=== PATIENT | female | born 1985 | race Caucasian/White ===

== ENCOUNTER → 2016-06-15 | Outpatient (CLI) | payer BC ==
[~2016-06-15] MED LIST: BIOT1CAP3 PO; BIOT1TAB5 PO; BSP5 PO; BUSP15TA70 PO; CHN/1 PO; CHOL20007 PO; CYAN100020 PO; DOCU1TAB6 PO; FLV1 PO; GABA-113 PO; HYDR50CA2 PO; IMT100 PO; IUD'IUD PV; LBR25 PO; LEVOIUD PO; LSX20 PO; LXP10 PO; MRLP527 PO; MULT-875 PO; NALT380I INH; NRN100 PO; ONDA4TAB46 PO; OPTIRAY 320 IV PRN; PANT40TA PO; PHEN-876 PO; POTA10TA32 PO; PXL/10 PO; SENN8.6T13 PO; SULF800T23 PO; SUMA6KIT3 SQ; THM100 PO; XNX25 PO
--- NOTE | 2016-06-15 08:52 | DIAGNOSTIC IMAGING REPORT ---
CT SCAN OF THE ABDOMEN AND PELVIS WITH IV CONTRAST CLINICAL HISTORY: Left lower quadrant abdominal pain. Nausea and weight loss. COMPARISON STUDY: Abdominal CT dated 03/16/2015. TECHNIQUE: Following the IV administration of 92 cc of Optiray 320, CT scan of the abdomen and pelvis is performed from the lung bases to the proximal femora. Images are reviewed in the axial, sagittal, and coronal planes. IV contrast was administered without complication. Automated dose control exposure was utilized. CT DOSE: 367.30 mGycm FINDINGS: Lung bases: The heart is normal in size and without pericardial effusion. A 4 mm right lower lobe nodule seen on image #2 is unchanged from 03/16/2015 and of doubtful significance. The lung bases are otherwise clear. Liver: The contrast-enhanced liver is normal in size, contour, and attenuation. Geographic fat is again seen adjacent to the falciform ligament. There is no intrahepatic biliary ductal dilatation. The hepatic veins and portal veins are patent. Gallbladder: Unremarkable. Spleen: Normal in size and attenuation. Pancreas: Unremarkable. Adrenal glands: Unremarkable. Kidneys: The contrast enhanced kidneys are normal in size and without hydronephrosis. The kidneys enhance symmetrically. 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 2 small nonobstructing renal calculi are identified in the left kidney. Abdominal vasculature: The abdominal aorta is normal in course and caliber. Stomach and bowel: Postoperative change is identified in the stomach. The duodenum is normal in configuration. There is no bowel obstruction. The appendix is well-visualized and normal. Peritoneum: There is no intraperitoneal free air or abdominal ascites. Lymphadenopathy: None. Pelvic viscera: The bladder is decompressed and grossly unremarkable. An intrauterine device is noted. There are bilateral ovarian cysts. Skeletal structures: No lytic or blastic lesions are seen. IMPRESSION: 1. There are no acute infectious or inflammatory findings identified in the abdomen or pelvis. 2. Postoperative change is noted in the stomach. No bowel obstruction is seen. 3. There are tiny nonobstructing left calculi. 4. Additional changes as above. Electronically signed by: Bud Fernandez M.D. 06/15/2016 8:51 AM Dictated Date/Time: 06/15/2016 8:44 AM
== END | disposition home or self-care (01) ==
LOC: C.CTS 08:21
PROVIDERS: ATTEND Internal Medicine Gastroenterology
DX: R10.32 Left lower quadrant pain (principal); R63.4 Abnormal weight loss; R11.10 Vomiting, unspecified

== ENCOUNTER 2016-06-23 14:57 | Inpatient (IN) | payer BC, OTHER ==
[~2016-06-23] VITALS: Ht 172.7 cm; Wt 59.3 kg
[~2016-06-23 14:57] MED LIST changes: -BIOT1TAB5 PO; -BSP5 PO; -BUSP15TA70 PO; -CHN/1 PO; -CHOL20007 PO; -GABA-113 PO; -HYDR50CA2 PO; -IMT100 PO; -IUD'IUD PV; -LEVOIUD PO; -LSX20 PO; -LXP10 PO; -MRLP527 PO; -NALT380I INH; -OPTIRAY 320 IV PRN; -PHEN-876 PO; -POTA10TA32 PO; -PXL/10 PO; -SENN8.6T13 PO; -SULF800T23 PO; -SUMA6KIT3 SQ; -XNX25 PO
[2016-06-23] MEDS ORDERED: LXP10 PO (15:20)
[2016-06-23] MEDS ORDERED: MoRPHine SULFATE 4 MG/ML 1 ML CARP\\VIAL IV STA ×2 (15:31→20:09)
[2016-06-23] MEDS ORDERED: SODIUM CHLORIDE 0.9% 1000ML 1,000 ML IV STA (15:31)
[2016-06-23] MEDS ORDERED: ONDANSETRON INJ 2 MG/ML 2 ML VIAL IV STA (15:31)
[2016-06-23] MEDS ORDERED: SODIUM CHLORIDE 0.9% 500ML 500 ML IV STA (15:31)
[2016-06-23] MEDS ORDERED: LORAZEPAM 2 MG/ML 1 ML VIAL IV STA ×2 (15:31→16:49)
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
[2016-06-23] MEDS ORDERED: MULTI-VITAMIN INFUSION INJ 10 ML, THIAMINE HCL INJ 100 MG, FoLIC ACID INJ 1 MG in SODIU... IV ONE (15:45)
[2016-06-23 16:49] LABS: HEMATOCRIT 42.3 % (37-47); MEAN CORPUSCULAR HEMOGLOBIN 34.1 pg (25-34); MEAN CORPUSCULAR HGB CONC 36.6 g/dl (32-36); MEAN PLATELET VOLUME 10.7 fL (7.4-10.4); PLATELET COUNT 241 K/uL (130-400); RED BLOOD COUNT 4.55 M/uL (4.2-5.4); WHITE BLOOD COUNT 7.08 K/uL (4.8-10.8)
[2016-06-23 16:50] LABS: PREG INTERNAL NEGATIVE QC NEG CLEAR BACKGROUND; PREG INTERNAL POSITIVE QC POS CONTROL LINE
--- NOTE | 2016-06-23 16:54 | DIAGNOSTIC IMAGING REPORT ---
ABDOMEN 2VIEW W/PA CHEST RTN CLINICAL HISTORY: vomiting, pain pain. Nausea. COMPARISON STUDY: No previous studies for comparison. FINDINGS: Lungs are clear. Diaphragms smooth. Bowel pattern is nonobstructive. Several surgical anastomotic lines are present. Intrauterine device is present within the central soft tissue pelvis. IMPRESSION: No acute process of the chest or abdomen Electronically signed by: oClin Holm M.D. 06/23/2016 4:53 PM Dictated Date/Time: 06/23/2016 4:52 PM
[2016-06-23 16:57] LABS: BUN/CREATININE RATIO 13.5 (10-20); CALCIUM 8.9 mg/dl (8.5-10.1); CREATININE 0.66 mg/dl (0.60-1.20); POTASSIUM 3.9 mmol/L (3.5-5.1)
[2016-06-23 17:02] LABS: ACETAMINOPHEN < 2 ug/ml (10-30)
[2016-06-23 17:08] LABS: ALB/GLOB RATIO 1.3 (0.9-2); THYROID STIMULATING HORMONE 1.25 uIu/ml (0.300-4.500)
[2016-06-23 17:24] LABS: URINE APPEARANCE CLEAR (CLEAR); URINE BILIRUBIN NEG (NEG); URINE COLOR YELLOW; URINE NITRITE NEG (NEG); URINE PH 7.5 (4.5-7.5); UROBILINOGEN NEG (NEG); ZZUR CULT IF INDIC CLEAN CATCH NO
[2016-06-23 17:26] LABS: MANUAL MICROSCOPIC REQUIRED? NO; REVIEW REQ? NO
[2016-06-23 17:27] LABS: SULFASALICYLIC ACID NEG (NEG)
[2016-06-23 17:51] LABS: BENZODIAZEPINE, URINE NEG (NEG); COCAINE,URINE NEG (NEG); PHENCYCLIDINE, URINE NEG (NEG)
--- NOTE | 2016-06-23 18:56 | EMERGENCY ROOM VISIT NOTE ---
ED Visit Note First contact with patient: 18:03 The patient was taken in signout from Dr. Greer. I did evaluate the patient and review the diagnostic testing. I did visit with her fiancee and the ED psych caser shoe parts. The patient was reassessed multiple times. She was complaining of a recurrent headache in her chronic abdominal discomfort. She was given 2 mg of IV morphine. On further discussion she thinks that she might have fallen while intoxicated. Because of this head CT was performed and was negative. The patient requested nicotine gum and this was given. The patient also felt like her headache was more related to her migraines which she uses Imitrex 4. She requested Imitrex on several occasions. The patient was reassessed and then was ordered her Imitrex as her mental status was clear. Repeat alcohol was performed and was still mildly elevated. This will delay her mental health evaluation. Because of this her case was signed out to Dr. Morgan at the change of shift.
[2016-06-23] MEDS ORDERED: MoRPHine SULFATE 2 MG/ML CARP ONE (20:26)
[2016-06-23] MEDS ORDERED: NICOTINE 14 MG/24 HR TDSY TD STA (21:01)
--- NOTE | 2016-06-23 21:15 | DIAGNOSTIC IMAGING REPORT ---
HEAD CT NONCONTRAST CT DOSE: 537.48 mGy.cm HISTORY: Mental status change headache, posse fall TECHNIQUE: Multiaxial CT images of the head were performed without the use of intravenous contrast. Comparison: 12/15/2015 Findings: The paranasal sinuses and mastoid air cells are clear. The calvarium and skull base are intact. The ventricles and sulci are within normal limits. There is no mass, hematoma, midline shift, or acute infarct. Impression: No acute intracranial abnormality. Electronically signed by: Colin Holm M.D. 06/23/2016 9:13 PM Dictated Date/Time: 06/23/2016 9:12 PM
[2016-06-24] MEDS ORDERED: SUMATRIPTAN SUCCINATE 50 MG TAB PO STA (03:22)
--- NOTE | 2016-06-24 06:15 | EMERGENCY ROOM VISIT NOTE ---
ED Visit Note First contact with patient: 03:44 This case was signed out to me at change of shift awaiting evaluation by mobile crisis. The patient is sleeping at this time. The patient was felt to be sober around 5 AM. 5:50am: Mobile crisis arrived in the emergency department to evaluate the patient. They did not feel that the patient met criteria for inpatient psychiatric care. When the patient was signed out to me at change of shift, there was some concern voiced by the ED doctor, the manager epic, and the ED psych casework manager from last evening that the patient should be considered for dual diagnosis placement to maintain her safety. I went back and evaluated the patient. I was able to wake her up fairly easily. The patient denied feeling actively suicidal at this time but after a lengthy discussion and voicing my concerns and the concerns of others, she was willing to admit herself voluntarily for inpatient psychiatric care and possible dual diagnosis placement. The patient explained to me that she had 1 previous rehabilitation stay for alcohol that lasted approximately 16 days at [facility]. She does not wish to go back to rehabilitation. Again, I discussed the case with the current manager epic and they will pursue inpatient bed placement. The case was signed out to Dr. Herman at change of shift.
[2016-06-24] MEDS ORDERED: LORAZEPAM 1 MG TAB SL STA (08:26)
[2016-06-24] MEDS ORDERED: NICOTINE 21 MG/24 HR TDSY TD SCH (09:00)
[2016-06-24] MEDS ORDERED: CHLORDIAZEPOXIDE 25 MG CAP PO PRN (10:30)
[2016-06-24] MEDS ORDERED: LORAZEPAM 2 MG/ML 1 ML VIAL IV STA (11:29)
[2016-06-24 11:55] VITALS: O2SAT 97
[2016-06-24] MEDS ORDERED: SODIUM CHLORIDE 0.65% NA SOLN 45 ML (OCEAN) PRN (12:30)
[2016-06-24] MEDS ORDERED: BISMUTH SUBSALICYLATE PER ML OMNICELL CHARGE PO PRN (12:30)
[2016-06-24] MEDS ORDERED: ALUMINUM/MAGNESIUM SUSP 30 ML UDC PO PRN (12:30)
[2016-06-24] MEDS ORDERED: hydrOXYzine HCL 25 MG TAB PO PRN (12:30)
[2016-06-24] MEDS ORDERED: MAGNESIUM HYDROXIDE SUSP 30 ML UDC PO PRN (12:30)
[2016-06-24] MEDS ORDERED: ACETAMINOPHEN 325 MG TAB PO PRN (12:30)
[2016-06-24] MEDS ORDERED: CHLORDIAZEPOXIDE 25 MG CAP PO SCH (12:45)
[2016-06-24] MEDS ORDERED: DOCUSATE SODIUM 100 MG CAP PO PRN (12:45)
[2016-06-24] MEDS ORDERED: GABAPENTIN 600 MG TAB PO SCH (12:45)
[2016-06-24] MEDS ORDERED: LORAZEPAM 2 MG/ML 1 ML VIAL IM PRN (12:45)
[2016-06-24 12:55] VITALS: BP 133/82; PULSE 114; TEMP 37.7; Ht 172.7 cm; Wt 59.3 kg
[2016-06-24] MEDS ORDERED: CHLORDIAZEPOXIDE 50MG Q8H DOSE PO SCH (14:00)
[2016-06-24] MEDS ORDERED: CHLORDIAZEPOXIDE 25MG Q8H DOSE PO SCH (14:00)
[2016-06-24] MEDS: CHLORDIAZEPOXIDE 50MG 1ST DOSE PO SCH ×2 (14:07→17:02)
--- NOTE | 2016-06-24 14:59 | EMERGENCY ROOM VISIT NOTE ---
ED Visit Note Patient signed out to me awaiting bed placement. Treated with Ativen IM and PO Librium. Accepted to [address] [place] [id number] as a 201.
[2016-06-24] MEDS ORDERED: CHLORDIAZEPOXIDE 10MG Q12H DOSE PO SCH (18:00)
[2016-06-24 23:57] VITALS: BP 116/73; PULSE 72; TEMP 36.8
[2016-06-25] MEDS: CHLORDIAZEPOXIDE 50MG 1ST DOSE PO SCH ×2 (00:02→05:52)
[2016-06-25 04:09] VITALS: BP_SYST 109; BP_SYST 111; BP_DIAS 67; BP_DIAS 80; PULSE 71; PULSE 76; TEMP 36.9
[2016-06-25] MEDS: NICOTINE 21 MG/24 HR TDSY TD SCH (05:53)
[2016-06-25 05:58] VITALS: BP 111/75; PULSE 85; TEMP 36.7
[2016-06-25 06:16] VITALS: BP 111/75; PULSE 76; PULSE 85; TEMP 36.7
[2016-06-25 08:51] VITALS: BP 130/90; PULSE 85; TEMP 36.8
[2016-06-25] MEDS ORDERED: NICOTINE 7 MG/24 HR TDSY TD SCH (09:00)
[2016-06-25] MEDS ORDERED: NICOTINE 14 MG/24 HR TDSY TD SCH (09:00)
[2016-06-25] MEDS ORDERED: LORAZEPAM 1 MG TAB PO PRN (11:00)
[2016-06-25] MEDS: NICOTINE POLACRILEX 2 MG GUM MT PRN ×3 (12:22→20:36)
[2016-06-25 12:34] VITALS: BP 123/83; PULSE 85
[2016-06-25] MEDS: hydrOXYzine HCL 25 MG TAB PO PRN (12:34)
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
[2016-06-25] MEDS: CHLORDIAZEPOXIDE 50MG Q8H DOSE PO SCH ×2 (13:42→21:03)
[2016-06-26 04:36] VITALS: BP 103/72; PULSE 78; TEMP 36.3
[2016-06-26] MEDS: CHLORDIAZEPOXIDE 50MG Q8H DOSE PO SCH (05:51)
[2016-06-26 06:45] VITALS: BP_SYST 91; BP_SYST 93; BP_DIAS 61; BP_DIAS 64; PULSE 63; PULSE 65; TEMP 36.8
[2016-06-26] MEDS: NICOTINE 21 MG/24 HR TDSY TD SCH (09:08)
[2016-06-26 09:26] VITALS: BP 100/69; PULSE 79; TEMP 36.4
[2016-06-26] MEDS: hydrOXYzine HCL 25 MG TAB PO PRN (10:12)
[2016-06-26] MEDS: NICOTINE POLACRILEX 2 MG GUM MT PRN ×3 (11:30→21:32)
[2016-06-26] MEDS: CHLORDIAZEPOXIDE 25MG Q8H DOSE PO SCH ×2 (14:02→21:31)
[2016-06-26 16:01] VITALS: BP 109/77; PULSE 89; TEMP 36.5
--- NOTE | 2016-06-26 16:37 | Psychiatric Progress Notes ---
Progress Note Date of Service Jun 26, 2016. Interval History Marina Ny is a 31-year-old female who resides in [place], [place] with her fiance. She was admitted voluntarily with suicidal ideation. Her boyfriend wrote a 302 petition with concerns that she was drinking daily to the point of intoxication and was at risk to harm for herself and making suicidal statements. Chief Complaint "I am fine". Subjective Patient was seen & assessed interval progress reviewed with nursing. Patient is very anxious and upset. she continues to retreat to the bathroom after eating a bites. Denies nausea but say it "just comes up." She had a meeting with her boyfriend today and patient became agitated about her constant vomiting. She plans to follow up with PCP and get referral back to GI. Neither patient or boyfriend view vomiting related to anxiety or mood. She is very anxious today and says the vistaril is not helpful. She does continue to minimize her drinking. In the family meeting her boyfriend expressed significant worry about her safety related to drinking. He became very angry and cursed about rehab places. During my interview with her today she burst in tears after asking when she could be discharge and said that her mother will "make life a living hell" when she goes home. She refuses to have a meeting with her mother while she is here in the hospital because she insists that it will only make matters worse. She agreed to do combined substance abuse counseling and psychotherapy but adamantly refuses inpatient rehab or outpatient substance abuse programs. Patient denies suicidal ideation or thoughts or harming others and becomes exasperated and angry that I would ask these questions. Patient was seen on consult by Dr. Laureen Wayne and it was documented that she agreed to substance abuse treatment on an outpatient basis at that time. Patient denies that she agreed to this. Review of Systems Abdomen: + vomiting Sleep Information Total Hours of Sleep: 5.50 Meal Information Percent of Breakfast Consumed: 0 Percent of Lunch Consumed: 100 Percent of Dinner Consumed: 50 Mental Status Exam During interview pt is: alert and oriented, guarded Appearance: appropriately dressed, appropriately groomed Eye contact is: good Motor behavior is: steady gait & station Speech: normal in rate, rhythm & volume Affect: mood congruent Mood is: angry, anxious Thought process: goal directed Thought content: reality based without delusions Suicidal thought are: denied Homicidal thoughts are: denied Hallucinations: denies auditory, denies visual Cognition: memory grossly intact Intelligence estimated to be: average Insight: impaired Judgement: impaired Impression This is a 31-year-old woman who was admitted after she was found to be intoxicated, lying on the sidewalk in front of her home, her boyfriend and wrote a 302 petitioning statement with his concerns about her inability to care for herself, ongoing suicidality in the context of her alcohol abuse. She tends to minimize her alcohol use and impact on mood although on some level recognizes that it is harmful. She does have medical problems following gastric sleeve surgery. Her primary issue is her alcohol abuse and dependence. She has not had a period when she did not have alcohol use overlying her mood and it is unclear whether or not treating her mood with medication would be helpful at this time. Our primary recommendation would be inpatient rehabilitation; however, the patient is unwilling to consider this option. At this time, the patient is in alcohol withdrawal phase and needs to be monitored in that regard. She is in need of inpatient treatment due to the severity of her condition and her inability to care for herself and risk for self-harm if discharged. Continued Inpatient Care Patient requires inpatient care due to risk of harm to self. Plan (1) Alcohol abuse 2/6 Alcohol use disorder, severe -We will need to educate this patient about the ongoing effects of alcohol abuse and dependence. -She will need a family meeting with her boyfriend. At this point, she is unwilling to include her mother in her care and does not necessarily want her to be here. She did sign a release for her boyfriend and is reportedly allowing him to tell her parents or her mother and stepfather. -Our primary recommendation is inpatient rehabilitation, she is not willing. At this point, we should continue to encourage the patient to consider that. The only thing said she is willing to do at this point is 1:1 counseling, although she did say that she would do that when she was seen on consult in February and did not follow through. - She is on the alcohol withdrawal protocol -q. 15minute safety checks. -Encourage the patient to participate in individual and group counseling. - We will continue the patient's at home supplements if her boyfriend brings them in. - We briefly discussed retrialing an SSRI for her anxiety and mood, which we will continue to consider if she is willing, although it is unclear how much this would be useful as her primary issue is her ongoing alcohol dependence. 06/26 discussed medication for depression and anxiety. patient's anxiety is increased and ongoing. Reviewed the limited benefit of medications if continues to use alcohol. Patient agrees to trial of Buspar 5 mg bid. Review potential side effects. May use Vistaril prn (2) Depression 06/25 We briefly discussed retrialing an SSRI for her anxiety and mood, which we will continue to consider if she is willing, although it is unclear how much this would be useful as her primary issue is her ongoing alcohol dependence. Patient wants something for anxiety. 06/26 continues to be ambivalent about medication for depression as didn't feel Lexapro helpful. Again reviewed limits of medication in primary substance abuse situation. Agrees to trial of buspar as above Discharge / Aftercare Planning Primary Care Physician: Name: Dr Burgess Appointment Notes: as needed Psychiatrist: Name: Paolo Toth Date of Appointment: Jul 04, 2016 Time of Appointment: 1245 Appointment Notes: take insurance card - [address] [place] [address], [place] [id number] Therapist: Name: Har[facility] Phone Number: [phone] Date of Appointment: Jul 03, 2016 Time of Appointment: 3:00 Appointment Notes: [address] [facility] Senior Project Coordinator: Name: cleve Visit Code E&M Code: 60975 Inventory Assets Strengths: Intelligence, employed Needs: To be forthcoming, regarding her the extent of her alcohol use and to be engaged in active treatment. Risk Factors Assessment : Yes Higher / Fall in social status: No Access to guns: No Health problems: Yes Mental Health Diagnoses: Yes Substance use disorders: Yes Previous psychiatric stay: No Smoker: Yes Protective Factors Assessment Lutheran beliefs: No : No Responsible for young children: No Employed: Yes Stable relationships: Yes Data Vital Signs Last 24 Hrs: Date Time Temp Pulse Resp B/P Pulse Ox O2 Delivery O2 Flow Rate FiO2 06/26/16 16:01 36.5 89 16 109/77 06/26/16 09:26 36.4 79 16 100/69 06/26/16 06:45 36.8 63 15 91/61 65 93/64 06/26/16 04:36 36.3 78 16 103/72 Meds Administered Last 24 Hrs: Current Inpatient Medications Medications (Trade) Dose Ordered Sig/Paulette Route Start Time Stop Time Status Last Admin Dose Admin Acetaminophen (Tylenol Tab) 650 mg Q4H PRN PO 06/24/16 12:30 07/24/16 12:29 Bismuth Subsalicylate (Kaopectate Liqd) 15 ml PRN PRN PO 06/24/16 12:30 07/24/16 12:29 Al Hydroxide/Mg Hydroxide (Maalox Susp) 30 ml Q4H PRN PO 06/24/16 12:30 07/24/16 12:29 Magnesium Hydroxide (Milk Of Magnesia Susp) 30 ml DAILY PRN PO 06/24/16 12:30 07/24/16 12:29 Sodium Chloride ([place] Nasal [place]) PRN PRN NA 06/24/16 12:30 07/24/16 12:29 Hydroxyzine HCl (Vistaril Tab) 50 mg HSZ PRN PO 06/24/16 12:30 07/24/16 12:29 06/26/16 00:06 50 MG Hydroxyzine HCl (Vistaril Tab) 25 mg Q4H PRN PO 06/24/16 12:30 07/24/16 12:29 06/26/16 10:12 25 MG Nicotine (Nicoderm Cq 21MG Patch) 1 patch QAM TD 06/25/16 09:00 07/25/16 08:59 06/26/16 09:08 1 PATCH Nicotine Polacrilex (Nicorette 2MG Gum) 1 piece Q2H PRN MT 06/24/16 12:30 07/24/16 12:29 06/26/16 15:51 1 PIECE Miscellaneous (Remove Nicoderm Patch) 1 ea HS N/A 06/24/16 22:00 07/24/16 21:59 06/25/16 22:23 1 EA Docusate Sodium (coLACE CAP) 100 mg BID PRN PO 06/24/16 12:45 07/24/16 12:44 Lorazepam (Ativan Inj) 2 mg TID PRN IM 06/24/16 12:45 07/24/16 12:44 06/24/16 21:00 2 MG Chlordiazepoxide (Librium Cap) 25 mg Q8H PO 06/26/16 14:00 06/27/16 06:01 06/26/16 14:02 25 MG Chlordiazepoxide (Librium Cap) 10 mg Q12H PO 06/27/16 18:00 06/28/16 06:01 Lorazepam (Ativan Tab) 1 mg UD PRN PO 06/25/16 11:00 07/25/16 10:59 06/25/16 20:36 1 MG Buspirone HCl (Buspar Tab) 5 mg BID PO 06/26/16 22:00 07/26/16 21:59
[2016-06-26 20:11] VITALS: BP 116/79; PULSE 84; TEMP 36.5
[2016-06-27] MEDS: CHLORDIAZEPOXIDE 25MG Q8H DOSE PO SCH (06:24)
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
[2016-06-27 08:35] VITALS: BP 120/79; PULSE 74; TEMP 36.4
[2016-06-27] MEDS: NICOTINE 21 MG/24 HR TDSY TD SCH (09:01)
[2016-06-27] MEDS: NICOTINE POLACRILEX 2 MG GUM MT PRN ×2 (10:08→14:19)
[2016-06-27] MEDS ORDERED: BSP5 PO (12:08)
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
[2016-06-27 13:02] VITALS: BP 120/78; PULSE 65; PULSE 74; TEMP 36.4
[2016-06-27 14:41] LABS: COD UR NEGATIVE NG/ML (CUTOFF=50); HYDROCOD UR NEGATIVE NG/ML (CUTOFF=50); HYDROMOR UR NEGATIVE NG/ML (CUTOFF=50); MORPHINE UR 761 NG/ML (CUTOFF=50); NORHYDROCODONE CONF UR NEGATIVE NG/ML (CUTOFF=50); OXYMORPH UR NEGATIVE NG/ML (CUTOFF=50)
[2016-06-27 16:08] VITALS: BP 121/84; PULSE 78; TEMP 36.7
[2016-06-27] MEDS ORDERED: CHLORDIAZEPOXIDE 10MG Q12H DOSE PO SCH (18:00)
[2016-12-05] MEDS ORDERED: CHN/1 PO (19:31)
== END 2016-06-27 18:55 | disposition home or self-care (01) | DRG 897 ==
LOC: C.EDB 14:59 → C.MHU 06-24 11:58
PROVIDERS: ADMIT Psychiatry & Neurology Psychiatry; ATTEND Psychiatry & Neurology Psychiatry
DX: F10.239 Alcohol dependence with withdrawal, unspecified (principal); F32.89 Other specified depressive episodes; F41.9 Anxiety disorder, unspecified; R10.9 Unspecified abdominal pain; R51 Headache; F17.210 Nicotine dependence, cigarettes, uncomplicated; Z62.810 Personal history of physical and sexual abuse in childhood; Z91.419 Personal history of unspecified adult abuse; Z86.59 Personal history of other mental and behavioral disorders; Z98.84 Bariatric surgery status; Z97.5 Presence of (intrauterine) contraceptive device; Z81.1 Family history of alcohol abuse and dependence; Z82.49 Family history of ischemic heart disease and other diseases of the circulatory system; Z83.49 Family history of other endocrine, nutritional and metabolic diseases

== ENCOUNTER → 2016-11-03 | Outpatient (CLI) | payer BC ==
[~2016-11-03] MED LIST changes: +BIOT1TAB5 PO; +BSP5 PO; +BUSP15TA70 PO; +BUSP30TA2 PO; +CHN/1 PO; +CHOL20007 PO; -CYAN100020 PO; +DSY100 PO; -FLV1 PO; +GABA-113 PO; +HYDR50CA PO; +HYDR50CA2 PO; +IMT100 PO; +IUD'IUD PV; -LBR25 PO; +LEVOIUD PO; +LSX20 PO; +MIDO5TAB PO; +MRLP527 PO; +NALT380I INH; -NRN100 PO; -ONDA4TAB46 PO; -PANT40TA PO; +PHEN-876 PO; +POTA10TA32 PO; +PXL/10 PO; +SENN1TAB80 PO; +SULF800T23 PO; +SUMA1INJ5 SQ; +SUMA6KIT3 SQ; -THM100 PO; +XNX25 PO; +ZLF/50 PO
--- NOTE | 2016-11-03 19:22 | DIAGNOSTIC IMAGING REPORT ---
SACRUM COCCYX MIN 2 VIEWS CLINICAL HISTORY: M53.3 pain. Trauma. COMPARISON STUDY: None FINDINGS: No acute process. Margins are intact. IMPRESSION: Negative study Electronically signed by: Colin Holm M.D. 11/03/2016 7:20 PM Dictated Date/Time: 11/03/2016 7:20 PM
== END | disposition home or self-care (01) ==
LOC: C.RAD 18:40
PROVIDERS: ATTEND Family Medicine
DX: M53.3 Sacrococcygeal disorders, not elsewhere classified (principal)

== ENCOUNTER 2016-11-24 18:17 | Emergency (ER) | payer BC ==
[~2016-11-24] VITALS: Ht 172.7 cm; Wt 51.6 kg
[~2016-11-24 18:17] MED LIST changes: -BIOT1TAB5 PO; -BUSP15TA70 PO; -BUSP30TA2 PO; -CHN/1 PO; -CHOL20007 PO; -DSY100 PO; -GABA-113 PO; -HYDR50CA PO; -HYDR50CA2 PO; -IMT100 PO; -IUD'IUD PV; -LEVOIUD PO; -LSX20 PO; -MIDO5TAB PO; -MRLP527 PO; -NALT380I INH; -PHEN-876 PO; -POTA10TA32 PO; -PXL/10 PO; -SENN1TAB80 PO; -SULF800T23 PO; -SUMA1INJ5 SQ; -SUMA6KIT3 SQ; -XNX25 PO; -ZLF/50 PO
[2016-11-24 18:26] VITALS: TEMP 37; Ht 172.7 cm; Wt 51.6 kg
[2016-11-24 18:40] VITALS: O2SAT 100
--- NOTE | 2016-11-24 18:43 | EMERGENCY ROOM VISIT NOTE ---
History Report prepared by Piotr: Ruthy Hernandez Under the Supervision of: Dr. Man Almaraz M.D. First contact with patient: 18:28 Chief Complaint: ALCOHOL OVERDOSE Stated Complaint: ALCOHOL OVERDOSE/ COMBATIVE History of Present Illness The patient is a 31 year old female who presents to the Emergency Room for an alcohol overdose. Per the police who obtained the information on the scene from the patient's fiance. The patient is currently taking Chantix to help her quite smoking. Her fiance has been trying to bring her into the ED for the past 3 days due to the patient having yelling outburst and hallucinations. She has been experiencing trouble sleeping and has not slept much over the past 3 days. She thinks "someone is going to kill her is she sleeps". The patient has been saying that she does not drink however police report her smelling of alcohol. She was combative getting into the ambulance. The patient on September 14 had a gastric sleeve operation completed. Since then she has been experiencing complications, she is unable to stop loosing weight. The patient has been inpatient at [facility]. Per the patient, she states that she was not drinking today. She states that she does drink on occasion and when she does she drinks vodka. The patient notes abdominal pain. She notes her gastric sleeve surgery. The patient has been calling out "they are going to kill me". This HPI is limited due to the patient's intoxicated state. Source of History: patient, police, spouse/significant other History Limited By: intoxication Position: other (global) Quality: other (alcohol intoxication) Associated Symptoms: + abdominal pain Review of Systems All systems have been listed, reviewed, and are negative other than those previously mentioned. Please see Additional Medical History Sheet. Past Medical & Surgical Medical Problems: (1) Alcohol abuse (2) Asthma, mild persistent (3) Depression (4) Dyslipidemia (5) Nausea and vomiting (6) Urethra, diverticulum (7) Vomiting Surgical Problems: (1) H/O arthroscopy of left knee (2) H/O wisdom tooth extraction (3) History of orthopedic surgery (4) History of sleeve gastrectomy (5) History of tonsillectomy and adenoidectomy (6) S/P foot surgery, left (7) S/P tonsillectomy and adenoidectomy (8) [place] teeth extracted Family History Heart disease Hypertension Social History Smoking Status: Current Every Day Smoker Alcohol Use: occasionally Drug Use: none Marital Status: single Housing Status: lives with family Occupation Status: employed Current/Historical Medications Scheduled Biotin (Biotin), 1,000 MCG PO TID Cholecalciferol (Vitamin D3), 1 TAB PO DAILY Levonorgestrel (Iud) (Mirena), 20 MCG PO DAILY Paroxetine (Paroxetine HCl), 10 MG PO DAILY Potassium Chloride Microencaps (Potassium Chloride Er), 10 MEQ PO UD Varenicline (Chantix), 1 MG PO BID UD Scheduled PRN Alprazolam (Alprazolam), 0.25 MG PO TID PRN for Anxiety Furosemide (Furosemide), 20 MG PO DAILY PRN for FLUID Allergies Coded Allergies: No Known Allergies (Verified , `, 06/23/16) Physical Exam Vital Signs Date Time Temp Pulse Resp B/P (MAP) Pulse Ox O2 Delivery O2 Flow Rate FiO2 11/24/16 19:47 95 17 93 11/24/16 19:17 89 20 100 11/24/16 19:02 90 17 121/84 100 Room Air 11/24/16 19:00 121/84 11/24/16 18:47 89 13 99 11/24/16 18:40 100 Room Air 11/24/16 18:28 106 11/24/16 18:26 37.0 105 16 122/87 100 Room Air 11/24/16 18:20 122/87 Physical Exam GENERAL: Patient appears intoxicated. Patient is somewhat cooperative, hysterical at times. Patient awake, alert, oriented x 3. SKIN: No erythema, pallor, cyanosis or rash HEENT: Normal head, pupils equal, reactive to light and accommodation. Oral cavity and posterior pharynx appear normal. Neck: Without adenopathy, no neck vein distention. LUNGS: Clear to auscultation. No wheezes, no rales, no rhonchi. HEART: No murmurs. No gallops. No rubs ABDOMEN: Appears emaciated. No masses, no rebound, no hepatomegaly or splenomegaly. EXTREMITIES: No signs of trauma. No pedal or pretibial edema. No calf or thigh tenderness. NEUROLOGIC: Cranial nerves II-XII within normal limits. No gross motor sensory function deficits. Medical Decision & Procedures Laboratory Results 11/24/16 18:48 7/8/17 18:48 Test 11/24/16 18:48 11/24/16 19:40 Red Blood Count 4.10 M/uL (4.2-5.4) Mean Corpuscular Volume 95.6 fL (80-100) Mean Corpuscular Hemoglobin 33.7 pg (25-34) Mean Corpuscular Hemoglobin Concent 35.2 g/dl (32-36) RDW Standard Deviation 42.9 fL (36.4-46.3) RDW Coefficient of Variation 12.4 % (11.5-14.5) Mean Platelet Volume 9.4 fL (7.4-10.4) Anion Gap 10.0 mmol/L (3-11) Est Creatinine Clear Calc Drug Dose 91.8 ml/min Estimated GFR () 128.1 Estimated GFR (Non- 110.5 BUN/Creatinine Ratio 10.1 (10-20) Calcium Level 8.5 mg/dl (8.5-10.1) Total Bilirubin 0.1 mg/dl (0.2-1) Aspartate Amino Transf (AST/SGOT) 498 U/L (15-37) Alanine Aminotransferase (ALT/SGPT) 440 U/L (12-78) Alkaline Phosphatase 100 U/L (45-117) Total Protein 7.0 gm/dl (6.4-8.2) Albumin 3.7 gm/dl (3.4-5.0) Globulin 3.3 gm/dl (2.5-4.0) Albumin/Globulin Ratio 1.1 (0.9-2) Ethyl Alcohol mg/dL 430.0 mg/dl (0-3) Urine Color YELLOW Urine Appearance CLEAR (CLEAR) Urine pH 7.0 (4.5-7.5) Urine Specific [place] 1.010 (1.000-1.030) Urine Protein TRACE (NEG) Urine Glucose (UA) NEG (NEG) Urine Ketones NEG (NEG) Urine Occult Blood TRACE (NEG) Urine Nitrite NEG (NEG) Urine Bilirubin NEG (NEG) Urine Urobilinogen NEG (NEG) Urine Leukocyte Esterase NEG (NEG) Urine WBC (Auto) /hpf (0-5) Urine RBC (Auto) /hpf (0-4) Urine Hyaline Casts (Auto) /lpf (0-5) Urine Epithelial Cells (Auto) /lpf (0-5) Urine Bacteria (Auto) (NEG) Urine RBC 0-4 /hpf (0-4) Urine WBC 1-5 /hpf (0-5) Urine Epithelial Cells 20-30 /lpf (0-5) Urine Calcium Oxalate Crystals PRESENT (NONE PRSENT) Urine Bacteria NEG (NEG) Urine Test NEG (NEG) Laboratory results as stated above per my review. Medications Administered Medications (Trade) Dose Ordered Sig/Paulette Route Start Time Stop Time Status Last Admin Dose Admin Ondansetron HCl (Zofran Inj) 4 mg PRN PRN IV 11/24/16 18:45 12/24/16 18:44 11/24/16 18:58 4 MG ED Course 1825: Past medical records reviewed. The patient was evaluated in room C6. A complete history and physical examination was performed. 1844: Zofran Inj 4 mg IV. 2030: The patient was signed out to Dr. Son at change of shift. Medical Decision Nurses notes reviewed. Medical history sheet reviewed. Differential diagnosis includes but is not limited to: drug or alcohol intoxication, depression, suicidal ideation. The patient has been apparently depressed for at least a few weeks. She also had some suicidal type statements prior to arrival. The patient is intoxicated and is unable to provide adequate history and evaluation of her mental status at this time. The patient will require observation until she is able to be thoroughly evaluated by mental health. The patient was signed off to Dr. Son at change of shift. Medication Reconciliation: I attest that I have personally reviewed the patient' s current medication list. Blood pressure Screening: Patient was found to have normal blood pressure on screening and does not require follow up. Impression Primary Impression: Alcohol overdose Additional Impressions: Depression Suicidal ideation Hypokalemia Scribe Attestation The scribe's documentation has been prepared under my direction and personally reviewed by me in its entirety. I confirm that the note above accurately reflects all work, treatment, procedures, and medical decision making performed by me. Departure Information Dispostion Still a Patient Referrals Isaiah Jones M.D. (PCP) Patient Instructions My [facility] Problem Qualifiers
[2016-11-24] MEDS ORDERED: ONDANSETRON INJ 2 MG/ML 2 ML VIAL IV PRN (18:45)
[2016-11-24 19:14] LABS: HEMATOCRIT 39.2 % (37-47); MEAN CELL VOLUME 95.6 fL (80-100); MEAN CORPUSCULAR HEMOGLOBIN 33.7 pg (25-34); MEAN CORPUSCULAR HGB CONC 35.2 g/dl (32-36); MEAN PLATELET VOLUME 9.4 fL (7.4-10.4); PLATELET COUNT 268 K/uL (130-400); WHITE BLOOD COUNT 5.47 K/uL (4.8-10.8)
[2016-11-24] MEDS ORDERED: POTA10TA32 PO (19:31)
[2016-11-24] MEDS ORDERED: LSX20 PO (19:31)
[2016-11-24] MEDS ORDERED: PXL/10 PO (19:31)
[2016-11-24] MEDS ORDERED: BIOT1TAB5 PO (19:31)
[2016-11-24] MEDS ORDERED: XNX25 PO (19:31)
[2016-11-24] MEDS ORDERED: CHOL20007 PO (19:31)
[2016-11-24 19:42] LABS: BUN/CREATININE RATIO 10.1 (10-20); CALCIUM 8.5 mg/dl (8.5-10.1); CREATININE 0.73 mg/dl (0.60-1.20); POTASSIUM 3.1 mmol/L (3.5-5.1)
[2016-11-24 19:45] LABS: ALB/GLOB RATIO 1.1 (0.9-2)
[2016-11-24 19:58] LABS: MANUAL MICROSCOPIC REQUIRED? YES; REVIEW REQ? NO; URINE APPEARANCE CLEAR (CLEAR); URINE BILIRUBIN NEG (NEG); URINE COLOR YELLOW; URINE NITRITE NEG (NEG); UROBILINOGEN NEG (NEG); ZZUR CULT IF INDIC CLEAN CATCH NO
[2016-11-24 20:09] LABS: URINE BACTERIA NEG (NEG); URINE RBC 0-4 /hpf (0-4)
[2016-11-24 21:12] LABS: ACETAMINOPHEN < 2 ug/ml (10-30)
--- NOTE | 2016-11-25 02:14 | EMERGENCY ROOM VISIT NOTE ---
ED Visit Note This patient was signed out to me by Dr. Almaraz. Please see his dictation for further details. The patient made some suicidal statements and is highly intoxicated. She will need reassessment and possible mental health evaluation. The patient was sleeping the entire time. I did not interact with her. I did sign the patient out at 2:[address] Anaya.
--- NOTE | 2016-11-25 07:37 | EMERGENCY ROOM VISIT NOTE ---
ED Visit Note First contact with patient: 02:30 31 yr old heavily intoxicated female arrived to ED earlier in evening making suicidal threats. Sleeping now and still severely intoxicated. Signed out to me by Dr Son awaiting sobering up and mental health evaluation. Monitored throughout evening without issue and signed out to Dr Herman in the morning awaiting sobering up.
[2016-11-25 12:32] VITALS: BP 116/74
--- NOTE | 2016-11-25 13:02 | EMERGENCY ROOM VISIT NOTE ---
ED Visit Note First contact with patient: 18:28 I saw this young woman almost 24 hours ago for severe alcohol intoxication. The patient also had made some suicidal type statements. There's been a history of depression. 302 was completed by police. The patient denies any current suicidal ideation. She also believes that she can stop drinking alcohol on her own. The patient has a counselor but is reluctant to see the counselor due to the high co-pays. I also discussed care with the patient's fianc. I spent time speaking with mental health from [facility] [address]. The patient does not meet criteria for a completion of the 302. The patient will therefore be allowed to leave but she was strongly encouraged to follow-up with an alcohol rehabilitation program. She was also told that she cannot have any alcohol. The patient has assured me that she will be safe at home. She denies any suicidal intent and promises that she will not hurt herself.
[2016-11-25 13:20] VITALS: PULSE 88; O2SAT 98
--- NOTE | 2016-11-25 14:49 | EMERGENCY ROOM VISIT NOTE ---
ED Visit Note Patient was signed out to me, however I did not see the patient. Since Dr. Almaraz saw the patient yesterday, he assumed care of the patient. See his note for disposition.
[2016-12-05] MEDS ORDERED: CHN/1 PO (19:31)
== END 2016-11-25 13:20 | disposition home or self-care (01) ==
LOC: EDBD 18:17 → C.EDC 18:21 → C.EDA 11-25 13:20
DX: T51.91XA Toxic effect of unspecified alcohol, accidental (unintentional), initial encounter (principal); R45.6 Violent behavior; F32.9 Major depressive disorder, single episode, unspecified; R45.851 Suicidal ideations; E87.6 Hypokalemia

== ENCOUNTER 2016-12-05 21:54 | Emergency (ER) | payer BC ==
[~2016-12-05] VITALS: Ht 172.7 cm; Wt 50.0 kg
[~2016-12-05 21:54] MED LIST changes: -BIOT1CAP3 PO; +BIOT1TAB5 PO; -BSP5 PO; +CHN/1 PO; +CHOL20007 PO; -DOCU1TAB6 PO; -MULT-875 PO
[2016-12-05 22:01] VITALS: TEMP 37.3; Ht 172.7 cm; Wt 50.0 kg
[2016-12-05] MEDS ORDERED: NICOTINE 21 MG/24 HR TDSY EXT STA (22:16)
[2016-12-05] MEDS ORDERED: PROMETHAZINE HCL INJ 12.5 MG in SODIUM CHLORIDE 0.9% 50ML 50 ML IV STA (22:16)
[2016-12-05] MEDS ORDERED: SODIUM CHLORIDE 0.9% 1000ML 500 ML IV STA (22:16)
[2016-12-05] MEDS ORDERED: MULTI-VITAMIN INFUSION INJ 10 ML, THIAMINE HCL INJ 100 MG, FoLIC ACID INJ 1 MG in SODIU... IV ONE (22:30)
[2016-12-05 22:41] LABS: HEMATOCRIT 45.3 % (37-47); MEAN CELL VOLUME 94.4 fL (80-100); MEAN CORPUSCULAR HEMOGLOBIN 33.3 pg (25-34); MEAN CORPUSCULAR HGB CONC 35.3 g/dl (32-36); MEAN PLATELET VOLUME 9.7 fL (7.4-10.4); PLATELET COUNT 289 K/uL (130-400); WHITE BLOOD COUNT 7.96 K/uL (4.8-10.8)
[2016-12-05] MEDS ORDERED: LEVOIUD PO (22:47)
--- NOTE | 2016-12-05 22:49 | EMERGENCY ROOM VISIT NOTE ---
History Report prepared by Piotr: Nadege Olivas Under the Supervision of: Dr. Bud Greer M.D. 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 The patient's family friend is at bedside and she states that it was hard to keep the patient awake so they brought her into the ED for further evaluation. The patient's family friend was concerned that the patient drank too much alcohol and that she might . The patient admits to being an alcoholic. The patient's last drink of alcohol was just prior to coming into the ED. She states that she wants more. The patient is also experiencing diffuse abdominal pain. She states that she does not eat much secondary to previous abdominal surgeries. The patient states that she vomits constantly. The patient was evaluated in the ED on November 24 for an alcohol overdose. She states that she was going to quit on her own after being in the hospital but that did not work because she quit her job. The patient states that she would like to go to rehab. She has been to [facility] but does not want to go back there. The patient called [facility] [employer] [facility] today but they told her that they will check with her insurance and then get back to her tomorrow. The patient states that she drinks 1 liter of vodka a day. Source of History: patient, spouse/significant other, friend Onset: HOOK TENDER Position: other (global) Quality: other (alcohol overdose) Timing: constant Associated Symptoms: + vomiting, + abdominal pain Review of Systems See HPI for pertinent positives & negatives. A total of 10 systems reviewed and were otherwise negative. Past Medical & Surgical Medical Problems: (1) Alcohol abuse (2) Asthma, mild persistent (3) Depression (4) Dyslipidemia (5) Nausea and vomiting (6) Urethra, diverticulum (7) Vomiting Surgical Problems: (1) H/O arthroscopy of left knee (2) H/O wisdom tooth extraction (3) History of orthopedic surgery (4) History of sleeve gastrectomy (5) History of tonsillectomy and adenoidectomy (6) S/P foot surgery, left (7) S/P tonsillectomy and adenoidectomy (8) [place] teeth extracted Family History Heart disease Hypertension Social History Smoking Status: Current Every Day Smoker Alcohol Use: occasionally Drug Use: none Marital Status: single Housing Status: lives with family Occupation Status: employed Current/Historical Medications Scheduled Levonorgestrel (Iud) (Mirena), 20 MCG PO DAILY Varenicline (Chantix), 1 MG PO BID UD Allergies Coded Allergies: No Known Allergies (Verified , `, 06/23/16) Physical Exam Vital Signs Date Time Temp Pulse Resp B/P (MAP) Pulse Ox O2 Delivery O2 Flow Rate FiO2 12/05/16 23:41 84 16 116/86 98 Room Air 12/05/16 23:15 81 12/05/16 23:11 96 Room Air 12/05/16 22:01 37.3 96 20 138/97 95 Room Air Physical Exam GENERAL: Patient is in no acute distress. Patient has the smell of alcohol on her breath. HEENT: No acute trauma, normocephalic atraumatic, mucous membranes moist, no nasal congestion, no scleral icterus. NECK: No stridor, no adenopathy, no meningismus, trachea is midline. LUNGS: Clear to auscultation bilaterally, no wheeze, no rhonchi, breath sounds equal. HEART: Without murmurs gallops or rubs, regular rate and rhythm. ABDOMEN: Soft, diffusely mildly tender, bowel sounds positive, no hernias, no peritonitis. EXTREMITIES: No cyanosis or edema, full range of motion of all the joints without pain or difficulty, no signs for acute trauma. NEUROLOGIC: Significant intoxication with alcohol, oriented x 3, no acute motor or sensory deficits, no focal weakness. SKIN: No rash, no jaundice, no diaphoresis. Medical Decision & Procedures Laboratory Results 12/05/16 22:25 12/05/16 22:25 Test 12/05/16 22:25 12/05/16 22:53 12/05/16 23:03 Red Blood Count 4.80 M/uL (4.2-5.4) Mean Corpuscular Volume 94.4 fL (80-100) Mean Corpuscular Hemoglobin 33.3 pg (25-34) Mean Corpuscular Hemoglobin Concent 35.3 g/dl (32-36) RDW Standard Deviation 43.0 fL (36.4-46.3) RDW Coefficient of Variation 12.5 % (11.5-14.5) Mean Platelet Volume 9.7 fL (7.4-10.4) Anion Gap 10.0 mmol/L (3-11) Est Creatinine Clear Calc Drug Dose 106.4 ml/min Estimated GFR () 141.0 Estimated GFR (Non- 121.7 BUN/Creatinine Ratio 21.3 (10-20) Calcium Level 8.2 mg/dl (8.5-10.1) Magnesium Level 2.0 mg/dl (1.8-2.4) Total Bilirubin 0.3 mg/dl (0.2-1) Aspartate Amino Transf (AST/SGOT) 144 U/L (15-37) Alanine Aminotransferase (ALT/SGPT) 110 U/L (12-78) Alkaline Phosphatase 126 U/L (45-117) Total Protein 7.1 gm/dl (6.4-8.2) Albumin 3.9 gm/dl (3.4-5.0) Globulin 3.2 gm/dl (2.5-4.0) Albumin/Globulin Ratio 1.2 (0.9-2) Lipase 500 U/L (73-393) Ethyl Alcohol mg/dL 437.0 mg/dl (0-3) Salicylates Level < 1.7 mg/dl (2.8-20) Acetaminophen Level < 2 ug/ml (10-30) Prothrombin Time 10.9 SECONDS (9.0-12.0) Prothromb Time International Ratio 1.0 (0.9-1.1) Activated Partial Thromboplast Time 27.0 SECONDS (21.0-31.0) Partial Thromboplastin Ratio 1.0 Human Chorionic Gonadotropin, Qual NEG (NEG) Laboratory results reviewed by me. Medications Administered Medications (Trade) Dose Ordered Sig/Paulette Route Start Time Stop Time Status Last Admin Dose Admin Sodium Chloride 500 ml @ 999 mls/hr Q31M STAT IV 12/05/16 22:16 12/05/16 22:46 DC 12/05/16 22:16 999 MLS/HR Promethazine HCl 12.5 mg/Sodium Chloride 50.5 ml @ 204 mls/hr NOW STAT IV 12/05/16 22:16 12/05/16 22:30 DC 12/05/16 23:08 204 MLS/HR Nicotine (Nicoderm Cq 21MG Patch) 1 patch NOW STAT EXT 12/05/16 22:16 12/05/16 22:20 DC 12/05/16 22:16 1 PATCH Multivitamins 10 ml/Thiamine HCl 100 mg/Folic Acid 1 mg/Sodium Chloride 1,011.2 ml @ 500 mls/ hr Q2H2M ONCE IV 12/05/16 22:30 12/06/16 00:31 12/05/16 23:08 500 MLS/HR ECG Indication: toxicologic Rate (beats per minute): 96 Rhythm: normal sinus Findings: no acute ischemic change, prolonged QT, no ectopy ED Course 2210: The patient was evaluated in room B7. A complete history and physical exam was performed. 6: Ordered Nicotine 1 patch EXT, Promethazine HCl 12.5 mg/Sodium Chloride 50.5 ml @ 204 mls/hr IV, Sodium Chloride 500 ml @ 999 mls/hr IV 2230: Ordered Multivitamins 10 ml/Thiamine HCl 100 mg/Folic Acid 1 mg/Sodium Chloride 1011.2 ml @ 500 mls/hr IV 2345: The patient was signed out to Dr. Morgan at change of shift while she is awaiting a more sober state. Medical Decision Differential diagnoses considered include alcohol overdose, dehydration, suicidal ideation, anemia, infection, alcoholism. There is no leukocytosis or concerning anemia. No significant electrolyte abnormality or kidney failure. LFTs were elevated consistent with her alcohol abuse. Lipase mildly elevated also consistent with her alcohol abuse. There was no coagulopathy. Alcohol level was around 430, significantly elevated and consistent with her history. Aspirin and Tylenol levels were undetectable. testing was negative. The patient received IV Phenergan. She was given a Nicotine patch. She received IV saline. She received IV saline with thiamine, multivitamins and folate. The patient is an alcoholic and has had too much to drink this evening. She is willing to go to rehabilitation. She will be watched here overnight as her alcohol clears. She can be reassessed in the morning and we can work on potential inpatient rehabilitation/transfer. Her care is being assumed by Dr. Morgan, please see her notes for the final disposition and plan. Medication Reconcilliation Current Medication List: was personally reviewed by me Blood Pressure Screening Patient's blood pressure: Elevated blood pressure Blood pressure disposition: Elevated BP felt to be situational Impression Primary Impression: Alcohol overdose Scribe Attestation The scribe's documentation has been prepared under my direction and personally reviewed by me in its entirety. I confirm that the note above accurately reflects all work, treatment, procedures, and medical decision making performed by me. Departure Information Dispostion Still a Patient Referrals No Doctor, Assigned (PCP) Patient Instructions My [facility] Problem Qualifiers Primary Impression: Alcohol overdose Encounter type: initial encounter Injury intent: undetermined intent Qualified Codes: T51.94XA - Toxic effect of unspecified alcohol, undetermined, initial encounter
[2016-12-05 23:00] LABS: BUN/CREATININE RATIO 21.3 (10-20); CALCIUM 8.2 mg/dl (8.5-10.1); CREATININE 0.61 mg/dl (0.60-1.20); POTASSIUM 4.1 mmol/L (3.5-5.1)
[2016-12-05 23:03] LABS: ALB/GLOB RATIO 1.2 (0.9-2)
[2016-12-05 23:11] VITALS: O2SAT 96
[2016-12-05 23:36] LABS: PROTHROMBIN TIME (PATIENT) 10.9 SECONDS (9.0-12.0)
[2016-12-05 23:45] LABS: PREG INTERNAL NEGATIVE QC NEG CLEAR BACKGROUND; PREG INTERNAL POSITIVE QC POS CONTROL LINE
[2016-12-05 23:59] LABS: ACETAMINOPHEN < 2 ug/ml (10-30)
[2016-12-06] MEDS ORDERED: ACETAMINOPHEN 500 MG TAB PO STA (03:18)
[2016-12-06 03:58] LABS: URINE APPEARANCE CLEAR (CLEAR); URINE BILIRUBIN NEG (NEG); URINE COLOR YELLOW; URINE NITRITE NEG (NEG); UROBILINOGEN NEG (NEG); ZZUR CULT IF INDIC CLEAN CATCH NO
[2016-12-06 04:01] LABS: MANUAL MICROSCOPIC REQUIRED? NO; REVIEW REQ? NO
[2016-12-06 04:18] LABS: BENZODIAZEPINE, URINE NEG (NEG); COCAINE,URINE NEG (NEG); PHENCYCLIDINE, URINE NEG (NEG)
--- NOTE | 2016-12-06 06:22 | EMERGENCY ROOM VISIT NOTE ---
ED Visit Note First contact with patient: 01:07 This case was signed out to me at change of shift awaiting sobriety. The patient is sleeping at this time. Apparently, she contacted [facility] services for rehabilitation earlier yesterday. 2:25: The patient is sound asleep. She is still receiving her banana bag. I spoke with the patient's fianc at the bedside. His understanding is that the patient is willing to go to rehabilitation at [facility] in [place]. Once the patient is more sober, we will confirm this with her and contact [facility]. 0400: The patient complained of a headache. She was given tylenol. She described it as a migraine and requested immitrex. I did not feel comfortable giving her this med because of her significantly elevated alcohol level. 0445: The patient was finally able to give a urine specimen. Urine tox screen was positive for marijuana. I did recheck the patient this time and her headache has improved somewhat. 0630: The patient will be signed out to Dr. Herman at change of shift. The spring encaser spoke with staff from [facility]. They will verify bed availability at 7 AM and call back
[2016-12-06] MEDS ORDERED: CHLORDIAZEPOXIDE 25 MG CAP PO ONE (10:45)
[2016-12-06] MEDS ORDERED: CHLORDIAZEPOXIDE 25 MG CAP PO PRN (13:45)
--- NOTE | 2016-12-06 15:01 | EMERGENCY ROOM VISIT NOTE ---
ED Visit Note The patient was signed out to me awaiting bed placement for a rehabilitation facility. The patient received 2 doses of 50 mg of Librium while she was here. She has been accepted at [facility]. She'll be sent there once the bed is available. The boyfriend is going to take her there. She is not suicidal or homicidal.
[2016-12-06 15:50] VITALS: BP 128/98; PULSE 99; O2SAT 96
== END 2016-12-06 16:00 | disposition home or self-care (01) ==
LOC: C.EDB 21:55 → C.EDA 12-06 16:00
DX: T51.0X1A Toxic effect of ethanol, accidental (unintentional), initial encounter (principal); F10.220 Alcohol dependence with intoxication, uncomplicated; F12.90 Cannabis use, unspecified, uncomplicated; R10.9 Unspecified abdominal pain; R51 Headache; F17.210 Nicotine dependence, cigarettes, uncomplicated; Z82.49 Family history of ischemic heart disease and other diseases of the circulatory system; Y90.8 Blood alcohol level of 240 mg/100 ml or more; J45.30 Mild persistent asthma, uncomplicated; F32.9 Major depressive disorder, single episode, unspecified; E78.5 Hyperlipidemia, unspecified; Z90.3 Acquired absence of stomach [part of]

== ENCOUNTER 2017-02-01 14:41 | Emergency (ER) | payer BC, OTHER ==
[~2017-02-01] VITALS: Ht 172.7 cm; Wt 54.8 kg
[~2017-02-01 14:41] MED LIST changes: -BIOT1TAB5 PO; -CHOL20007 PO; +LEVOIUD PO
[2017-02-01 14:46] VITALS: TEMP 36.9; Ht 172.7 cm; Wt 54.8 kg
[2017-02-01] MEDS ORDERED: SODIUM CHLORIDE 0.9% 1000ML 1,000 ML IV STA (15:27)
[2017-02-01] MEDS ORDERED: KETOROLAC TROMETHAMINE 15 MG/ML VIAL IV STA (15:27)
[2017-02-01] MEDS ORDERED: KETOROLAC TROMETHAMINE 30 MG/ML VIAL ONE (15:48)
[2017-02-01 15:52] LABS: MANUAL MICROSCOPIC REQUIRED? YES; URINE APPEARANCE CLOUDY (CLEAR); URINE COLOR YELLOW; URINE NITRITE NEG (NEG); URINE SPECIFIC GRAVITY >= 1.030 (1.000-1.030); UROBILINOGEN NEG (NEG)
[2017-02-01 15:53] LABS: REVIEW REQ? NO
[2017-02-01 15:58] LABS: URINE BILIRUBIN NEG (NEG)
[2017-02-01 15:59] LABS: BASO % 0.6 %; BASO ABS # 0.03 K/uL (0-0.2); COMPLETE YES; EOS % 2.1 %; HEMATOCRIT 32.5 % (37-47); IG% 0.2 %; LYMPH % 44.7 %; LYMPH ABS # 2.13 K/uL (1.2-3.4); MEAN CELL VOLUME 92.6 fL (80-100); MEAN CORPUSCULAR HEMOGLOBIN 32.5 pg (25-34); MEAN CORPUSCULAR HGB CONC 35.1 g/dl (32-36); MEAN PLATELET VOLUME 9.6 fL (7.4-10.4); MONO % 3.6 %; NEUT % 48.8 %; PLATELET COUNT 256 K/uL (130-400); RED BLOOD COUNT 3.51 M/uL (4.2-5.4); WHITE BLOOD COUNT 4.77 K/uL (4.8-10.8)
[2017-02-01 16:01] LABS: URINE BACTERIA NEG (NEG); URINE RBC >30 /hpf (0-4)
[2017-02-01 16:04] LABS: ZZUR CULT IF INDIC CLEAN CATCH NO
--- NOTE | 2017-02-01 16:17 | EMERGENCY ROOM VISIT NOTE ---
History First contact with patient: 14:48 Chief Complaint: URINARY SYMPTOMS Stated Complaint: HORRIBLE URETHRA PAIN/DISCHARGE Nursing Triage Summary: pt reports urinary sx X 3 days pt reports I am on Vivtrol History of Present Illness The patient is a 32 year old female who presents to the Emergency Room with complaints of "urethral pain." The patient states that for the past 3-4 days, she has had urinary burning, urethral pain and incomplete emptying. She states that she has had white urethral discharge. She denies any vaginal discharge. She has a history of UTIs but states she has never had symptoms like this before. She does report some dull pain in the abdomen, but states that her pain is primarily in her urethra. She denies any fevers/chills. She denies any back pain. Review of Systems A complete 10 point review of systems was reviewed with the patient with pertinent positives and negatives as per history of present illness. All else were negative. Past Medical/Surgical History Medical Problems: (1) Alcohol abuse (2) Asthma, mild persistent (3) Depression (4) Dyslipidemia (5) Nausea and vomiting (6) Urethra, diverticulum (7) Vomiting Surgical Problems: (1) H/O arthroscopy of left knee (2) H/O wisdom tooth extraction (3) History of orthopedic surgery (4) History of sleeve gastrectomy (5) History of tonsillectomy and adenoidectomy (6) S/P foot surgery, left (7) S/P tonsillectomy and adenoidectomy (8) [place] teeth extracted Family History Heart disease Hypertension Social History Smoking Status: Current Every Day Smoker Alcohol Use: occasionally Drug Use: none Marital Status: single Housing Status: lives with family Occupation Status: employed Current/Historical Medications Scheduled Buspirone Hcl (Buspar), 15 MG PO BID Gabapentin (Neurontin), 300 MG PO TID Iud's (Paragard Intrauterine Environmental Engineer), PV UD Naltrexone (Vivitrol), 1 DOSE INH [id number] Phenazopyridine HCl (Pyridium), 200 MG PO TID Sennosides (Senna Lax), 1 TAB PO BID Sulfa/Trimethoprim (Bactrim Ds 800MG/160MG), 1 TAB PO BID Sumatriptan Succinate (Sumatriptan Succinate Ref), 6 MG SQ UD Sumatriptan Succinate (Imitrex), 100 MG PO PRN UD Scheduled PRN Hydroxyzine Pamoate (Vistaril), 50 MG PO QID PRN for SEVERE ANXIETY Polyethylene (Polyethylene Glycol 3350), 1 DOSE PO DAILY PRN for Constipation Physical Exam Vital Signs Date Time Temp Pulse Resp B/P (MAP) Pulse Ox O2 Delivery O2 Flow Rate FiO2 02/01/17 18:46 72 18 102/76 99 02/01/17 15:53 65 20 91/54 99 02/01/17 14:46 36.9 99 18 109/71 99 Room Air Physical Exam VITALS: Vitals are noted on the nurse's note and reviewed by myself. Vital signs stable. GENERAL: This is a 32-year-old female, in no acute distress, nondiaphoretic, well-developed well-nourished. MOUTH: Mucous membranes moist. HEART: Regular rate and rhythm without murmurs gallops or rubs. LUNGS: Clear to auscultation bilaterally without wheezes, rales or rhonchi. ABDOMEN: Positive bowel sounds x 4. Soft, nontender to palpation. PELVIC: External genitalia unremarkable. Small amount of white discharge in the vaginal vault. No cervical motion tenderness. NEURO: Patient was alert and oriented to person place and time. Medical Decision & Procedures ER Provider Diagnostic Interpretation: ABD/PELVIS WITHOUT FOR STONE CLINICAL HISTORY: 32 years-old Female presenting with flank pain, urinary sxs. TECHNIQUE: Multidetector CT of the abdomen and pelvis was performed without the use of intravenous contrast. IV contrast: None. A dose lowering technique was used consistent with the principles of ALARA (as low as reasonably achievable). COMPARISON: 06/15/2016. CT DOSE (mGy.cm): The estimated cumulative dose is 451.28 mGy.cm. 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 Multiple surgical clips project over the left abdomen. Suture material noted in the epigastrium. An intrauterine device is present. Lung bases: The intraventricular blood pool is less dense than the adjacent myocardium suggesting anemia. Normal heart size. No pericardial or pleural effusion. Lung bases clear. Liver: Normal morphology. Focal hypoattenuation along the fissure for the ligamentum teres suggests focal fat, more definitively characterized on prior contrast enhanced CT. Biliary: No gross biliary ductal dilatation allowing for noncontrast technique. Gallbladder surgically absent. Pancreas: Apparent ovoid hypodensity in the region of the uncinate may represent fluid within the transiting horizontal portion of the duodenum as no cystic lesion was noted on prior contrast enhanced CT. No gross pancreatic ductal dilatation. Spleen: Normal noncontrast appearance. Adrenal glands: Normal noncontrast appearance. Kidneys and ureters: Nonobstructing 3 mm calculus in the interpolar region of the left kidney. No right renal calculus. 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 Ureters poorly visualized. Bladder: Incompletely evaluated secondary to underdistention. Pelvic organs: Intrauterine device in place. Normal noncontrast appearance of the ovaries. Bowel: Normal appendix. No bowel obstruction. Postsurgical changes of antecolic Michelle-en-Y gastric bypass. Grossly normal appearance of the gastrojejunostomy and distal small bowel anastomosis. Peritoneal cavity: No free fluid or intraperitoneal gas. Vasculature: Atherosclerosis of the normal caliber abdominal aorta. Lymph nodes: No gross lymphadenopathy allowing for noncontrast technique and possibly of intra-abdominal fat. Abdominal wall: Mild edema may be present. Musculoskeletal: Normal. IMPRESSION: 1. Postsurgical changes of Michelle-en-Y gastric bypass without evidence of complication. 2. Nonobstructing left renal calculus. No hydronephrosis. 3. Evaluation of the urinary bladder is limited due to underdistention. 4. Suggestion of anemia. Laboratory Results 02/01/17 15:40 Red Blood Count 3.51, Mean Corpuscular Volume 92.6, Mean Corpuscular Hemoglobin 32.5, Mean Corpuscular Hemoglobin Concent 35.1, Mean Platelet Volume 9.6, Neutrophils (%) (Auto) 48.8, Lymphocytes (%) (Auto) 44.7, Monocytes (%) (Auto) 3.6, Eosinophils (%) (Auto) 2.1, Basophils (%) (Auto) 0.6, Neutrophils # (Auto) 2.33, Lymphocytes # (Auto) 2.13, Monocytes # (Auto) 0.17, Eosinophils # (Auto) 0.10, Basophils # (Auto) 0.03 02/01/17 15:40 Test 02/01/17 15:15 02/01/17 15:40 02/01/17 18:10 Urine Color YELLOW Urine Appearance CLOUDY (CLEAR) Urine pH 6.0 (4.5-7.5) Urine Specific Reeder >= 1.030 (1.000-1.030) Urine Protein 2+ (NEG) Urine Glucose (UA) NEG (NEG) Urine Ketones TRACE (NEG) Urine Occult Blood 3+ (NEG) Urine Nitrite NEG (NEG) Urine Bilirubin NEG (NEG) Urine Urobilinogen NEG (NEG) Urine Leukocyte Esterase NEG (NEG) Urine RBC >30 /hpf (0-4) Urine WBC 1-5 /hpf (0-5) Urine Epithelial Cells 10-20 /lpf (0-5) Urine Calcium Oxalate Crystals PRESENT (NONE PRSENT) Urine Bacteria NEG (NEG) Urine Hyaline Casts 5-10 /lpf (0-5) White Blood Count 4.77 K/uL (4.8-10.8) Red Blood Count 3.51 M/uL (4.2-5.4) Hemoglobin 11.4 g/dL (12.0-16.0) Hematocrit 32.5 % (37-47) Mean Corpuscular Volume 92.6 fL (80-100) Mean Corpuscular Hemoglobin 32.5 pg (25-34) Mean Corpuscular Hemoglobin Concent 35.1 g/dl (32-36) Platelet Count 256 K/uL (130-400) Mean Platelet Volume 9.6 fL (7.4-10.4) Neutrophils (%) (Auto) 48.8 % Lymphocytes (%) (Auto) 44.7 % Monocytes (%) (Auto) 3.6 % Eosinophils (%) (Auto) 2.1 % Basophils (%) (Auto) 0.6 % Neutrophils # (Auto) 2.33 K/uL (1.4-6.5) Lymphocytes # (Auto) 2.13 K/uL (1.2-3.4) Monocytes # (Auto) 0.17 K/uL (0.11-0.59) Eosinophils # (Auto) 0.10 K/uL (0-0.5) Basophils # (Auto) 0.03 K/uL (0-0.2) RDW Standard Deviation 42.8 fL (36.4-46.3) RDW Coefficient of Variation 12.6 % (11.5-14.5) Immature Granulocyte % (Auto) 0.2 % Immature Granulocyte # (Auto) 0.01 K/uL (0.00-0.02) Anion Gap 7.0 mmol/L (3-11) Est Creatinine Clear Calc Drug Dose 75.8 ml/min Estimated GFR () 94.9 Estimated GFR (Non- 81.9 BUN/Creatinine Ratio 13.7 (10-20) Calcium Level 9.0 mg/dl (8.5-10.1) Total Bilirubin 0.4 mg/dl (0.2-1) Aspartate Amino Transf (AST/SGOT) 22 U/L (15-37) Alanine Aminotransferase (ALT/SGPT) 42 U/L (12-78) Alkaline Phosphatase 76 U/L (45-117) Total Protein 7.4 gm/dl (6.4-8.2) Albumin 4.1 gm/dl (3.4-5.0) Globulin 3.3 gm/dl (2.5-4.0) Albumin/Globulin Ratio 1.2 (0.9-2) Date/Time Source Procedure Growth Status 02/01/17 18:10 Vaginal Swab Trichomonas Preparation - Final Complete Medications Administered Medications (Trade) Dose Ordered Sig/Paulette Route Start Time Stop Time Status Last Admin Dose Admin Sodium Chloride 1,000 ml @ 999 mls/hr Q1H1M STAT IV 02/01/17 15:27 02/01/17 16:27 DC 02/01/17 15:47 999 MLS/HR Ketorolac Tromethamine (Toradol Inj) 15 mg NOW STAT IV 02/01/17 15:27 02/01/17 15:29 DC 02/01/17 15:51 15 MG Medical Decision Differential diagnosis includes UTI, pyelonephritis, kidney stone, pelvic infection, among others. The patient is a 32-year-old female who presents today complaining of pain in the area of the urethra. Labs revealed no leukocytosis, anemia or concerning electrolyte abnormalities. CT showed no obstructing urinary calculi. Urinalysis was suggestive of infection and did have the presence of a large amount of blood. Urine was negative. Pelvic exam was performed and cultures were obtained. There is no clear evidence of pelvic infection on exam. Urine culture is pending. The patient will be placed on Bactrim and Pyridium for suspected urinary tract infection. She was encouraged to return for any worsening or new/concerning symptoms. Based on the patient's presentation and work up, I feel the patient is stable for outpatient treatment. The patient was educated to return to the emergency department for any worsening of their current condition or new/concerning symptoms. She will follow up with her PCP. The patient's case was reviewed with Dr. Greer, ED attending physician, who agreed with my assessment and treatment plan. Medication Reconcilliation Current Medication List: was personally reviewed by me Blood Pressure Screening Patient's blood pressure: Normal blood pressure Impression Primary Impression: Symptoms of urinary tract infection Departure Information Dispostion Home / Self-Care Condition GOOD Prescriptions Phenazopyridine HCl (Pyridium) 200 Mg Tab 200 MG PO TID for 3 Days, #9 TAB Prov: Betsy Blanchard PA-C 02/01/17 Sulfa/Trimethoprim (Bactrim Ds 800MG/160MG) Tab 1 TAB PO BID for 7 Days, #14 TAB Prov: Betsy Blanchard .STIVEN 02/01/17 Referrals Isaiah Jones M.D. (PCP) Patient Instructions My [facility] Additional Instructions You were prescribed Bactrim to be taken twice daily as prescribed. This is an antibiotic. All antibiotics have the potential to cause diarrhea. Stop this medication and contact a medical provider if you were to develop any significant adverse side effects including: wheezing, shortness of breath, passing out, vomiting, or a diffuse rash. Always take antibiotics as directed and COMPLETE the ENTIRE course regardless of the improvement of your symptoms. For pain control, you can use the following [id number] medicines (if >12 yo): - Regular strength (325mg/tab) Tylenol (acetaminophen) 2 tabs every 4-6 hours as needed. Do not exceed 12 tablets in a 24 hour period. Avoid taking more than 4 grams (4000 mg) of Tylenol per day. This includes any other sources of acetaminophen you may take on a regular basis. - Regular strength (200 mg/tab) Advil (ibuprofen) 1-2 tabs every 4-6 hours as needed. Do not exceed a dose of 3200 mg per day. You have been prescribed Pyridium to be taken as prescribed. This medicine will help with the urinary symptoms that you have been experiencing. Be aware that Pyridium may turn your urine a red-orange or brown color. This effect is harmless. Drink plenty of fluids. Follow-up with your primary care provider next week for a recheck. Return to the emergency department with fevers, worsening pain, or any other new /concerning symptoms.
[2017-02-01 16:18] LABS: BUN/CREATININE RATIO 13.7 (10-20); CREATININE 0.93 mg/dl (0.60-1.20); POTASSIUM 3.9 mmol/L (3.5-5.1)
[2017-02-01 16:21] LABS: ALB/GLOB RATIO 1.2 (0.9-2)
--- NOTE | 2017-02-01 16:34 | DIAGNOSTIC IMAGING REPORT ---
ABD/PELVIS WITHOUT FOR STONE CLINICAL HISTORY: 32 years-old Female presenting with flank pain, urinary sxs. TECHNIQUE: Multidetector CT of the abdomen and pelvis was performed without the use of intravenous contrast. IV contrast: None. A dose lowering technique was used consistent with the principles of ALARA (as low as reasonably achievable). COMPARISON: 06/15/2016. CT DOSE (mGy.cm): The estimated cumulative dose is 451.28 mGy.cm. 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 Multiple surgical clips project over the left abdomen. Suture material noted in the epigastrium. An intrauterine device is present. Lung bases: The intraventricular blood pool is less dense than the adjacent myocardium suggesting anemia. Normal heart size. No pericardial or pleural effusion. Lung bases clear. Liver: Normal morphology. Focal hypoattenuation along the fissure for the ligamentum teres suggests focal fat, more definitively characterized on prior contrast enhanced CT. Biliary: No gross biliary ductal dilatation allowing for noncontrast technique. Gallbladder surgically absent. Pancreas: Apparent ovoid hypodensity in the region of the uncinate may represent fluid within the transiting horizontal portion of the duodenum as no cystic lesion was noted on prior contrast enhanced CT. No gross pancreatic ductal dilatation. Spleen: Normal noncontrast appearance. Adrenal glands: Normal noncontrast appearance. Kidneys and ureters: Nonobstructing 3 mm calculus in the interpolar region of the left kidney. No right renal calculus. 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 Ureters poorly visualized. Bladder: Incompletely evaluated secondary to underdistention. Pelvic organs: Intrauterine device in place. Normal noncontrast appearance of the ovaries. Bowel: Normal appendix. No bowel obstruction. Postsurgical changes of antecolic Michelle-en-Y gastric bypass. Grossly normal appearance of the gastrojejunostomy and distal small bowel anastomosis. Peritoneal cavity: No free fluid or intraperitoneal gas. Vasculature: Atherosclerosis of the normal caliber abdominal aorta. Lymph nodes: No gross lymphadenopathy allowing for noncontrast technique and possibly of intra-abdominal fat. Abdominal wall: Mild edema may be present. Musculoskeletal: Normal. IMPRESSION: 1. Postsurgical changes of Michelle-en-Y gastric bypass without evidence of complication. 2. Nonobstructing left renal calculus. No hydronephrosis. 3. Evaluation of the urinary bladder is limited due to underdistention. 4. Suggestion of anemia. Electronically signed by: Twan Morgan M.D. 02/01/2017 4:33 PM Dictated Date/Time: 02/01/2017 4:25 PM
[2017-02-01] MEDS ORDERED: HYDR50CA2 PO (16:37)
[2017-02-01] MEDS ORDERED: MRLP527 PO (16:37)
[2017-02-01] MEDS ORDERED: NALT380I INH (16:37)
[2017-02-01] MEDS ORDERED: IMT100 PO (16:37)
[2017-02-01] MEDS ORDERED: BUSP15TA70 PO (16:37)
[2017-02-01] MEDS ORDERED: IUD'IUD PV (16:37)
[2017-02-01] MEDS ORDERED: SUMA6KIT3 SQ (16:37)
[2017-02-01] MEDS ORDERED: SENN8.6T13 PO (16:37)
[2017-02-01] MEDS ORDERED: GABA-113 PO (16:37)
[2017-02-01] MEDS ORDERED: SULF800T23 PO (18:22)
[2017-02-01] MEDS ORDERED: PHEN-876 PO (18:23)
[2017-02-01 18:46] VITALS: BP 102/76; PULSE 72; O2SAT 99
--- NOTE | 2017-02-04 13:28 | Pharmacy Progress Note ---
ED Pharmacist Culture FollowUp Date of Service: Feb 04, 2017. Patient was sent home with a prescription for Bactrim 1 tab BID X 7 days, which should cover the coag neg staph growing from the patient's urine culture.
[2017-02-04 14:03] LABS: CHLAMYDIA TRACH RNA*** NOT DETECTED (NOT DETECTED); GC (NEIS GONORRHOEAE)RNA** NOT DETECTED (NOT DETECTED)
== END 2017-02-01 18:50 | disposition home or self-care (01) ==
LOC: C.EDB 14:42
DX: N39.0 Urinary tract infection, site not specified (principal); E78.5 Hyperlipidemia, unspecified; F32.9 Major depressive disorder, single episode, unspecified; J45.30 Mild persistent asthma, uncomplicated; F17.200 Nicotine dependence, unspecified, uncomplicated; Z79.899 Other long term (current) drug therapy; Z97.5 Presence of (intrauterine) contraceptive device; Z82.49 Family history of ischemic heart disease and other diseases of the circulatory system

== ENCOUNTER → 2017-04-16 | Outpatient (CLI) | payer OTHER ==
[~2017-04-16] MED LIST changes: +BUSP15TA70 PO; +BUSP30TA2 PO; -CHN/1 PO; +DSY100 PO; +GABA-113 PO; +GADAVIST IV PRN; +HYDR50CA PO; +HYDR50CA2 PO; +IMT100 PO; +IUD'IUD PV; -LEVOIUD PO; +MIDO5TAB PO; +MRLP527 PO; +NALT380I INH; +SENN1TAB80 PO; +SUMA1INJ5 SQ; +SUMA6KIT3 SQ; +ZLF/50 PO
--- NOTE | 2017-04-16 21:34 | DIAGNOSTIC IMAGING REPORT ---
R UPPER EXT NONJOINT COMBO CLINICAL HISTORY: R THUMB INJURY trauma. Pain. TECHNIQUE: Multi axial MRI acquisition COMPARISON STUDY: None FINDINGS: Findings of mild degenerative cystic change and dorsal aspect distal aspect first metacarpal. Minimal associated soft tissue edema. Minimal cystic change distal aspect second metacarpal. Her graft all ligaments and tendinous structures are intact. No evidence for abnormal mass or collection. Signal characteristics of the soft tissue structures are considered unremarkable. Postcontrast images show minimal postcontrast enhancement at the site of degenerative cystic change dorsal aspect first metacarpal. No additional foci of enhancement are appreciated. IMPRESSION: 1. Minimal degenerative cystic change dorsal aspect distal first metacarpal. 2. This shows mild postcontrast enhancement, suggesting either of active degenerative change or perhaps an atypical arthritic process, such as gouty/psoriatic arthritic change.. 3. No evidence for abnormal mass or collection. 4. All major ligamentous and tendinous structures are intact. The above report was generated using voice recognition software. It may contain grammatical, syntax or spelling errors. Electronically signed by: Colin Holm M.D. 04/16/2017 9:33 PM Dictated Date/Time: 04/16/2017 9:29 PM
== END | disposition home or self-care (01) ==
LOC: C.MRI 19:21
PROVIDERS: ATTEND Family Medicine
DX: S69.90XA Unspecified injury of unspecified wrist, hand and finger(s), initial encounter (principal); X58.XXXA Exposure to other specified factors, initial encounter; M67.432 Ganglion, left wrist

== ENCOUNTER 2017-04-22 16:20 | Inpatient (IN) | payer OTHER ==
[~2017-04-22] VITALS: Ht 172.7 cm; Wt 52.6 kg
[~2017-04-22 16:20] MED LIST changes: -BUSP30TA2 PO; -DSY100 PO; -GABA-113 PO; -GADAVIST IV PRN; -HYDR50CA PO; -IMT100 PO; -MIDO5TAB PO; -MRLP527 PO; -NALT380I INH; -SUMA1INJ5 SQ; -ZLF/50 PO
[2017-04-22] MEDS ORDERED: GABA-113 PO (16:37)
[2017-04-22] MEDS ORDERED: IMT100 PO (16:37)
[2017-04-22] MEDS ORDERED: NALT380I INH (16:37)
[2017-04-22] MEDS ORDERED: MRLP527 PO (16:37)
[2017-04-22] MEDS ORDERED: KETOROLAC TROMETHAMINE 30 MG/ML VIAL IV STA (18:08)
[2017-04-22] MEDS ORDERED: ONDANSETRON INJ 2 MG/ML 2 ML VIAL IV STA (18:08)
[2017-04-22] MEDS ORDERED: SODIUM CHLORIDE 0.9% 1000ML 1,000 ML IV STA (18:08)
[2017-04-22] MEDS ORDERED: HYDROmorphone INJ 2 MG/ML SYR/VIAL IV PRN (18:15)
--- NOTE | 2017-04-22 18:25 | EMERGENCY ROOM VISIT NOTE ---
History Report prepared by Piotr: Lea Rodríguez Under the Supervision of: Dr. Bud Greer M.D. First contact with patient: 18:03 Chief Complaint: ABDOMINAL PAIN Stated Complaint: SEVERE STOMACH PAIN, 2 PREVIOUS SURGERIES Nursing Triage Summary: pt reports severe abdominal pain located on LUQ + NV this started this AM pt reports I have not been able to keep food down for 2.5 years I use protien shakes for nutrient unable to keep that down today History of Present Illness The patient is a 32 year old female who presents to the Emergency Room with complaints of constant abdominal pain beginning this morning. The patient states that she has been having severe left sided abdominal pain that she rates as an 8/10 in severity. She reports that she has a history of abdominal surgery- -she had a gastric sleeve in 2015 and surgery in August 2016 as well. She notes that she is not able to keep food down and in August they did surgery to attempt to fix it. The patient states that sitting up straight and standing worsen her symptoms. She notes that she had a light bowel movement recently. She complains of nausea and vomiting. She denies any urinary symptoms, diarrhea, fever, and sick contacts. She notes that she is a recovering alcoholic. Source of History: patient Onset: this morning Position: abdomen Quality: sharp Timing: constant Modifying Factors (Worsening): other (sitting up and standing) Associated Symptoms: + nausea, + vomiting, No fevers, No diarrhea, No urinary symptoms Review of Systems See HPI for pertinent positives & negatives. A total of 10 systems reviewed and were otherwise negative. Past Medical & Surgical Medical Problems: (1) Alcohol abuse (2) Asthma, mild persistent (3) Depression (4) Dyslipidemia (5) Nausea and vomiting (6) SBO (small bowel obstruction) (7) Urethra, diverticulum (8) Vomiting Surgical Problems: (1) H/O arthroscopy of left knee (2) H/O wisdom tooth extraction (3) History of orthopedic surgery (4) History of sleeve gastrectomy (5) History of tonsillectomy and adenoidectomy (6) S/P foot surgery, left (7) S/P tonsillectomy and adenoidectomy (8) [place] teeth extracted Family History Heart disease Hypertension Social History Smoking Status: Current Some Day Smoker Alcohol Use: none Drug Use: none Marital Status: single Housing Status: lives with family Occupation Status: employed Current/Historical Medications Scheduled Buspirone Hcl (Buspirone Hcl), 30 MG PO BID Gabapentin (Neurontin), 300 MG PO TID Midodrine Hcl (Midodrine Hcl), 5 MG PO TID Naltrexone (Vivitrol), 1 DOSE INH [id number] Sertraline HCl (Sertraline HCl), 75 MG PO DAILY Sumatriptan Succinate (Imitrex), 100 MG PO PRN UD Scheduled PRN Hydroxyzine Pamoate (Vistaril), 50 MG PO QID PRN for Anxiety Polyethylene (Polyethylene Glycol 3350), 1 DOSE PO DAILY PRN for Constipation Sennosides (Senna Lax), 1 TAB PO BID PRN for Constipation Trazodone HCl (Trazodone HCl), 200 MG PO HS PRN for Sleep Allergies Coded Allergies: No Known Allergies (Verified , `, 06/23/16) Physical Exam Vital Signs Date Time Temp Pulse Resp B/P (MAP) Pulse Ox O2 Delivery O2 Flow Rate FiO2 04/22/17 18:30 54 18 108/66 98 Room Air 04/22/17 16:29 36.7 96 20 104/73 96 Room Air Physical Exam GENERAL: Patient is in no acute distress. HEENT: No acute trauma, normocephalic atraumatic, mucous membranes moist, no nasal congestion, no scleral icterus. NECK: No stridor, no adenopathy, no meningismus, trachea is midline. LUNGS: Clear to auscultation bilaterally, no wheeze, no rhonchi, breath sounds equal. HEART: Without murmurs gallops or rubs, regular rate and rhythm. ABDOMEN: Soft, significantly tender along the entire left side, bowel sounds positive, no hernias, no peritonitis. EXTREMITIES: No cyanosis or edema, full range of motion of all the joints without pain or difficulty, no signs for acute trauma. NEUROLOGIC: Oriented x 3, no acute motor or sensory deficits, no focal weakness. SKIN: No rash, no jaundice, no diaphoresis. Medical Decision & Procedures ER Provider Diagnostic Interpretation: Radiology results as stated below per my review and radiologist interpretation: SINGLE VIEW CHEST FINDINGS: An AP, portable, upright chest radiograph is compared to study dated 06/23/16 and correlated with chest CT dated 03/11/2016. The cardiomediastinal silhouette is unremarkable. The lungs and pleural spaces are clear. Nipple shadows project over both lung bases. No pneumothorax is seen. The bony thorax is grossly intact. Cholecystectomy clips are seen in the right upper quadrant. IMPRESSION: No active disease in the chest. Electronically signed by: Bud Fernandez M.D. 04/22/2017 6:25 PM Dictated Date/Time: 04/22/2017 6:[address] ABD/PELVIS IV CONTRAST ONLY FINDINGS: Lower chest: The heart is normal in size and configuration, without pericardial effusion. The lung bases and pleural spaces are clear. Liver: There are no suspicious hepatic masses. There is focal fat in the region of the falciform ligament. Gallbladder: Surgically absent Spleen: Normal in size and attenuation. Pancreas: Unremarkable. Adrenal glands: Unremarkable. Kidneys: There is symmetric renal cortical enhancement. The kidneys are normal in size without hydronephrosis. Bowel: Difficult to evaluate given the lack of orally administered contrast, and the paucity of intra-abdominal fat. There are no findings to indicate acute diverticulitis. There are postsurgical changes of a presumed gastric bypass and Michelle-en-Y anastomosis. There are dilated left upper quadrant small bowel loops measuring up to 3.5 cm in diameter. The distal small bowel is of normal caliber. Peritoneum: There is no intraperitoneal free air or abdominal ascites. Vasculature: The abdominal aorta is normal in course and caliber. Adenopathy: None. Pelvic viscera: There is an indwelling IUD. Skeletal structures: No destructive osseous lesions are seen. IMPRESSION: 1. Difficult study to interpret secondary to the paucity of intra-abdominal fat and the lack of orally administered contrast 2. Postsurgical changes of a gastric bypass 3. Interval development of dilated fluid-filled left upper quadrant small bowel loops, with normal caliber distal small bowel. The findings are indicative of a small bowel obstruction. It is difficult with certainty to determine whether these efferent or afferent loops. Electronically signed by: Amador Tavera M.D. 04/22/2017 7:45 PM Dictated Date/Time: 04/22/2017 7:36 PM Laboratory Results 04/22/17 18:30 Red Blood Count 4.85, Mean Corpuscular Volume 88.0, Mean Corpuscular Hemoglobin 30.7, Mean Corpuscular Hemoglobin Concent 34.9, Mean Platelet Volume 10.2, Neutrophils (%) (Auto) 52.4, Lymphocytes (%) (Auto) 42.7, Monocytes (%) (Auto) 3.6, Eosinophils (%) (Auto) 0.8, Basophils (%) (Auto) 0.4, Neutrophils # (Auto) 3.74, Lymphocytes # (Auto) 3.05, Monocytes # (Auto) 0.26, Eosinophils # (Auto) 0.06, Basophils # (Auto) 0.03 04/22/17 18:30 Test 04/22/17 18:30 04/22/17 18:55 White Blood Count 7.15 K/uL (4.8-10.8) Red Blood Count 4.85 M/uL (4.2-5.4) Hemoglobin 14.9 g/dL (12.0-16.0) Hematocrit 42.7 % (37-47) Mean Corpuscular Volume 88.0 fL (80-100) Mean Corpuscular Hemoglobin 30.7 pg (25-34) Mean Corpuscular Hemoglobin Concent 34.9 g/dl (32-36) Platelet Count 247 K/uL (130-400) Mean Platelet Volume 10.2 fL (7.4-10.4) Neutrophils (%) (Auto) 52.4 % Lymphocytes (%) (Auto) 42.7 % Monocytes (%) (Auto) 3.6 % Eosinophils (%) (Auto) 0.8 % Basophils (%) (Auto) 0.4 % Neutrophils # (Auto) 3.74 K/uL (1.4-6.5) Lymphocytes # (Auto) 3.05 K/uL (1.2-3.4) Monocytes # (Auto) 0.26 K/uL (0.11-0.59) Eosinophils # (Auto) 0.06 K/uL (0-0.5) Basophils # (Auto) 0.03 K/uL (0-0.2) RDW Standard Deviation 39.5 fL (36.4-46.3) RDW Coefficient of Variation 12.2 % (11.5-14.5) Immature Granulocyte % (Auto) 0.1 % Immature Granulocyte # (Auto) 0.01 K/uL (0.00-0.02) Anion Gap 3.0 mmol/L (3-11) Est Creatinine Clear Calc Drug Dose 74.4 ml/min Estimated GFR () 97.4 Estimated GFR (Non- 84.1 BUN/Creatinine Ratio 18.7 (10-20) Calcium Level 9.4 mg/dl (8.5-10.1) Total Bilirubin 0.2 mg/dl (0.2-1) Aspartate Amino Transf (AST/SGOT) 42 U/L (15-37) Alanine Aminotransferase (ALT/SGPT) 83 U/L (12-78) Alkaline Phosphatase 102 U/L (45-117) Total Protein 8.1 gm/dl (6.4-8.2) Albumin 4.4 gm/dl (3.4-5.0) Globulin 3.7 gm/dl (2.5-4.0) Albumin/Globulin Ratio 1.2 (0.9-2) Lipase 207 U/L (73-393) Lactic Acid Level 1.2 mmol/L (0.4-2.0) Laboratory results reviewed by me. Medications Administered Medications (Trade) Dose Ordered Sig/Paulette Route Start Time Stop Time Status Last Admin Dose Admin Ondansetron HCl (Zofran Inj) 4 mg NOW STAT IV 04/22/17 18:08 04/22/17 18:11 DC 04/22/17 18:31 4 MG Sodium Chloride 1,000 ml @ 999 mls/hr Q1H1M STAT IV 04/22/17 18:08 04/22/17 19:22 DC 04/22/17 18:31 999 MLS/HR Hydromorphone HCl (Dilaudid Inj) 1 mg Q30M PRN IV 04/22/17 18:15 05/06/17 18:14 04/22/17 18:31 1 MG Ketorolac Tromethamine (Toradol Inj) 30 mg NOW STAT IV 04/22/17 18:08 04/22/17 18:11 DC 04/22/17 18:30 30 MG Morphine Sulfate (MoRPHine SULFATE INJ) 6 mg NOW STAT IV 04/22/17 19:55 04/22/17 19:56 DC 04/22/17 20:03 6 MG ED Course 1803: The patient was evaluated in room A3. A complete history and physical exam was performed. 1807: Toradol Inj 30mg IV, Sodium Chloride 1000 ml @ 999 mls/hr IV, Zofran Inj IV. 1814: Dilaudid Inj 1mg PRN IV Pain. 1952: I spoke to Dr. Larry. He would like the patient admitted to medicine. 1954: Morphine Sulfate 6mg IV. 2011: I spoke to Dr. Lopez [facility]. He will evaluate the patient for further management. She is willing to try an NG tube. 2037: Upon reexamination the patient is doing well. I discussed results and treatment plan with the patient. She verbalizes agreement and understanding. I spoke with Dr. Lopez [facility]. We discussed the patient's results and findings. The patient will be evaluated for further management. Medical Decision The patient is a 32 year old female who presents to the ED with complaints of abdominal pain. Differential diagnoses considered include bowel obstruction, renal colic, UTI, bowel perforation, mesenteric ischemia, pancreatitis, diverticulitis, hernia. There is no leukocytosis or concerning anemia. No significant electrolyte abnormality or kidney failure. There is no pancreatitis. There were a few subtle liver enzyme elevations. Chest film does not show pneumonia or free air. Abdominal and pelvis CT shows evidence for a small bowel obstruction, no bowel perforation. Lactic acid level is not elevated making bowel ischemia less likely. The patient received IV saline, IV Zofran. She was given IV Toradol. She received IV Dilaudid and IV morphine. I did speak to the on-call surgeon, he recommended an NG tube and a medical hospital stay.. I spoke to case management, the on-call hospitalist was consulted. I talked to the patient at length. She is willing to undergo an NG tube to try to decompress the stomach. This was ordered. Medication Reconcilliation Current Medication List: was personally reviewed by me Blood Pressure Screening Patient's blood pressure: Normal blood pressure Blood pressure disposition: Did not require urgent referral Consults Time Called: 1949 Consulting Physician: Dr. Larry - surgery Returned Call: [address] Larry. He would like the patient admitted to medicine. Additional Consults: Time Called: 2008 Consulted Physician: Dr. Juan Christian [facility] Returned Call: 2011 Additional Comments: I spoke to Dr. Lopez [facility]. He will evaluate the patient for further management. She is willing to try an NG tube. Impression Primary Impression: SBO (small bowel obstruction) Additional Impression: Vomiting Scribe Attestation The scribe's documentation has been prepared under my direction and personally reviewed by me in its entirety. I confirm that the note above accurately reflects all work, treatment, procedures, and medical decision making performed by me. Departure Information Dispostion Being Evaluated By Hospitalist Isaiah Kaplan M.D. (PCP) Patient Instructions My [facility] Problem Qualifiers
[2017-04-22] MEDS ORDERED: OPTIRAY 320 IV PRN (18:30)
[2017-04-22 19:12] LABS: BASO % 0.4 %; BASO ABS # 0.03 K/uL (0-0.2); COMPLETE YES; EOS % 0.8 %; HEMATOCRIT 42.7 % (37-47); IG% 0.1 %; LYMPH % 42.7 %; LYMPH ABS # 3.05 K/uL (1.2-3.4); MEAN CORPUSCULAR HEMOGLOBIN 30.7 pg (25-34); MEAN CORPUSCULAR HGB CONC 34.9 g/dl (32-36); MEAN PLATELET VOLUME 10.2 fL (7.4-10.4); MONO % 3.6 %; NEUT % 52.4 %; PLATELET COUNT 247 K/uL (130-400); RED BLOOD COUNT 4.85 M/uL (4.2-5.4); WHITE BLOOD COUNT 7.15 K/uL (4.8-10.8)
[2017-04-22 19:15] LABS: BUN/CREATININE RATIO 18.7 (10-20); CALCIUM 9.4 mg/dl (8.5-10.1); CREATININE 0.91 mg/dl (0.60-1.20); POTASSIUM 3.7 mmol/L (3.5-5.1)
[2017-04-22 19:17] LABS: ALB/GLOB RATIO 1.2 (0.9-2)
--- NOTE | 2017-04-22 19:46 | DIAGNOSTIC IMAGING REPORT ---
CT ABD/PELVIS IV CONTRAST ONLY CLINICAL HISTORY: Generalized abdominal pain. Suspected bowel obstruction. COMPARISON STUDY: 02/01/2017 TECHNIQUE: Following the IV administration of 90 mL of Optiray-320, CT scan of the abdomen and pelvis was performed from the lung bases to the proximal femurs. Images are reviewed in the axial, sagittal, and coronal planes. IV contrast was administered without complication. A dose lowering technique was utilized adhering to the principles of ALARA. CT DOSE: 272.20 mGy.cm FINDINGS: Lower chest: The heart is normal in size and configuration, without pericardial effusion. The lung bases and pleural spaces are clear. Liver: There are no suspicious hepatic masses. There is focal fat in the region of the falciform ligament. Gallbladder: Surgically absent Spleen: Normal in size and attenuation. Pancreas: Unremarkable. Adrenal glands: Unremarkable. Kidneys: There is symmetric renal cortical enhancement. The kidneys are normal in size without hydronephrosis. Bowel: Difficult to evaluate given the lack of orally administered contrast, and the paucity of intra-abdominal fat. There are no findings to indicate acute diverticulitis. There are postsurgical changes of a presumed gastric bypass and Michelle-en-Y anastomosis. There are dilated left upper quadrant small bowel loops measuring up to 3.5 cm in diameter. The distal small bowel is of normal caliber. Peritoneum: There is no intraperitoneal free air or abdominal ascites. Vasculature: The abdominal aorta is normal in course and caliber. Adenopathy: None. Pelvic viscera: There is an indwelling IUD. Skeletal structures: No destructive osseous lesions are seen. IMPRESSION: 1. Difficult study to interpret secondary to the paucity of intra-abdominal fat and the lack of orally administered contrast 2. Postsurgical changes of a gastric bypass 3. Interval development of dilated fluid-filled left upper quadrant small bowel loops, with normal caliber distal small bowel. The findings are indicative of a small bowel obstruction. It is difficult with certainty to determine whether these efferent or afferent loops. Electronically signed by: Amador Tavera M.D. 04/22/2017 7:45 PM Dictated Date/Time: 04/22/2017 7:36 PM
[2017-04-22] MEDS ORDERED: ZLF/50 PO (19:55)
[2017-04-22] MEDS ORDERED: MoRPHine SULFATE 10 MG/ML CARP/VIAL IV STA (19:55)
[2017-04-22] MEDS ORDERED: DSY100 PO (19:55)
[2017-04-22] MEDS ORDERED: HYDR50CA PO (19:55)
[2017-04-22] MEDS ORDERED: BUSP30TA2 PO (19:55)
[2017-04-22] MEDS ORDERED: MIDO5TAB PO (19:55)
[2017-04-22] MEDS ORDERED: SUMA1INJ5 SQ (21:13)
[2017-04-22] MEDS ORDERED: LORAZEPAM 2 MG/ML 1 ML VIAL IV PRN (21:15)
[2017-04-22] MEDS ORDERED: ONDANSETRON INJ 2 MG/ML 2 ML VIAL IV PRN (21:15)
[2017-04-22] MEDS ORDERED: BISACODYL 10 MG SUPP PR PRN (21:15)
[2017-04-22] MEDS ORDERED: LORAZEPAM INJ 0.5 MG in SYRINGE 0.75 ML IV PRN (21:30)
--- NOTE | 2017-04-22 21:55 | Surgery Consultation ---
Consultation Date of Consultation: Apr 22, 2017. Attending Physician: Shahid Wong M.D. History of Present Illness The patient is a 32 year old female who presents to the Emergency Room with complaints of constant abdominal pain beginning this morning. The patient states that she has been having severe left sided abdominal pain that she rates as an 8/10 in severity. She reports that she has a history of abdominal surgery- -she had a gastric sleeve in 2015 and surgery in August 2016 as well. She notes that she is not able to keep food down and in August they did surgery to attempt to fix it. The patient states that sitting up straight and standing worsen her symptoms. She notes that she had a light bowel movement recently. She complains of nausea and vomiting. She denies any urinary symptoms, diarrhea, fever, and sick contacts. She notes that she is a recovering alcoholic. I saw pt, and I reviewed pt's H/P with pt, pt is still have Left abdominal pain , pt did not know when she had last BM, pt denies fever, pt denies fever, Past Medical/Surgical History Medical Problems: (1) Alcohol intoxication Status: Acute (2) Alcohol overdose Status: Acute (3) Alcohol overdose Status: Acute (4) Dehydration Status: Acute (5) Diffuse abdominal pain Status: Acute (6) Hypokalemia Status: Acute (7) Right-sided chest pain Status: Acute (8) Suicidal ideation Status: Acute (9) Suicidal ideations Status: Acute (10) Vomiting Status: Chronic Family History Heart disease Hypertension Social History Smoking Status: Current Some Day Smoker Alcohol Use: occasionally Drug Use: none Marital Status: single Housing Status: lives with family Occupation Status: employed Allergies Coded Allergies: No Known Allergies (Verified , `, 06/23/16) Home Medications Scheduled Buspirone Hcl (Buspirone Hcl), 30 MG PO BID Gabapentin (Neurontin), 300 MG PO TID Naltrexone (Vivitrol), 1 DOSE INH [id number] Sertraline HCl (Sertraline HCl), 75 MG PO DAILY Sumatriptan Succinate (Imitrex), 100 MG PO PRN UD Scheduled PRN Hydroxyzine Pamoate (Vistaril), 50 MG PO QID PRN for Anxiety Polyethylene (Polyethylene Glycol 3350), 1 DOSE PO DAILY PRN for Constipation Sennosides (Senna Lax), 1 TAB PO BID PRN for Constipation Sumatriptan Succinate (Sumatriptan Succinate), 6 MG SQ UD PRN for Migraine Trazodone HCl (Trazodone HCl), 200 MG PO HS PRN for Sleep Current Inpatient Medications Current Inpatient Medications Medications (Trade) Dose Ordered Sig/Paulette Route Start Time Stop Time Status Last Admin Dose Admin Ioversol (Optiray 320) 125 ml UD PRN IV 04/22/17 18:30 04/26/17 18:29 Acetaminophen 650 mg/Empty Bag 65 ml @ 260 mls/hr Q6H IV 04/22/17 21:15 04/24/17 21:14 UNV Ondansetron HCl (Zofran Inj) 4 mg Q6H PRN IV 04/22/17 21:15 05/22/17 21:14 Bisacodyl (Dulcolax Supp) 10 mg DAILY PRN CA 04/22/17 21:15 05/22/17 21:14 Potassium Chloride/Dextrose/ Sod Cl 1,000 ml @ 100 mls/hr Q10H IV 04/22/17 22:00 05/22/17 21:59 Lorazepam 0.5 mg/ Syringe 1 ml @ 1 mls/min Q4H PRN IV 04/22/17 21:30 05/22/17 21:29 Ketorolac Tromethamine (Toradol Inj) 30 mg Q6H PRN IV 04/22/17 21:45 04/27/17 21:44 UNV Review of Systems Constitutional: No fever, No chills, No sweats, No weight loss, No weakness, No fatigue, No problem reported Eyes: No worsening of vision, No eye pain, No redness, No discharge, No diplopia, No problem reported ENT: No hearing loss, No unusual epistaxis, No nasal symptoms, No sore throat, No tinnitus, No dental problems, No trouble swallowing, No problem reported Respiratory: No cough, No sputum, No wheezing, No shortness of breath, No dyspnea on exertion, No dyspnea at rest, No hemoptysis, No problem reported Abdomen: + pain, + nausea, + vomiting Musculoskeletal: No joint pain, No muscle pain, No swelling, No calf pain, No problem reported Genitourinary - Female: No dysuria, No urinary frequency, No urinary urgency, No urinary incontinence, No urinary retention, No hematuria, No dysmenorrhea, No menorrhagia, No metrorrhagia, No rash, No vaginal bleeding, No vaginal discharge, No vaginal itching, No vulvodynia, No , No problem reported Neurologic: No memory loss, No paralysis, No weakness, No numbness/tingling, No vertigo, No balance problems, No problem reported Psychiatric: No depression symptoms, No anhedonism, No anxiety, No insomnia, No substance abuse, No problem reported Endocrine: No fatigue, No excessive thirst, No excessive urination, No problem reported Hematologic / Lymphatic: No abnormal bleeding/bruising, No clotting problems, No swollen lymph nodes, No night sweats, No problem reported Physical Exam Date Time Temp Pulse Resp B/P (MAP) Pulse Ox O2 Delivery O2 Flow Rate FiO2 04/22/17 20:30 55 18 103/65 98 Room Air 04/22/17 18:30 54 18 108/66 98 Room Air 04/22/17 16:29 36.7 96 20 104/73 96 Room Air General Appearance: WD/WN, no apparent distress Head: normocephalic Eyes: normal inspection ENT: normal ENT inspection Neck: supple, no JVD Respiratory/Chest: chest non-tender, lungs clear, normal breath sounds Cardiovascular: regular rate, rhythm, no edema, no gallop, no JVD, no murmur Abdomen/GI: normal bowel sounds, + tenderness (at left abdomen, no rebound pain ) Extremities/Musculoskelatal: normal inspection, no calf tenderness, normal capillary refill Neurologic/Psych: no motor/sensory deficits, alert, normal mood/affect Skin: normal color, warm/dry, no rash Laboratory Results Last 24 Hours Test 04/22/17 18:30 04/22/17 18:55 White Blood Count 7.15 K/uL Red Blood Count 4.85 M/uL Hemoglobin 14.9 g/dL Hematocrit 42.7 % Mean Corpuscular Volume 88.0 fL Mean Corpuscular Hemoglobin 30.7 pg Mean Corpuscular Hemoglobin Concent 34.9 g/dl Platelet Count 247 K/uL Mean Platelet Volume 10.2 fL Neutrophils (%) (Auto) 52.4 % Lymphocytes (%) (Auto) 42.7 % Monocytes (%) (Auto) 3.6 % Eosinophils (%) (Auto) 0.8 % Basophils (%) (Auto) 0.4 % Neutrophils # (Auto) 3.74 K/uL Lymphocytes # (Auto) 3.05 K/uL Monocytes # (Auto) 0.26 K/uL Eosinophils # (Auto) 0.06 K/uL Basophils # (Auto) 0.03 K/uL RDW Standard Deviation 39.5 fL RDW Coefficient of Variation 12.2 % Immature Granulocyte % (Auto) 0.1 % Immature Granulocyte # (Auto) 0.01 K/uL Sodium Level 133 mmol/L Potassium Level 3.7 mmol/L Chloride Level 101 mmol/L Carbon Dioxide Level 29 mmol/L Anion Gap 3.0 mmol/L Blood Urea Nitrogen 17 mg/dl Creatinine 0.91 mg/dl Est Creatinine Clear Calc Drug Dose 74.4 ml/min Estimated GFR () 97.4 Estimated GFR (Non- 84.1 BUN/Creatinine Ratio 18.7 Random Glucose 87 mg/dl Calcium Level 9.4 mg/dl Total Bilirubin 0.2 mg/dl Aspartate Amino Transf (AST/SGOT) 42 U/L Alanine Aminotransferase (ALT/SGPT) 83 U/L Alkaline Phosphatase 102 U/L Total Protein 8.1 gm/dl Albumin 4.4 gm/dl Globulin 3.7 gm/dl Albumin/Globulin Ratio 1.2 Lipase 207 U/L Lactic Acid Level 1.2 mmol/L Assessment & Plan CT DOSE: 272.20 mGy.cm FINDINGS: Lower chest: The heart is normal in size and configuration, without pericardial effusion. The lung bases and pleural spaces are clear. Liver: There are no suspicious hepatic masses. There is focal fat in the region of the falciform ligament. Gallbladder: Surgically absent Spleen: Normal in size and attenuation. Pancreas: Unremarkable. Adrenal glands: Unremarkable. Kidneys: There is symmetric renal cortical enhancement. The kidneys are normal in size without hydronephrosis. Bowel: Difficult to evaluate given the lack of orally administered contrast, and the paucity of intra-abdominal fat. There are no findings to indicate acute diverticulitis. There are postsurgical changes of a presumed gastric bypass and Michelle-en-Y anastomosis. There are dilated left upper quadrant small bowel loops measuring up to 3.5 cm in diameter. The distal small bowel is of normal caliber. Peritoneum: There is no intraperitoneal free air or abdominal ascites. Vasculature: The abdominal aorta is normal in course and caliber. Adenopathy: None. Pelvic viscera: There is an indwelling IUD. Skeletal structures: No destructive osseous lesions are seen. IMPRESSION: 1. Difficult study to interpret secondary to the paucity of intra-abdominal fat and the lack of orally administered contrast 2. Postsurgical changes of a gastric bypass 3. Interval development of dilated fluid-filled left upper quadrant small bowel loops, with normal caliber distal small bowel. The findings are indicative of a small bowel obstruction. It is difficult with certainty to determine whether these efferent or afferent loops. Assessment: pt is a 32 yo female who presents to ER for abdominal pain with nausea and vomiting, CT scan- SBO, IMP S/P gastric bypass, SBO base on history of gastric bypass surgery, this hospital has no gastric bypass surgery team, pt dose not want to go back to [facility], pt wants to transfer to [facility], D/W benefits, risks nad alternatives of the transfer, pt understood, she agrees with transfer plan.
[2017-04-22 22:27] VITALS: BP 107/70; PULSE 65; TEMP 36.7; O2SAT 96; Ht 172.7 cm; Wt 52.6 kg
--- NOTE | 2017-04-22 22:47 | DIAGNOSTIC IMAGING REPORT ---
KUB CLINICAL HISTORY: There is a gastric tube placement COMPARISON STUDY: CT scan dated 04/22/2017 FINDINGS: There are postsurgical changes present. There is contrast within the renal collecting systems secondary to the prior CT scan. There are surgical clips the right upper quadrant consistent with a prior cholecystectomy. There is a nasogastric tube within the gastric fundus. An IUD is visualized. IMPRESSION: The recently placed nasogastric tube is positioned within the stomach Electronically signed by: Amador Tavera M.D. 04/22/2017 10:45 PM Dictated Date/Time: 04/22/2017 10:44 PM
--- NOTE | 2017-04-22 22:55 | History and Physical ---
History & Physical Date & Time of Service: Apr 22, 2017 at 21:37 Chief Complaint: Severe Stomach Pain, 2 Previous Surgeries Primary Care Physician: Isaiah Jones M.D. History of Present Illness Source: patient, clinic records, hospital records 32 yo F presents with worsening abdominal pain since this morning and has had a long history of intolerance to PO. She states that she can only tolerate liquids including her protein shake and that is what she has been subsisting on. She has a h/o sleeve gastrectomy in October [address] Brantley at [facility]. She then developed worsening pain tolerance and in August 2016 was readmitted to [facility] where a diagnostic laparotomy was performed resulting in a conversation of her sleeve gastrectomy to a gastric bypass. She also had placement of a G-tube temporarily, and a cholecystectomy. Since that time she has been continuing to lose weight and not tolerating solids at all. She has not established care with anyone else since then and refuses to return to [facility] at this point. Dr Larry from General Surgery saw her and recommends transfer to a tertiary care center where she can be better managed with her history. And NGT was difficult to place in the ER and was attempted again on the floor and was successful. She is a recovering alcoholic who is taking Vivitrol shots (naltrexone) receiving her last shot on 04/17 with a 5-10 day half-life. None of the narcotics she has received tonight have worked to help manage her pain as a result. Past Medical/Surgical History Medical Problems: (1) Alcohol abuse Status: Chronic (2) Asthma, mild persistent Status: Chronic (3) Dyslipidemia Status: Chronic (4) Urethra, diverticulum Status: Chronic (5) Vomiting Status: Chronic Surgical Problems: (1) H/O arthroscopy of left knee Status: Chronic (2) H/O wisdom tooth extraction Status: Resolved (3) History of orthopedic surgery Status: Resolved (4) History of sleeve gastrectomy Status: Chronic (5) History of tonsillectomy and adenoidectomy Status: Chronic (6) S/P foot surgery, left Status: Chronic (7) S/P tonsillectomy and adenoidectomy Status: Resolved (8) Shannon teeth extracted Status: Chronic Family History Heart disease Hypertension Social History Smoking Status: Current Some Day Smoker Smokeless Tobacco Use: No Alcohol Use: none (prior alcoholic) Drug Use: none Marital Status: single Housing status: lives with significant other Occupational Status: employed Immunizations History of Influenza Vaccine: No History of Tetanus Vaccine?: Yes Tetanus Immunization Date: Aug 18, 2010 History of Pneumococcal: No History of Hepatitis B Vaccine: Yes Hepatitis Immunization Date: May 20, 2003 Multi-Drug Resistant Organisms History of MDRO: No Allergies Coded Allergies: No Known Allergies (Verified , `, 06/23/16) Home Medications Scheduled Buspirone Hcl (Buspirone Hcl), 30 MG PO BID Gabapentin (Neurontin), 300 MG PO TID Naltrexone (Vivitrol), 1 DOSE INH [id number] Sertraline HCl (Sertraline HCl), 75 MG PO DAILY Sumatriptan Succinate (Imitrex), 100 MG PO PRN UD Scheduled PRN Hydroxyzine Pamoate (Vistaril), 50 MG PO QID PRN for Anxiety Polyethylene (Polyethylene Glycol 3350), 1 DOSE PO DAILY PRN for Constipation Sennosides (Senna Lax), 1 TAB PO BID PRN for Constipation Sumatriptan Succinate (Sumatriptan Succinate), 6 MG SQ UD PRN for Migraine Trazodone HCl (Trazodone HCl), 200 MG PO HS PRN for Sleep Review of Systems At least ten systems were reviewed and negative except as indicated in HPi. Physical Exam Vital Signs Date Time Temp Pulse Resp B/P (MAP) Pulse Ox O2 Delivery O2 Flow Rate FiO2 04/22/17 20:30 55 18 103/65 98 Room Air 04/22/17 18:30 54 18 108/66 98 Room Air 04/22/17 16:29 36.7 96 20 104/73 96 Room Air General Appearance: WD/WN, + moderate distress Head: normocephalic, atraumatic, + pertinent finding (bloody nose after recent failed NGT attempt) Eyes: normal inspection, PERRL, sclerae normal ENT: hearing grossly normal, pharynx normal Neck: supple, trachea midline Respiratory/Chest: lungs clear, normal breath sounds, no respiratory distress, no accessory muscle use Cardiovascular: regular rate, rhythm, no edema, no gallop, no JVD, no murmur, normal peripheral pulses Abdomen/GI: normal bowel sounds, soft, + tenderness (LUQ/LLQ), + guarding Back: normal inspection Extremities/Musculoskelatal: normal inspection, normal range of motion Neurologic/Psych: 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-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 nml as tested, no motor/sensory deficits, alert, normal mood/affect, oriented x 3 Skin: normal color, warm/dry, no rash Diagnostics Laboratory Results 04/22/17 18:30 Red Blood Count 4.85, Mean Corpuscular Volume 88.0, Mean Corpuscular Hemoglobin 30.7, Mean Corpuscular Hemoglobin Concent 34.9, Mean Platelet Volume 10.2, Neutrophils (%) (Auto) 52.4, Lymphocytes (%) (Auto) 42.7, Monocytes (%) (Auto) 3.6, Eosinophils (%) (Auto) 0.8, Basophils (%) (Auto) 0.4, Neutrophils # (Auto) 3.74, Lymphocytes # (Auto) 3.05, Monocytes # (Auto) 0.26, Eosinophils # (Auto) 0.06, Basophils # (Auto) 0.03 04/22/17 18:30 Test 04/22/17 18:30 04/22/17 18:55 White Blood Count 7.15 K/uL (4.8-10.8) Red Blood Count 4.85 M/uL (4.2-5.4) Hemoglobin 14.9 g/dL (12.0-16.0) Hematocrit 42.7 % (37-47) Mean Corpuscular Volume 88.0 fL (80-100) Mean Corpuscular Hemoglobin 30.7 pg (25-34) Mean Corpuscular Hemoglobin Concent 34.9 g/dl (32-36) Platelet Count 247 K/uL (130-400) Mean Platelet Volume 10.2 fL (7.4-10.4) Neutrophils (%) (Auto) 52.4 % Lymphocytes (%) (Auto) 42.7 % Monocytes (%) (Auto) 3.6 % Eosinophils (%) (Auto) 0.8 % Basophils (%) (Auto) 0.4 % Neutrophils # (Auto) 3.74 K/uL (1.4-6.5) Lymphocytes # (Auto) 3.05 K/uL (1.2-3.4) Monocytes # (Auto) 0.26 K/uL (0.11-0.59) Eosinophils # (Auto) 0.06 K/uL (0-0.5) Basophils # (Auto) 0.03 K/uL (0-0.2) RDW Standard Deviation 39.5 fL (36.4-46.3) RDW Coefficient of Variation 12.2 % (11.5-14.5) Immature Granulocyte % (Auto) 0.1 % Immature Granulocyte # (Auto) 0.01 K/uL (0.00-0.02) Anion Gap 3.0 mmol/L (3-11) Est Creatinine Clear Calc Drug Dose 74.4 ml/min Estimated GFR () 97.4 Estimated GFR (Non- 84.1 BUN/Creatinine Ratio 18.7 (10-20) Calcium Level 9.4 mg/dl (8.5-10.1) Total Bilirubin 0.2 mg/dl (0.2-1) Aspartate Amino Transf (AST/SGOT) 42 U/L (15-37) Alanine Aminotransferase (ALT/SGPT) 83 U/L (12-78) Alkaline Phosphatase 102 U/L (45-117) Total Protein 8.1 gm/dl (6.4-8.2) Albumin 4.4 gm/dl (3.4-5.0) Globulin 3.7 gm/dl (2.5-4.0) Albumin/Globulin Ratio 1.2 (0.9-2) Lipase 207 U/L (73-393) Lactic Acid Level 1.2 mmol/L (0.4-2.0) Results Past 24 Hours Test 04/22/17 18:30 04/22/17 18:55 Range/Units White Blood Count 7.15 4.8-10.8 K/uL Red Blood Count 4.85 4.2-5.4 M/uL Hemoglobin 14.9 12.0-16.0 g/dL Hematocrit 42.7 37-47 % Mean Corpuscular Volume 88.0 80-100 fL Mean Corpuscular Hemoglobin 30.7 25-34 pg Mean Corpuscular Hemoglobin Concent 34.9 32-36 g/dl Platelet Count 247 130-400 K/uL Mean Platelet Volume 10.2 7.4-10.4 fL Neutrophils (%) (Auto) 52.4 % Lymphocytes (%) (Auto) 42.7 % Monocytes (%) (Auto) 3.6 % Eosinophils (%) (Auto) 0.8 % Basophils (%) (Auto) 0.4 % Neutrophils # (Auto) 3.74 1.4-6.5 K/uL Lymphocytes # (Auto) 3.05 1.2-3.4 K/uL Monocytes # (Auto) 0.26 0.11-0.59 K/uL Eosinophils # (Auto) 0.06 0-0.5 K/uL Basophils # (Auto) 0.03 0-0.2 K/uL RDW Standard Deviation 39.5 36.4-46.3 fL RDW Coefficient of Variation 12.2 11.5-14.5 % Immature Granulocyte % (Auto) 0.1 % Immature Granulocyte # (Auto) 0.01 0.00-0.02 K/uL Sodium Level 133 136-145 mmol/L Potassium Level 3.7 3.5-5.1 mmol/L Chloride Level 101 98-107 mmol/L Carbon Dioxide Level 29 21-32 mmol/L Anion Gap 3.0 3-11 mmol/L Blood Urea Nitrogen 17 7-18 mg/dl Creatinine 0.91 0.60-1.20 mg/dl Est Creatinine Clear Calc Drug Dose 74.4 ml/min Estimated GFR () 97.4 Estimated GFR (Non- 84.1 BUN/Creatinine Ratio 18.7 10-20 Random Glucose 87 70-99 mg/dl Calcium Level 9.4 8.5-10.1 mg/dl Total Bilirubin 0.2 0.2-1 mg/dl Aspartate Amino Transf (AST/SGOT) 42 15-37 U/L Alanine Aminotransferase (ALT/SGPT) 83 12-78 U/L Alkaline Phosphatase 102 45-117 U/L Total Protein 8.1 6.4-8.2 gm/dl Albumin 4.4 3.4-5.0 gm/dl Globulin 3.7 2.5-4.0 gm/dl Albumin/Globulin Ratio 1.2 0.9-2 Lipase 207 73-393 U/L Lactic Acid Level 1.2 0.4-2.0 mmol/L Diagnostic Radiology CT ABD/PELVIS IV CONTRAST ONLY CLINICAL HISTORY: Generalized abdominal pain. Suspected bowel obstruction. COMPARISON STUDY: 02/01/2017 TECHNIQUE: Following the IV administration of 90 mL of Optiray-320, CT scan of the abdomen and pelvis was performed from the lung bases to the proximal femurs. Images are reviewed in the axial, sagittal, and coronal planes. IV contrast was administered without complication. A dose lowering technique was utilized adhering to the principles of ALARA. CT DOSE: 272.20 mGy.cm FINDINGS: Lower chest: The heart is normal in size and configuration, without pericardial effusion. The lung bases and pleural spaces are clear. Liver: There are no suspicious hepatic masses. There is focal fat in the region of the falciform ligament. Gallbladder: Surgically absent Spleen: Normal in size and attenuation. Pancreas: Unremarkable. Adrenal glands: Unremarkable. Kidneys: There is symmetric renal cortical enhancement. The kidneys are normal in size without hydronephrosis. Bowel: Difficult to evaluate given the lack of orally administered contrast, and the paucity of intra-abdominal fat. There are no findings to indicate acute diverticulitis. There are postsurgical changes of a presumed gastric bypass and Michelle-en-Y anastomosis. There are dilated left upper quadrant small bowel loops measuring up to 3.5 cm in diameter. The distal small bowel is of normal caliber. Peritoneum: There is no intraperitoneal free air or abdominal ascites. Vasculature: The abdominal aorta is normal in course and caliber. Adenopathy: None. Pelvic viscera: There is an indwelling IUD. Skeletal structures: No destructive osseous lesions are seen. IMPRESSION: 1. Difficult study to interpret secondary to the paucity of intra-abdominal fat and the lack of orally administered contrast 2. Postsurgical changes of a gastric bypass 3. Interval development of dilated fluid-filled left upper quadrant small bowel loops, with normal caliber distal small bowel. The findings are indicative of a small bowel obstruction. It is difficult with certainty to determine whether these efferent or afferent loops. SINGLE VIEW CHEST CLINICAL HISTORY: Generalized abdominal pain. FINDINGS: An AP, portable, upright chest radiograph is compared to study dated 06/23/16 and correlated with chest CT dated 03/11/2016. The cardiomediastinal silhouette is unremarkable. The lungs and pleural spaces are clear. Nipple shadows project over both lung bases. No pneumothorax is seen. The bony thorax is grossly intact. Cholecystectomy clips are seen in the right upper quadrant. IMPRESSION: No active disease in the chest. Impression Assessment and Plan 32 yo with h/o abdominal surgeries and chronic intolerance to solid foods with chronic constipation presents with acute SBO 1. SBO-likely 2/2 scar tissue. An NGT was placed after several failed attempts. She is on naltrexone shots with a long half-life and, therefore, the IV narcotics have not been able to touch the pain. Continuing with IV Toradol, APAP, Ativan and Zofran PRN. Per Gen Surg the patient will need to be transferred to a tertiary care center for further care. Cont IVF while NPO. 2. Tobacco use-educated on the benefits of quitting and she uses vape now but occasionally still smokes. 3. h/o alcohol abuse-takes naltrexone shots as outpatient. Reports compliance with sobriety 4. Weight loss-malnourished from inability to tolerate solid foods. Will need to address this at receiving facility and get her involved with GI nutrition team. DVT proph-SCDs Full Code Dispo-Med/Surg, arranging for transfer to [facility]. Lakshmi Carrillo, DO [facility]ist VTE Prophylaxis VTE Risk Assessment Done? Y/N: Yes Risk Level: Moderate Given or contraindicated: Treatment not indicated
[2017-04-22 23:10] VITALS: BP 112/71; PULSE 61; TEMP 36.9; O2SAT 99
--- NOTE | 2017-04-22 23:12 | Discharge Instructions ---
Discharge Instructions Date of Service Apr 22, 2017. Admission Reason for Admission: Small Bowel Obstruction Discharge Discharge Diagnosis / Problem: SBO Discharge Goals Goal(s): Therapeutic intervention Activity Recommendations Activity Limitations: per Instructions/Follow-up section . Instructions / Follow-Up Instructions / Follow-Up Current Inpatient Medications Medications (Trade) Dose Ordered Sig/Paulette Route Start Time Stop Time Status Last Admin Dose Admin Ioversol (Optiray 320) 125 ml UD PRN IV 04/22/17 18:30 04/26/17 18:29 Acetaminophen 650 mg/Empty Bag 65 ml @ 260 mls/hr Q6H IV 04/22/17 22:00 04/24/17 21:59 Ondansetron HCl (Zofran Inj) 4 mg Q6H PRN IV 04/22/17 21:15 05/22/17 21:14 Bisacodyl (Dulcolax Supp) 10 mg DAILY PRN IN 04/22/17 21:15 05/22/17 21:14 Potassium Chloride/Dextrose/ Sod Cl 1,000 ml @ 100 mls/hr Q10H IV 04/22/17 22:00 05/22/17 21:59 Lorazepam 0.5 mg/ Syringe 1 ml @ 1 mls/min Q4H PRN IV 04/22/17 21:30 05/22/17 21:29 04/22/17 21:51 1 MLS/MIN Ketorolac Tromethamine (Toradol Inj) 30 mg Q6H PRN IV 04/22/17 21:45 04/27/17 21:44 TRANSFER: to Gastric Bypass service at [facility]; Attending is Dr. Momo Castaneda DIAGNOSIS: SBO CONDITION: fair VITALS: per routine ACTIVITY: ad orly DIET: NPO INS AND OUTS: routine IV FLUIDS: KVO DRAINS: NGT to low intermittent suction MEDS: inpatient meds as above ALLERGIES: NKDA It was a pleasure taking care of you! Call if you have any questions or problems. You can reach a [facility] [address] hospitalist on duty at [facility] 24 hours a day by calling [phone]. Take care of yourself. Lakshmi Carrillo, [facility] [address] Hospitalist Current Hospital Diet Patient's current hospital diet: NPO Discharge Diet Recommended Diet: N/A Procedures Procedures Performed: NGT-placement confirmed via KUB Pending Studies Studies pending at discharge: no Medical Emergencies . Who to Call and When: Medical Emergencies: If at any time you feel your situation is an emergency, please call 911 immediately. . Non-Emergent Contact Non-Emergency issues call your: Primary Care Provider . . "Provider Documentation" section prepared by Lakshmi Carrillo. . VTE Core Measure Inpt VTE Proph given/why not?: SCD's, Treatment not indicated
--- NOTE | 2017-04-22 23:16 | Discharge Summary ---
Discharge Summary Date of Service Apr 22, 2017. Discharge Summary Admission Date: Apr 22, 2017 at 20:30 Discharge Date: Apr 23, 2017 Discharge Disposition: Acute care facility Principal Diagnosis: SBO Procedures: NGT placement after multiple failed attempts-confirmed by KUB Vaccinations: None. Consultations: General Surgery-Dr. Henrry Larry Pending Studies/Follow-Up: see instructions below. Medication Reconciliation Discontinued Medications: Buspirone Hcl (Buspirone Hcl) 30 Mg Tab 30 MG PO BID Gabapentin (Neurontin) 300 Mg Cap 300 MG PO TID, CAP Hydroxyzine Pamoate (Vistaril) 50 Mg Cap 50 MG PO QID PRN for Anxiety Naltrexone (Vivitrol) 380 Mg Inj 1 DOSE INH [id number] last dose 04/17 Polyethylene (Polyethylene Glycol 3350) 527 Gm Soln 1 DOSE PO DAILY PRN for Constipation, #527 Sennosides (Senna Lax) 8.6 Mg Tab 1 TAB PO BID PRN for Constipation, #60 Sertraline HCl (Sertraline HCl) 50 Mg Tab 75 MG PO DAILY Sumatriptan Succinate (Imitrex) 100 Mg Tab 100 MG PO PRN UD, #12 Sumatriptan Succinate (Sumatriptan Succinate) 6 Mg/0.5 Ml Inj 6 MG SQ UD PRN for Migraine Trazodone HCl (Trazodone HCl) 100 Mg Tab 200 MG PO HS PRN for Sleep Admission Information HPI (per Admitting provider): 32 yo F presents with worsening abdominal pain since this morning and has had a long history of intolerance to PO. She states that she can only tolerate liquids including her protein shake and that is what she has been subsisting on. She has a h/o sleeve gastrectomy in October [address] Brantley at [facility]. She then developed worsening pain tolerance and in August 2016 was read[address] [facility] where a diagnostic laparotomy was performed resulting in a conversation of her sleeve gastrectomy to a gastric bypass. She also had placement of a G-tube temporarily, and a cholecystectomy. Since that time she has been continuing to lose weight and not tolerating solids at all. She has not established care with anyone else since then and refuses to return to [facility] at this point. Dr Larry from General Surgery saw her and recommends transfer to a tertiary care center where she can be better managed with her history. And NGT was difficult to place in the ER and was attempted again on the floor and was successful. She is a recovering alcoholic who is taking Vivitrol shots (naltrexone) receiving her last shot on 04/17 with a 5-10 day half-life. None of the narcotics she has received tonight have worked to help manage her pain as a result. Physical Exam (per Admitting): General Appearance: WD/WN, + moderate distress Head: normocephalic, atraumatic, + pertinent finding (bloody nose after recent failed NGT attempt) Eyes: normal inspection, PERRL, sclerae normal ENT: hearing grossly normal, pharynx normal Neck: supple, trachea midline Respiratory/Chest: lungs clear, normal breath sounds, no respiratory distress, no accessory muscle use Cardiovascular: regular rate, rhythm, no edema, no gallop, no JVD, no murmur , normal peripheral pulses Abdomen/GI: normal bowel sounds, soft, + tenderness (LUQ/LLQ), + guarding Back: normal inspection Extremities/Musculoskelatal: normal inspection, normal range of motion Neurologic/Psych: waistline joiner lockstitch II-XII nml as tested, no motor/sensory deficits, alert , normal mood/affect, oriented x 3 Skin: normal color, warm/dry, no rash Hospital Course 32 yo F presents with worsening abdominal pain since this morning and has had a long history of intolerance to PO. She states that she can only tolerate liquids including her protein shake and that is what she has been subsisting on. She has a h/o sleeve gastrectomy in October [address] Brantley at [facility]. She then developed worsening pain tolerance and in August 2016 was readmitted [address] [facility] where a diagnostic laparotomy was performed resulting in a conversation of her sleeve gastrectomy to a gastric bypass. She also had placement of a G-tube temporarily, and a cholecystectomy. Since that time she has been continuing to lose weight and not tolerating solids at all. She has not established care with anyone else since then and refuses to return to [facility] at this point. Dr Larry from General Surgery saw her and recommends transfer to a tertiary care center where she can be better managed with her history. And NGT was difficult to place in the ER and was attempted again on the floor and was successful. She is a recovering alcoholic who is taking Vivitrol shots (naltrexone) receiving her last shot on 04/17 with a 5-10 day half-life. None of the narcotics she has received tonight have worked to help manage her pain as a result. Total time spent on discharge = 60 minutes This includes examination of the patient, discharge planning, medication reconciliation, and communication with other providers. Discharge Instructions [facility] [address] [place] [address] Discharge Medical Patient Name: Marina Ny Unit Number: [id number] Date of : 1985 Patient Status: Admitted Inpatient Attending Doctor: Shahid Wong M.D. DI: Medical v4 Discharge Instructions Date of Service Apr 22, 2017. Admission Reason for Admission: Small Bowel Obstruction Discharge Discharge Diagnosis / Problem: SBO Discharge Goals Goal(s): Therapeutic intervention Activity Recommendations Activity Limitations: per Instructions/Follow-up section . Instructions / Follow-Up Instructions / Follow-Up Current Inpatient Medications Medications (Trade) Dose Ordered Sig/Paulette Route Start Time Stop Time Status Last Admin Dose Admin Ioversol (Optiray 320) 125 ml UD PRN IV 04/22/17 18:30 04/26/17 18:29 Acetaminophen 650 mg/Empty Bag 65 ml @ 260 mls/hr Q6H IV 04/22/17 22:00 04/24/17 21:59 Ondansetron HCl (Zofran Inj) 4 mg Q6H PRN IV 04/22/17 21:15 05/22/17 21:14 Bisacodyl (Dulcolax Supp) 10 mg DAILY PRN OK 04/22/17 21:15 05/22/17 21:14 Potassium Chloride/Dextrose/ Sod Cl 1,000 ml @ 100 mls/hr Q10H IV 04/22/17 22:00 05/22/17 21:59 Lorazepam 0.5 mg/ Syringe 1 ml @ 1 mls/min Q4H PRN IV 04/22/17 21:30 05/22/17 21:29 04/22/17 21:51 1 MLS/MIN Ketorolac Tromethamine (Toradol Inj) 30 mg Q6H PRN IV 04/22/17 21:45 04/27/17 21:44 TRANSFER: to Gastric Bypass service at [facility]; Attending is Dr. Momo Castaneda DIAGNOSIS: SBO CONDITION: fair VITALS: per routine ACTIVITY: ad orly DIET: NPO INS AND OUTS: routine IV FLUIDS: KVO DRAINS: NGT to low intermittent suction MEDS: inpatient meds as above ALLERGIES: NKDA It was a pleasure taking care of you! Call if you have any questions or problems. [facility] 24 hours a day by calling [phone]. Take care of yourself. Lakshmi Carrillo DO [facility] Hospitalist Current Hospital Diet Patient's current hospital diet: NPO Discharge Diet Recommended Diet: N/A Procedures Procedures Performed: NGT-placement confirmed via KUB Pending Studies Studies pending at discharge: no Medical Emergencies . Who to Call and When: Medical Emergencies: If at any time you feel your situation is an emergency, please call 911 immediately. . Non-Emergent Contact Non-Emergency issues call your: Primary Care Provider . . "Provider Documentation" section prepared by Lakshmi Carrillo. . VTE Core Measure Inpt VTE Proph given/why not?: SCD's, Treatment not indicated Additional Copies To Isaiah Jones M.D.
[2017-04-22 23:28] VITALS: O2SAT 96
[2017-04-22] MEDS: D5NSS + 20MEQ KCL 1,000 ML IV SCH (23:29)
[2017-04-22] MEDS: ACETAMINOPHEN IV 650 MG in EMPTY BAG 0 ML IV SCH (23:29)
[2017-04-22] MEDS: KETOROLAC TROMETHAMINE 30 MG/ML VIAL IV PRN (23:29)
[2017-04-23] MEDS ORDERED: LORAZEPAM 2 MG/ML 1 ML VIAL IV ONE (00:18)
[2017-04-23] MEDS ORDERED: LORAZEPAM INJ 0.25 MG in SYRINGE 0.125 ML IV ONE (00:45)
[2017-04-23] MEDS: ACETAMINOPHEN IV 650 MG in EMPTY BAG 0 ML IV SCH ×2 (03:52→09:43)
[2017-04-23] MEDS: KETOROLAC TROMETHAMINE 30 MG/ML VIAL IV PRN ×2 (05:56→12:10)
[2017-04-23 07:08] VITALS: BP 93/59; PULSE 62; TEMP 36.9; O2SAT 94
[2017-04-23] MEDS: D5NSS + 20MEQ KCL 1,000 ML IV SCH (08:45)
--- NOTE | 2017-04-23 11:38 | Progress Note ---
Medicine Progress Note Date & Time of Visit: Apr 23, 2017 at 11:38 . Subjective Persistent abdominal pain and nausea, but better since NGT placed. Not passing any flatus or stool. Occasional cough. No fever. No SOB. . Objective Last 8 Hrs Date Time Temp Pulse Resp B/P (MAP) Pulse Ox O2 Delivery O2 Flow Rate FiO2 04/23/17 07:15 Room Air 04/23/17 07:08 36.9 62 16 93/59 (70) 94 Room Air Physical Exam: General- no acute distress ENT- NGT Lungs- clear Heart- RRR Abdomen- quiet bowel sounds, soft, moderate diffuse tenderness without rebound Extremities- no pretibial edema or calf tenderness Neuro- alert . Laboratory Results: Last 24 Hours Test 04/22/17 18:30 04/22/17 18:55 White Blood Count 7.15 K/uL Red Blood Count 4.85 M/uL Hemoglobin 14.9 g/dL Hematocrit 42.7 % Mean Corpuscular Volume 88.0 fL Mean Corpuscular Hemoglobin 30.7 pg Mean Corpuscular Hemoglobin Concent 34.9 g/dl Platelet Count 247 K/uL Mean Platelet Volume 10.2 fL Neutrophils (%) (Auto) 52.4 % Lymphocytes (%) (Auto) 42.7 % Monocytes (%) (Auto) 3.6 % Eosinophils (%) (Auto) 0.8 % Basophils (%) (Auto) 0.4 % Neutrophils # (Auto) 3.74 K/uL Lymphocytes # (Auto) 3.05 K/uL Monocytes # (Auto) 0.26 K/uL Eosinophils # (Auto) 0.06 K/uL Basophils # (Auto) 0.03 K/uL RDW Standard Deviation 39.5 fL RDW Coefficient of Variation 12.2 % Immature Granulocyte % (Auto) 0.1 % Immature Granulocyte # (Auto) 0.01 K/uL Sodium Level 133 mmol/L Potassium Level 3.7 mmol/L Chloride Level 101 mmol/L Carbon Dioxide Level 29 mmol/L Anion Gap 3.0 mmol/L Blood Urea Nitrogen 17 mg/dl Creatinine 0.91 mg/dl Est Creatinine Clear Calc Drug Dose 74.4 ml/min Estimated GFR () 97.4 Estimated GFR (Non- 84.1 BUN/Creatinine Ratio 18.7 Random Glucose 87 mg/dl Calcium Level 9.4 mg/dl Total Bilirubin 0.2 mg/dl Aspartate Amino Transf (AST/SGOT) 42 U/L Alanine Aminotransferase (ALT/SGPT) 83 U/L Alkaline Phosphatase 102 U/L Total Protein 8.1 gm/dl Albumin 4.4 gm/dl Globulin 3.7 gm/dl Albumin/Globulin Ratio 1.2 Lipase 207 U/L Lactic Acid Level 1.2 mmol/L Assessment & Plan SMALL BOWEL OBSTRUCTION Continue NGT, IV fluids. VTE PROPHYLAXIS SCD's. DISPOSITION Arrangements being made for transfer to [facility] for further evaluation and management. Family Medicine follow-up with Dr. Jones. . Consultants: General Surgery-Dr. Henrry Larry Procedures: NGT placement after multiple failed attempts-confirmed by [facility] Vaccinations: None. Current Inpatient Medications: Current Inpatient Medications Medications (Trade) Dose Ordered Sig/Paulette Route Start Time Stop Time Status Last Admin Dose Admin Ioversol (Optiray 320) 125 ml UD PRN IV 04/22/17 18:30 04/26/17 18:29 Acetaminophen 650 mg/Empty Bag 65 ml @ 260 mls/hr Q6H IV 04/22/17 22:00 04/24/17 21:59 04/23/17 09:43 260 MLS/HR Ondansetron HCl (Zofran Inj) 4 mg Q6H PRN IV 04/22/17 21:15 05/22/17 21:14 Bisacodyl (Dulcolax Supp) 10 mg DAILY PRN LA 04/22/17 21:15 05/22/17 21:14 Potassium Chloride/Dextrose/ Sod Cl 1,000 ml @ 100 mls/hr Q10H IV 04/22/17 22:00 05/22/17 21:59 04/23/17 08:45 100 MLS/HR Lorazepam 0.5 mg/ Syringe 1 ml @ 1 mls/min Q4H PRN IV 04/22/17 21:30 05/22/17 21:29 04/22/17 21:51 1 MLS/MIN Ketorolac Tromethamine (Toradol Inj) 30 mg Q6H PRN IV 04/22/17 21:45 04/27/17 21:44 04/23/17 05:56 30 MG
[2017-04-23 12:15] VITALS: BP 93/59; PULSE 62; TEMP 36.9; O2SAT 94
== END 2017-04-23 13:26 | disposition short-term general hospital (02) | DRG 389 ==
LOC: C.EDB 16:22 → C.MSN 20:30 → ENRESERV 20:47
PROVIDERS: ADMIT Hospitalist; ATTEND Hospitalist
DX: K56.69 Other intestinal obstruction (principal); E46 Unspecified protein-calorie malnutrition; E78.5 Hyperlipidemia, unspecified; F32.9 Major depressive disorder, single episode, unspecified; F17.200 Nicotine dependence, unspecified, uncomplicated; F10.10 Alcohol abuse, uncomplicated; Z82.49 Family history of ischemic heart disease and other diseases of the circulatory system

== ENCOUNTER 2017-05-24 21:24 | Emergency (ER) | payer OTHER ==
[~2017-05-24] VITALS: Ht 172.7 cm; Wt 54.5 kg
[2017-05-24 21:27] VITALS: TEMP 37.1; Ht 172.7 cm; Wt 54.5 kg
[2017-05-24] MEDS ORDERED: KETOROLAC TROMETHAMINE 30 MG/ML VIAL IV STA (21:33)
[2017-05-24] MEDS ORDERED: ONDANSETRON INJ 2 MG/ML 2 ML VIAL IV STA (21:33)
[2017-05-24] MEDS ORDERED: LORAZEPAM 2 MG/ML 1 ML VIAL IV STA ×2 (21:57→22:56)
[2017-05-24 22:00] LABS: HEMATOCRIT 34.5 % (37-47); HEMOGLOBIN 11.9 g/dL (12.0-16.0); MEAN CELL VOLUME 88.5 fL (80-100); MEAN CORPUSCULAR HEMOGLOBIN 30.5 pg (25-34); MEAN CORPUSCULAR HGB CONC 34.5 g/dl (32-36); MEAN PLATELET VOLUME 9.8 fL (7.4-10.4); PLATELET COUNT 182 K/uL (130-400); RED CELL DISTRIBUTION WIDTH CV 13.1 % (11.5-14.5); RED CELL DISTRIBUTION WIDTH SD 42.5 fL (36.4-46.3); WHITE BLOOD COUNT 5.71 K/uL (4.8-10.8)
[2017-05-24] MEDS ORDERED: GABA-113 PO (22:14)
[2017-05-24] MEDS ORDERED: SENN8.6T25 PO (22:14)
[2017-05-24] MEDS ORDERED: OMEP20TA PO (22:14)
[2017-05-24] MEDS ORDERED: TRAZ100T29 PO (22:14)
[2017-05-24] MEDS ORDERED: HYDR50CA2 PO (22:14)
[2017-05-24] MEDS ORDERED: MRLP17X PO (22:14)
[2017-05-24] MEDS ORDERED: NALT380I INJ (22:14)
[2017-05-24] MEDS ORDERED: BUSP15TA70 PO (22:14)
[2017-05-24] MEDS ORDERED: SERT25TA PO (22:14)
[2017-05-24 22:18] LABS: ALBUMIN 3.9 gm/dl (3.4-5.0); ALT/SGPT 52 U/L (12-78); BLOOD UREA NITROGEN 13 mg/dl (7-18); CALCIUM 8.6 mg/dl (8.5-10.1); CARBON DIOXIDE 23 mmol/L (21-32); CREATININE 0.85 mg/dl (0.60-1.20); GLUCOSE 132 mg/dl (70-99); LIPASE 179 U/L (73-393); POTASSIUM 3.1 mmol/L (3.5-5.1); SODIUM 140 mmol/L (136-145)
[2017-05-24 22:20] VITALS: O2SAT 96
[2017-05-24 22:21] LABS: ALKALINE PHOSPHATASE 87 U/L (45-117); AST/SGOT 25 U/L (15-37); BASO % 0.7 %; BASO ABS # 0.04 K/uL (0-0.2); EOS % 2.5 %; EOS ABS # 0.14 K/uL (0-0.5); IG# 0.01 K/uL (0.00-0.02); LYMPH ABS # 3.14 K/uL (1.2-3.4); MONO % 4.6 %; MONO ABS # 0.26 K/uL (0.11-0.59); NEUT ABS # 2.12 K/uL (1.4-6.5); TOTAL PROTEIN 7.1 gm/dl (6.4-8.2)
[2017-05-24] MEDS ORDERED: SODIUM CHLORIDE 0.9% 1000ML 2,000 ML IV STA (22:33)
[2017-05-24] MEDS ORDERED: POTASSIUM CHLORIDE 20 MEQ/15 ML UDC PO STA (22:44)
--- NOTE | 2017-05-24 22:59 | DIAGNOSTIC IMAGING REPORT ---
PA CHEST RADIOGRAPH AND UPRIGHT AND SUPINE AP RADIOGRAPHS OF THE ABDOMEN CLINICAL HISTORY: Abdominal pain. History of small bowel obstruction. COMPARISON STUDY: Chest radiograph and CT of the abdomen and pelvis April 22, 2017. FINDINGS: Lung volumes are normal. No pneumothorax or pleural effusion is noted. There is no evidence of pulmonary edema. No consolidation is identified. Cardiomediastinal silhouette is normal. There is no free air. There is no evidence for a bowel obstruction. Intrauterine device is noted. Pelvic calcifications reflect phleboliths. Surgical clips and staple lines are noted. IMPRESSION: 1. No free air or evidence of bowel obstruction. 2. No acute cardiopulmonary findings. Electronically signed by: Gaston Silveira M.D. 05/24/2017 10:57 PM Dictated Date/Time: 05/24/2017 10:56 PM
[2017-05-24] MEDS ORDERED: OPTIRAY 320 IV PRN (23:00)
--- NOTE | 2017-05-24 23:57 | EMERGENCY ROOM VISIT NOTE ---
History First contact with patient: 21:29 Chief Complaint: CONSTIPATION Stated Complaint: BOWEL OBSTRUCTION-CANNOT PASS GAS OR STOOLS,PAIN History of Present Illness The patient is a 32 year old female who presents to the Emergency Room with complaints of nausea and abdominal pain for the past few days steadily getting worse as a history of bowel obstructions symptoms feel similar. Patient had multiple normal surgeries. She had a bowel obstruction last month and required surgery done in [place]. She is not sure exactly what procedures were done. She describes the pain as cramping, ranging in severity 8 out of 10 to left lower quadrant. Nothing makes it better or worse. Patient increased her laxatives and is only having liquid watery fecal discharge. Patient denies chest pain, dyspnea, fever, chills, back pain, urinary symptoms. She's had multiple abdominal surgeries. Patient can only tolerate liquid. She has been like this for over 2 years since her gastric sleeve surgery who then underwent gastric bypass. Review of Systems See HPI for pertinent positives & negatives. A total of 10 systems reviewed and were otherwise negative. Past Medical/Surgical History Medical Problems: (1) Alcohol abuse (2) Asthma, mild persistent (3) Depression (4) Dyslipidemia (5) Nausea and vomiting (6) SBO (small bowel obstruction) (7) Urethra, diverticulum (8) Vomiting Surgical Problems: (1) H/O arthroscopy of left knee (2) H/O wisdom tooth extraction (3) History of orthopedic surgery (4) History of sleeve gastrectomy (5) History of tonsillectomy and adenoidectomy (6) S/P foot surgery, left (7) S/P tonsillectomy and adenoidectomy (8) [place] teeth extracted Bowel obstruction Family History Heart disease Hypertension Social History Smoking Status: Current Every Day Smoker Alcohol Use: none Drug Use: none Marital Status: single Housing Status: lives with family Occupation Status: employed Current/Historical Medications Scheduled Buspirone Hcl (Buspar), 30 MG PO BID Gabapentin (Neurontin), 300 MG PO TID Hydroxyzine Pamoate (Vistaril), 50 MG PO QID Naltrexone (Vivitrol), 380 MG INJ [id number] Omeprazole (Omeprazole), 20 MG PO DAILY Polyethylene (Miralax), 1 DOSE PO DAILY Sennosides (Senna Laxative), 8.6 MG PO PRN Sertraline (Zoloft), 75 MG PO DAILY Trazodone Hcl (Trazodone), 200 MG PO prn Physical Exam Vital Signs Date Time Temp Pulse Resp B/P (MAP) Pulse Ox O2 Delivery O2 Flow Rate FiO2 05/24/17 23:15 64 18 97/61 100 Room Air 05/24/17 22:25 67 05/24/17 22:22 66 18 102/56 99 Room Air 05/24/17 22:20 96 Room Air 05/24/17 21:27 37.1 92 18 112/68 95 Room Air Physical Exam VITALS: Vitals are noted on the nurse's note and reviewed by myself. Vital signs stable. GENERAL: White female, in no acute distress, nondiaphoretic, well-developed well -nourished. SKIN: The skin was without rashes, erythema, edema, or bruising. There is no tenting of the skin. Capillary reflex less than 2 seconds. HEAD: Normocephalic atraumatic. EARS: External auditory canals clear, tympanic membranes pearly gonzalez without erythema or effusion bilaterally. EYES: Pupils equal round and reactive to light and accommodation. Conjunctivae without injection, sclerae without icterus. Extraocular movements intact. NOSE: Patent, turbinates without inflammation or discharge. MOUTH: Mucous membranes moist. Pharynx without erythema or exudate. Uvula midline. Airway patent. Tongue does not deviate. NECK: Supple without nuchal rigidity. No lymphadenopathy. No thyromegaly. Cervical spine is nontender. No JVD. HEART: Regular rate and rhythm without murmurs gallops or rubs. LUNGS: Clear to auscultation bilaterally without wheezes, rales or rhonchi. No dullness to percussion. No retractions or accessory muscle use. ABDOMEN: Positive bowel sounds x 4. Normal tympanic percussion. Soft, tender to palpation left lower quadrant with multiple incisional scars intact, no CVA tenderness, without masses or organomegaly. Mancia sign negative. No guarding or rebound tenderness. MUSCULOSKELETAL: No muscle atrophy, erythema, or edema noted. NEURO: Patient was alert and oriented to person place and time. Normal sensation to light and sharp touch. No focal neurological deficits. Medical Decision & Procedures Laboratory Results 05/24/17 21:48 Red Blood Count 3.90, Mean Corpuscular Volume 88.5, Mean Corpuscular Hemoglobin 30.5, Mean Corpuscular Hemoglobin Concent 34.5, Mean Platelet Volume 9.8, Neutrophils (%) (Auto) 37.0, Lymphocytes (%) (Auto) 55.0, Monocytes (%) (Auto) 4.6, Eosinophils (%) (Auto) 2.5, Basophils (%) (Auto) 0.7, Neutrophils # (Auto) 2.12, Lymphocytes # (Auto) 3.14, Monocytes # (Auto) 0.26, Eosinophils # (Auto) 0.14, Basophils # (Auto) 0.04 05/24/17 21:48 Test 05/24/17 21:48 05/24/17 22:00 White Blood Count 5.71 K/uL (4.8-10.8) Red Blood Count 3.90 M/uL (4.2-5.4) Hemoglobin 11.9 g/dL (12.0-16.0) Hematocrit 34.5 % (37-47) Mean Corpuscular Volume 88.5 fL (80-100) Mean Corpuscular Hemoglobin 30.5 pg (25-34) Mean Corpuscular Hemoglobin Concent 34.5 g/dl (32-36) Platelet Count 182 K/uL (130-400) Mean Platelet Volume 9.8 fL (7.4-10.4) Neutrophils (%) (Auto) 37.0 % Lymphocytes (%) (Auto) 55.0 % Monocytes (%) (Auto) 4.6 % Eosinophils (%) (Auto) 2.5 % Basophils (%) (Auto) 0.7 % Neutrophils # (Auto) 2.12 K/uL (1.4-6.5) Lymphocytes # (Auto) 3.14 K/uL (1.2-3.4) Monocytes # (Auto) 0.26 K/uL (0.11-0.59) Eosinophils # (Auto) 0.14 K/uL (0-0.5) Basophils # (Auto) 0.04 K/uL (0-0.2) RDW Standard Deviation 42.5 fL (36.4-46.3) RDW Coefficient of Variation 13.1 % (11.5-14.5) Immature Granulocyte % (Auto) 0.2 % Immature Granulocyte # (Auto) 0.01 K/uL (0.00-0.02) Anion Gap 8.0 mmol/L (3-11) Est Creatinine Clear Calc Drug Dose 82.5 ml/min Estimated GFR () 105.8 Estimated GFR (Non- 91.3 BUN/Creatinine Ratio 14.7 (10-20) Calcium Level 8.6 mg/dl (8.5-10.1) Total Bilirubin 0.3 mg/dl (0.2-1) Direct Bilirubin < 0.1 mg/dl (0-0.2) Aspartate Amino Transf (AST/SGOT) 25 U/L (15-37) Alanine Aminotransferase (ALT/SGPT) 52 U/L (12-78) Alkaline Phosphatase 87 U/L (45-117) Total Protein 7.1 gm/dl (6.4-8.2) Albumin 3.9 gm/dl (3.4-5.0) Lipase 179 U/L (73-393) Human Chorionic Gonadotropin, Qual NEG (NEG) Urine Color DK YELLOW Urine Appearance TURBID (CLEAR) Urine pH 5.5 (4.5-7.5) Urine Specific [place] 1.030 (1.000-1.030) Urine Protein 1+ (NEG) Urine Glucose (UA) NEG (NEG) Urine Ketones TRACE (NEG) Urine Occult Blood 3+ (NEG) Urine Nitrite NEG (NEG) Urine Bilirubin NEG (NEG) Urine Urobilinogen NEG (NEG) Urine Leukocyte Esterase TRACE (NEG) Urine WBC (Auto) 5-10 /hpf (0-5) Urine RBC (Auto) 5-10 /hpf (0-4) Urine Hyaline Casts (Auto) 0 /lpf (0-5) Urine Epithelial Cells (Auto) >30 /lpf (0-5) Urine Bacteria (Auto) 2+ (NEG) Urine Crystals CALCIUM OXALATE (NONE Urine Pathogenic Casts /lpf (0) Urine Mucus PRESENT (NONE PRSENT) Medications Administered Medications (Trade) Dose Ordered Sig/Paulette Route Start Time Stop Time Status Last Admin Dose Admin Ondansetron HCl (Zofran Inj) 4 mg NOW STAT IV 05/24/17 21:33 05/24/17 21:36 DC 05/24/17 21:50 4 MG Ketorolac Tromethamine (Toradol Inj) 30 mg NOW STAT IV 05/24/17 21:33 05/24/17 21:36 DC 05/24/17 21:51 30 MG Lorazepam (Ativan Inj) 1 mg NOW STAT IV 05/24/17 21:57 05/24/17 21:58 DC 05/24/17 22:17 1 MG Sodium Chloride 2,000 ml @ 999 mls/hr Q2H1M STAT IV 05/24/17 22:33 05/25/17 00:33 05/24/17 22:49 999 MLS/HR Potassium Chloride (Laina Ciel Elix) 40 meq NOW STAT PO 05/24/17 22:44 05/24/17 22:45 DC 05/24/17 23:09 40 MEQ Lorazepam (Ativan Inj) 1 mg NOW STAT IV 05/24/17 22:56 05/24/17 22:57 DC 05/24/17 23:09 1 MG ED Course Prior records/ancillary studies reviewed. Triage Nursing notes reviewed. Additional history obtained from family. The patient's history was concerning for abdominal pain. Differential diagnosis: Etiologies such as appendicitis, diverticulitis, PUD, biliary pathology, UTI, pancreatitis, obstruction, mesenteric ischemia, aortic pathology, infections, inflammatory bowel disease, renal colic, as well as others were entertained. Physical examination findings: As above. ER treatment provided: Toradol, Zofran, Ativan On reassessment the patient felt better. Diagnostics interpreted by me: The labs revealed mild anemia, hypokalemia and this was replaced orally. Urinalysis seems consistent with contamination; sent for culture Imaging studies: [~ rep ct add3]] PA CHEST RADIOGRAPH AND UPRIGHT AND SUPINE AP RADIOGRAPHS OF THE ABDOMEN CLINICAL HISTORY: Abdominal pain. History of small bowel obstruction. COMPARISON STUDY: Chest radiograph and CT of the abdomen and pelvis April 22, 2017. FINDINGS: Lung volumes are normal. No pneumothorax or pleural effusion is noted. There is no evidence of pulmonary edema. No consolidation is identified. Cardiomediastinal silhouette is normal. There is no free air. There is no evidence for a bowel obstruction. Intrauterine device is noted. Pelvic calcifications reflect phleboliths. Surgical clips and staple lines are noted. IMPRESSION: 1. No free air or evidence of bowel obstruction. 2. No acute cardiopulmonary findings. Electronically signed by: Gaston Silveira M.D. CT ABDOMEN & PELVIS: Comparison 04/22/17. Again noted are postsurgical changes with cholecystectomy and gastric bypass. There is no evidence for bowel obstruction on the current examination. There is pelvic free fluid. There is no evidence for fecal impaction and portions of the left-sided colon, particularly the rectosigmoid are poorly distended limiting evaluation for wall thickening. There is fluid in the colon. Questionable wall thickening of the distal colon may be related under distention. Correlate for distal colitis. Pelvic free fluid. Limited by paucity of mesenteric fat. What is believed to represent portions of normal air-filled appendix seen extending anteriorly from the cecum in the pelvis, example images 349 through 318 series 3. Cholecystectomy, IUD and other unchanged findings. Radiologist: Mk Ralph M.D. I obtain the patient's records from [place] and patient had laparoscopic revision gastric bypass, upper GI endoscopy with dilation, lysis of adhesions, closure Yang space defect, takedown of previous gastrostomy tube site, and bilateral tap block. Patient was transferred from our facility to [place] for surgery evaluation. She has the above surgeries done on April 23. She was discharged a few days later. She had follow-up on May 17 and has been doing well until the past few days. Exam and history seem consistent with abdominal pain that could be related to her excessive laxative use. Patient did not have acute abdomen on exam. She states the only thing that would help her pain is Ativan. Patient has appointment next week with her surgeon in [place]. She is advised to keep this. She did not have acute abdomen on exam. She is well-appearing. Urinalysis seems consistent with contamination. No leukocytosis. No bowel obstruction on CT. She is advised to follow-up family care in a few days or here in the ER sooner for abdominal pain, fevers, vomiting, worsening signs or symptoms or as needed. By the evaluation outlined above emergent etiologies such as appendicitis, diverticulitis, PUD, biliary pathology, UTI, pancreatitis, obstruction, mesenteric ischemia, aortic pathology, infections, inflammatory bowel disease, renal colic, as well as others were deemed relatively unlikely. The pt informed about the findings as listed above. All questions were answered and pleased with the treatment. Return instructions were outlined and the patient was discharged in stable condition. Referral: The patient was referred back to their primary care physician for follow-up in 2 to 3 days for a recheck of the current condition. case reviewed with my Attending. Medical Decision As above Medication Reconcilliation Current Medication List: was personally reviewed by me Blood Pressure Screening Patient's blood pressure: Normal blood pressure Impression Primary Impression: Abdominal pain Additional Impressions: Dehydration Hypokalemia Anemia Departure Information Referrals Isaiah Jones M.D. (PCP) Patient Instructions My [facility] Problem Qualifiers Primary Impression: Abdominal pain Abdominal location: left lower quadrant Qualified Codes: R10.32 - Left lower quadrant pain
[2017-05-25] MEDS ORDERED: ATIVAN 1MG HOMEPACK PO ONE
[2017-05-25 00:43] VITALS: BP 103/65; PULSE 80; O2SAT 96
[2017-05-25] MEDS ORDERED: ONDANSETRON HOME PACK 4MG OD TAB PO ONE (00:45)
--- NOTE | 2017-05-25 06:32 | DIAGNOSTIC IMAGING REPORT ---
CT ABD/PELVIS IV CONTRAST ONLY CLINICAL HISTORY: severe lower abd pain COMPARISON STUDY: 04/22/2017 TECHNIQUE: Following the IV administration of 94 mL of Optiray-320, CT scan of the abdomen and pelvis was performed from the lung bases to the proximal femurs. Images are reviewed in the axial, sagittal, and coronal planes. IV contrast was administered without complication. A dose lowering technique was utilized adhering to the principles of ALARA. CT DOSE: 297.70 mGy.cm FINDINGS: Lower chest: The heart is normal in size and configuration, without pericardial effusion. The lung bases and pleural spaces are clear. Liver: There is a stable hypodense lesion within the medial segment left lobe of the liver abutting the falciform ligament. This remains unchanged, and is likely benign and possibly representing focal fat. Gallbladder: Surgically absent Spleen: Normal in size and attenuation. Pancreas: Unremarkable. Adrenal glands: Unremarkable. Kidneys: There is symmetric renal cortical enhancement. The kidneys are normal in size without hydronephrosis. Bowel: There are postsurgical changes of a gastric bypass and Michelle-en-Y anastomosis. There are no transition zones indicate bowel obstruction. Evaluation of the bowel is limited given the lack of orally administered contrast and the paucity of intra-abdominal fat. No definite acute inflammatory changes are visualized. There are air-fluid levels present within the colon. Peritoneum: There is a small amount of free pelvic fluid likely physiologic. Vasculature: The abdominal aorta is normal in course and caliber. Adenopathy: None. Pelvic viscera: There is an indwelling IUD. No pathologic adnexal masses are visualized. Skeletal structures: No destructive osseous lesions are seen. IMPRESSION: 1. Postsurgical changes of a gastric bypass and cholecystectomy 2. No evidence of bowel obstruction. No evidence of free air 3. Small amount of fluid within the colon. 4. No evidence of acute diverticulitis or acute appendicitis. Electronically signed by: Amador Tavera M.D. 05/25/2017 6:31 AM Dictated Date/Time: 05/25/2017 6:26 AM
== END 2017-05-25 00:45 | disposition home or self-care (01) ==
LOC: C.EDB 21:26 → C.EDC 05-25 00:45
DX: R10.32 Left lower quadrant pain (principal); E86.0 Dehydration; E87.6 Hypokalemia; D64.9 Anemia, unspecified; J45.30 Mild persistent asthma, uncomplicated; Z82.49 Family history of ischemic heart disease and other diseases of the circulatory system; F17.210 Nicotine dependence, cigarettes, uncomplicated; Z79.899 Other long term (current) drug therapy

== ENCOUNTER 2017-05-29 17:38 | Emergency (ER) | payer OTHER ==
[~2017-05-29] VITALS: Ht 172.7 cm; Wt 58.1 kg
[~2017-05-29 17:38] MED LIST changes: +GABA-113 PO; -IUD'IUD PV; +MRLP17X PO; +NALT380I INJ; +OMEP20TA PO; -SENN1TAB80 PO; +SENN8.6T25 PO; +SERT25TA PO; -SUMA6KIT3 SQ; +TRAZ100T29 PO
[2017-05-29 17:49] VITALS: Ht 172.7 cm; Wt 58.1 kg
[2017-05-29] MEDS ORDERED: SODIUM CHLORIDE 0.9% 500ML 500 ML IV STA ×2 (18:52→22:47)
--- NOTE | 2017-05-29 19:09 | EMERGENCY ROOM VISIT NOTE ---
History Report prepared by Piotr: So Aguayo Under the Supervision of: Dr. Luanne Pérez M.D. First contact with patient: 18:52 Chief Complaint: REFERRED BY DOCTOR Stated Complaint: REF BY DR,BLOATING,PAIN,FULL,AFTER ENDOSCOPY T-1 History of Present Illness The patient is a 32 year old female who presents to the Emergency Room with complaints of a referral today. The patient reports that she had a small bowel obstruction in April and that since then she has had surgeries every 2 weeks to widen her intestines. She also reports a history of a sleeve gastrectomy. The patient reports that her abdomen has become increasingly bloated throughout the day. She states that she cannot keep food down, and that it is also hard to keep liquids down. Source of History: patient Onset: today Position: other (global) Quality: other (referral) Timing: constant Associated Symptoms: + abdominal pain (bloating in abdomen ) Review of Systems See HPI for pertinent positives & negatives. A total of 10 systems reviewed and were otherwise negative. Past Medical & Surgical Medical Problems: (1) Alcohol abuse (2) Asthma, mild persistent (3) Depression (4) Dyslipidemia (5) Nausea and vomiting (6) SBO (small bowel obstruction) (7) Urethra, diverticulum (8) Vomiting Surgical Problems: (1) H/O arthroscopy of left knee (2) H/O wisdom tooth extraction (3) History of orthopedic surgery (4) History of sleeve gastrectomy (5) History of tonsillectomy and adenoidectomy (6) S/P foot surgery, left (7) S/P tonsillectomy and adenoidectomy (8) [place] teeth extracted Family History Heart disease Hypertension Social History Smoking Status: Current Every Day Smoker Alcohol Use: none Drug Use: none Marital Status: single Housing Status: lives with family Occupation Status: employed Current/Historical Medications Scheduled Buspirone Hcl (Buspar), 30 MG PO BID Gabapentin (Neurontin), 300 MG PO TID Hydroxyzine Pamoate (Vistaril), 50 MG PO QID Naltrexone (Vivitrol), 380 MG INJ every 3 weeks Omeprazole (Omeprazole), 20 MG PO DAILY Polyethylene (Miralax), 17 GM PO DAILY Sennosides (Senna Laxative), 8.6 MG PO PRN Sertraline (Zoloft), 75 MG PO DAILY Scheduled PRN Trazodone Hcl (Trazodone), 200 MG PO HS PRN for Sleep Allergies Coded Allergies: No Known Allergies (Verified , `, 05/29/17) Physical Exam Vital Signs Date Time Temp Pulse Resp B/P (MAP) Pulse Ox O2 Delivery O2 Flow Rate FiO2 05/29/17 23:37 36.7 67 12 94/52 99 05/29/17 22:00 73 12 107/56 05/29/17 21:58 102/59 05/29/17 21:30 54 86/45 98 05/29/17 21:21 96/56 05/29/17 21:15 58 14 98 05/29/17 21:00 55 97 05/29/17 20:45 60 99 05/29/17 20:30 53 17 100 05/29/17 20:15 51 15 100 05/29/17 20:00 51 100 05/29/17 19:45 49 13 100 Room Air 05/29/17 19:38 47 05/29/17 19:29 97/56 05/29/17 17:49 36.7 83 20 102/66 100 Room Air Physical Exam Vital signs reviewed. General: Cachectic chronically ill-appearing female, in no significant distress. HEENT: No scleral icterus, PERRLA, neck supple. Atraumatic. Cardiovascular: Regular rate and rhythm, no extra sounds. Pulmonary: Clear to auscultation bilaterally, normal work of breathing. Abdomen: Soft, mild diffuse tenderness, no rebound or guarding, nondistended, positive bowel sounds. Musculoskeletal: Atraumatic, no peripheral edema. Neurologic: Patient awake alert and oriented x 3 Skin: Warm, dry, no rash Medical Decision & Procedures ER Provider Diagnostic Interpretation: Radiology results as stated below per my review and radiologist interpretation: CHEST ONE VIEW PORTABLE CLINICAL HISTORY: abd bloating, recent endoscopy PAIN COMPARISON STUDY: 05/24/2017 FINDINGS: The cardiac and mediastinal contours are normal. There is no evidence of focal pulmonary consolidation. There is no evidence of failure. No pleural effusions are visualized.[No free intraperitoneal air is visualized. IMPRESSION: No active disease in the chest. Electronically signed by: Amador Tavera M.D. 05/29/2017 7:28 PM Dictated Date/Time: 05/29/2017 7:27 PM Laboratory Results 05/29/17 19:12 Red Blood Count 3.48, Mean Corpuscular Volume 88.8, Mean Corpuscular Hemoglobin 30.5, Mean Corpuscular Hemoglobin Concent 34.3, Mean Platelet Volume 10.0, Neutrophils (%) (Auto) 40.8, Lymphocytes (%) (Auto) 52.1, Monocytes (%) (Auto) 5.4, Eosinophils (%) (Auto) 1.3, Basophils (%) (Auto) 0.4, Neutrophils # (Auto) 2.29, Lymphocytes # (Auto) 2.91, Monocytes # (Auto) 0.30, Eosinophils # (Auto) 0.07, Basophils # (Auto) 0.02 05/29/17 19:12 Test 05/29/17 19:12 05/29/17 19:30 White Blood Count 5.59 K/uL (4.8-10.8) Red Blood Count 3.48 M/uL (4.2-5.4) Hemoglobin 10.6 g/dL (12.0-16.0) Hematocrit 30.9 % (37-47) Mean Corpuscular Volume 88.8 fL (80-100) Mean Corpuscular Hemoglobin 30.5 pg (25-34) Mean Corpuscular Hemoglobin Concent 34.3 g/dl (32-36) Platelet Count 165 K/uL (130-400) Mean Platelet Volume 10.0 fL (7.4-10.4) Neutrophils (%) (Auto) 40.8 % Lymphocytes (%) (Auto) 52.1 % Monocytes (%) (Auto) 5.4 % Eosinophils (%) (Auto) 1.3 % Basophils (%) (Auto) 0.4 % Neutrophils # (Auto) 2.29 K/uL (1.4-6.5) Lymphocytes # (Auto) 2.91 K/uL (1.2-3.4) Monocytes # (Auto) 0.30 K/uL (0.11-0.59) Eosinophils # (Auto) 0.07 K/uL (0-0.5) Basophils # (Auto) 0.02 K/uL (0-0.2) RDW Standard Deviation 42.9 fL (36.4-46.3) RDW Coefficient of Variation 13.2 % (11.5-14.5) Immature Granulocyte % (Auto) 0.0 % Immature Granulocyte # (Auto) 0.00 K/uL (0.00-0.02) Anion Gap 3.0 mmol/L (3-11) Est Creatinine Clear Calc Drug Dose 106.8 ml/min Estimated GFR () 133.8 Estimated GFR (Non- 115.5 BUN/Creatinine Ratio 21.1 (10-20) Calcium Level 8.3 mg/dl (8.5-10.1) Magnesium Level 2.1 mg/dl (1.8-2.4) Total Bilirubin 0.2 mg/dl (0.2-1) Direct Bilirubin < 0.1 mg/dl (0-0.2) Aspartate Amino Transf (AST/SGOT) 87 U/L (15-37) Alanine Aminotransferase (ALT/SGPT) 101 U/L (12-78) Alkaline Phosphatase 75 U/L (45-117) Total Protein 6.1 gm/dl (6.4-8.2) Albumin 3.4 gm/dl (3.4-5.0) Lipase 376 U/L (73-393) Urine Color DK YELLOW Urine Appearance CLOUDY (CLEAR) Urine pH 5.5 (4.5-7.5) Urine Specific [place] 1.031 (1.000-1.030) Urine Protein TRACE (NEG) Urine Glucose (UA) NEG (NEG) Urine Ketones TRACE (NEG) Urine Occult Blood 3+ (NEG) Urine Nitrite NEG (NEG) Urine Bilirubin NEG (NEG) Urine Urobilinogen NEG (NEG) Urine Leukocyte Esterase TRACE (NEG) Urine WBC (Auto) 1-5 /hpf (0-5) Urine RBC (Auto) >30 /hpf (0-4) Urine Hyaline Casts (Auto) 5-10 /lpf (0-5) Urine Epithelial Cells (Auto) >30 /lpf (0-5) Urine Bacteria (Auto) 1+ (NEG) Urine Crystals CALCIUM OXALATE (NONE Urine Mucus PRESENT (NONE PRSENT) Urine Test NEG (NEG) Laboratory results per my review. Medications Administered Medications (Trade) Dose Ordered Sig/Paulette Route Start Time Stop Time Status Last Admin Dose Admin Sodium Chloride 500 ml @ 999 mls/hr Q31M STAT IV 05/29/17 18:52 05/29/17 19:22 DC 05/29/17 19:30 999 MLS/HR Lorazepam (Ativan Inj) 1 mg NOW STAT IV 05/29/17 20:57 05/29/17 20:58 DC 05/29/17 21:22 1 MG Sodium Chloride 500 ml @ 999 mls/hr Q31M STAT IV 05/29/17 22:47 05/29/17 23:17 DC 05/29/17 22:52 999 MLS/HR ED Course 1851: Ordered Sodium Chloride 500 ml @ 999 mls/hr IV. 1901: Past medical records reviewed. The patient was evaluated in room B4B. A complete history and physical examination was performed. 2056: Ordered Ativan Inj 1 mg IV. 2246: Ordered Sodium Chloride 500 ml @ 999 mls/hr IV. 2299: Upon reevaluation, the patient appeared to have improvement of her symptoms. I discussed findings with her. She verbalized agreement of the treatment plan. She was discharged home. Medical Decision The patient is a 32 year old female who presents to the ED with complaints of doctor referral. Differentials include small bowel obstruction, perforated viscus, UTI, ileus, , dehydration, and gastritis. This patient was evaluated and appeared to be in no significant distress. Patient's physical exam is significant for diffuse abdominal tenderness however there is no distention or peritoneal sign. Patient's laboratory work is fairly unrevealing. She did receive 500 mL of IV normal saline solution. Patient requested IV Ativan for which of low blood pressure however she states since her gastric sleeve surgery her blood pressures have been running very low. She was given a second bolus of 500 mL of normal saline solution. Abdominal x-ray and chest x-ray are negative for evidence of free air or obstruction. Patient was tolerating by mouth fluids on reevaluation. She was advised to maintain a bland diet and call gastroenterology tomorrow for reevaluation. She will return to the ER for worsening of symptoms or any medical concerns. Medication Reconcilliation Current Medication List: was personally reviewed by me Blood Pressure Screening Patient's blood pressure: Low blood pressure Impression Primary Impression: Abdominal bloating Additional Impression: History of bariatric surgery Scribe Attestation The scribe's documentation has been prepared under my direction and personally reviewed by me in its entirety. I confirm that the note above accurately reflects all work, treatment, procedures, and medical decision making performed by me. Departure Information Dispostion Home / Self-Care Referrals Isaiah Jones M.D. (PCP) Forms HOME CARE DOCUMENTATION FORM, IMPORTANT VISIT INFORMATION, WORK / SCHOOL INSTRUCTIONS Patient Instructions My [facility] Additional Instructions Diagnosis: Abdominal bloating, history of bariatric surgery Please drink plenty of clear fluids. Continue your medications as prescribed. Contact gastroenterology tomorrow to arrange follow-up within the next several days. Return to the emergency department immediately for worsening of symptoms, fever or any medical concerns. Problem Qualifiers
--- NOTE | 2017-05-29 19:29 | DIAGNOSTIC IMAGING REPORT ---
CHEST ONE VIEW PORTABLE CLINICAL HISTORY: abd bloating, recent endoscopy PAIN COMPARISON STUDY: 05/24/2017 FINDINGS: The cardiac and mediastinal contours are normal. There is no evidence of focal pulmonary consolidation. There is no evidence of failure. No pleural effusions are visualized.[No free intraperitoneal air is visualized. IMPRESSION: No active disease in the chest. Electronically signed by: Amador Tavera M.D. 05/29/2017 7:28 PM Dictated Date/Time: 05/29/2017 7:27 PM
[2017-05-29 19:34] LABS: HEMATOCRIT 30.9 % (37-47); HEMOGLOBIN 10.6 g/dL (12.0-16.0); MEAN CELL VOLUME 88.8 fL (80-100); MEAN CORPUSCULAR HEMOGLOBIN 30.5 pg (25-34); MEAN CORPUSCULAR HGB CONC 34.3 g/dl (32-36); PLATELET COUNT 165 K/uL (130-400); RED CELL DISTRIBUTION WIDTH CV 13.2 % (11.5-14.5); RED CELL DISTRIBUTION WIDTH SD 42.9 fL (36.4-46.3); WHITE BLOOD COUNT 5.59 K/uL (4.8-10.8)
[2017-05-29 19:53] LABS: ALBUMIN 3.4 gm/dl (3.4-5.0); ALT/SGPT 101 U/L (12-78); AST/SGOT 87 U/L (15-37); BLOOD UREA NITROGEN 15 mg/dl (7-18); CALCIUM 8.3 mg/dl (8.5-10.1); CARBON DIOXIDE 29 mmol/L (21-32); GLUCOSE 77 mg/dl (70-99); LIPASE 376 U/L (73-393); POTASSIUM 3.6 mmol/L (3.5-5.1); SODIUM 139 mmol/L (136-145)
[2017-05-29 19:56] LABS: ALKALINE PHOSPHATASE 75 U/L (45-117); TOTAL PROTEIN 6.1 gm/dl (6.4-8.2)
[2017-05-29 20:12] LABS: BASO % 0.4 %; BASO ABS # 0.02 K/uL (0-0.2); EOS % 1.3 %; EOS ABS # 0.07 K/uL (0-0.5); LYMPH % 52.1 %; LYMPH ABS # 2.91 K/uL (1.2-3.4); MONO % 5.4 %; NEUT % 40.8 %; NEUT ABS # 2.29 K/uL (1.4-6.5)
[2017-05-29] MEDS ORDERED: LORAZEPAM 2 MG/ML 1 ML VIAL IV STA (20:57)
--- NOTE | 2017-05-29 21:59 | DIAGNOSTIC IMAGING REPORT ---
KUB CLINICAL HISTORY: Abdominal bloating status post endoscopy. COMPARISON STUDY: CT of the abdomen and pelvis May 24, 2017. FINDINGS: Bowel anastomoses and surgical clips are noted. This study has decreased sensitivity for detection of free air given supine technique. Intrauterine device is in place. Pelvic calcifications represent phleboliths. The bowel gas pattern is within normal limits. IMPRESSION: 1. Normal bowel gas pattern. No evidence for a bowel obstruction. 2. Decreased sensitivity for detection of free air given supine technique but no evidence for free air on this study. Electronically signed by: Gaston Silveira M.D. 05/29/2017 9:57 PM Dictated Date/Time: 05/29/2017 9:56 PM
[2017-05-29 23:37] VITALS: BP 94/52; PULSE 67; TEMP 36.7; O2SAT 99
== END 2017-05-29 23:38 | disposition home or self-care (01) ==
LOC: C.EDB 17:40
DX: R14.0 Abdominal distension (gaseous) (principal); Z98.84 Bariatric surgery status; E78.5 Hyperlipidemia, unspecified; K58.9 Irritable bowel syndrome, unspecified; J45.30 Mild persistent asthma, uncomplicated; F17.200 Nicotine dependence, unspecified, uncomplicated; Z98.890 Other specified postprocedural states; Z79.899 Other long term (current) drug therapy; Z82.49 Family history of ischemic heart disease and other diseases of the circulatory system

== ENCOUNTER 2017-10-02 02:01 | Emergency (ER) | payer OTHER ==
[~2017-10-02] VITALS: Ht 172.7 cm; Wt 64.3 kg
[2017-10-02 02:05] VITALS: TEMP 36.8; Ht 172.7 cm; Wt 64.3 kg
[2017-10-02] MEDS ORDERED: LORAZEPAM 2 MG/ML 1 ML VIAL IV STA ×2 (02:24→03:21)
[2017-10-02] MEDS ORDERED: SODIUM CHLORIDE 0.9% 1000ML 1,000 ML IV STA (02:24)
[2017-10-02] MEDS ORDERED: MoRPHine SULFATE 10 MG/ML CARP/VIAL IV STA (02:24)
--- NOTE | 2017-10-02 02:25 | EMERGENCY ROOM VISIT NOTE ---
History Report prepared by Piotr: Giacomo Cao Under the Supervision of: Dr. Sridhar Anaya M.D. First contact with patient: 02:08 Chief Complaint: SHOULDER PAIN Stated Complaint: ALCOHOL, RT SHOULDER INJURY History of Present Illness The patient is a 32 year old female who presents to the Emergency Room with complaints of constant right shoulder pain beginning 45 minutes ago. The patient states she was drinking tonight and fell down a flight of stairs. She reports she has been sober for almost a year, and she has a history of alcoholism. The patient notes she had four shots of alcohol. She states she landed on her right shoulder when she fell. The patient reports she is having a hard time breathing, her right arm is tingling, and her right neck hurts from falling on it as well. She denies trying to hurt herself, abdominal pain, drug use, and taking pain medications daily. The patient notes she does not think she is at risk of hurting herself at home. She states she has a history of gastroparesis, and she is tired of living in pain. The patient reports her medications have not been balanced for a long time now. The patient's fiance states she was trying to hurt herself tonight. He reports she was sober and drank a vial of what he thought was bleach. The fiance notes she then ran into the bathroom and locked herself in there. He states she left and then went next door to get alcohol. The fiance reports he drives for [employer] in his spare time and took the patient with him tonight because he did not think she was safe at home. He notes as they were driving down the road, the patient tried to get out of the car and scraped her foot. HPI limited secondary to the patient's alcohol intoxication and agitation. Source of History: patient, spouse/significant other History Limited By: intoxication, other (agitation) Onset: 45 minutes ago Position: shoulder (right) Timing: constant Associated Symptoms: + neck pain, No abdominal pain Note: Associated symptoms: right arm tingling Review of Systems ROS limited secondary to the patient's alcohol intoxication and agitation. Past Medical & Surgical Medical Problems: (1) Alcohol abuse (2) Asthma, mild persistent (3) Depression (4) Dyslipidemia (5) Nausea and vomiting (6) SBO (small bowel obstruction) (7) Urethra, diverticulum (8) Vomiting Surgical Problems: (1) H/O arthroscopy of left knee (2) H/O wisdom tooth extraction (3) History of orthopedic surgery (4) History of sleeve gastrectomy (5) History of tonsillectomy and adenoidectomy (6) S/P foot surgery, left (7) S/P tonsillectomy and adenoidectomy (8) [place] teeth extracted Family History Heart disease Hypertension Social History Smoking Status: Current Every Day Smoker Alcohol Use: none Drug Use: none Marital Status: single Housing Status: lives with family Occupation Status: employed Current/Historical Medications Scheduled Buspirone Hcl (Buspar), 15 MG PO BID Gabapentin (Neurontin), 300 MG PO TID Naltrexone (Vivitrol), 380 MG INJ every 3 weeks Sertraline Hcl (Zoloft), 75 MG PO DAILY Scheduled PRN Hydroxyzine Pamoate (Vistaril), 50 MG PO QID PRN for SEVERE ANXIETY Oxycodone/Acetaminophen 5MG/325MG (Percocet 5MG/325MG), 1-2 TAB PO Q4H PRN for Pain Trazodone Hcl (Trazodone), 200 MG PO HS PRN for Sleep Allergies Coded Allergies: No Known Allergies (Verified , `, 05/29/17) Physical Exam Vital Signs Date Time Temp Pulse Resp B/P (MAP) Pulse Ox O2 Delivery O2 Flow Rate FiO2 10/02/17 14:10 76 20 112/76 98 10/02/17 12:01 72 20 112/58 98 Room Air 10/02/17 10:16 72 18 112/72 96 Room Air 10/02/17 09:02 68 18 110/65 96 Room Air 10/02/17 06:25 71 18 109/73 96 Room Air 10/02/17 05:05 74 95 10/02/17 05:00 100/60 10/02/17 04:41 83 27 96 10/02/17 04:36 78 14 95 Room Air 10/02/17 04:31 112/73 10/02/17 04:06 80 14 95 10/02/17 04:01 112/65 10/02/17 03:36 85 17 97 10/02/17 03:31 107/70 10/02/17 03:01 114/66 10/02/17 02:59 69 15 100 10/02/17 02:59 75 100 Room Air 10/02/17 02:54 109/66 10/02/17 02:53 66 10/02/17 02:52 107/66 10/02/17 02:31 65 19 99 Room Air 10/02/17 02:05 36.8 63 18 111/74 100 Room Air Physical Exam GENERAL: Patient is heavily intoxicated. Smells of alcohol. Well appearing and in no acute distress. Moderately belligerent and periodically screaming. HEAD: No evidence of Trauma. AT/NC EYES: Injected conjunctiva. Normal EOM. Pupils equal/reactive. ENT: Mucous membranes moist, no nasal congestion. NECK: No step-offs, no adenopathy, no meningismus, trachea is midline. LUNGS: No dyspnea. Clear to auscultation and equal bilaterally. No wheeze, no rhonchi. HEART: Regular rate and rhythm. No murmurs, rubs, gallops appreciated. GI: Abdomen soft, nontender, no peritonitis. Bowel sounds positive. No masses appreciated. BACK: TTP over paraspinal muscles upper thoracic spine. No midline tenderness, no stepoffs, no CVA tenderness EXTREMITIES: Pain in right shoulder blade with ROM right shoulder. Normal motion all extremities, no cyanosis, no edema. Abrasion to the top of third digit of the right toe. NEUROLOGIC: Intoxicated. Alert, oriented. No acute motor or sensory deficits, no focal weakness, cranial nerves grossly intact. SKIN: No jaundice, no diaphoresis. redness right scapula and upper thoracic paraspinal muscles. PSYCHIATRIC: Evasive about answering psychiatric questions. Unable to deny if she was suicidal. Medical Decision & Procedures ER Provider Diagnostic Interpretation: [facility] results and stated below per my review and radiologist interpretation: CT HEAD: No acute intracranial hemorrhage, skull fracture, or other acute intracranial abnormality. Coarse calcifications along the anterior falx, nonspecific. Radiologist: Nikki Bauer MD CT C SPINE: No acute fracture or traumatic subluxation of the cervical spine. Radiologist: Nikki Bauer MD CT CHEST With Contrast: Comparison: CT dated 03/11/2016. Mild T2-T5 superior endplate compression fracture deformities which are new compared to 03/11/2016 and likely acute setting of trauma. Correlate clinically for symptoms at this location. Otherwise stable endplate changes in the thoracic spine. Remainder of osseous structures appear unremarkable. No pulmonary contusion, pleural effusion or pneumothorax. No mediastinal hematoma or pneumomediastinum. No evidence of traumatic aortic injury. Postsurgical changes of stomach and cholecystectomy. Radiologist: Nikki Bauer MD Laboratory Results 10/02/17 02:38 Red Blood Count 4.31, Mean Corpuscular Volume 89.3, Mean Corpuscular Hemoglobin 31.1, Mean Corpuscular Hemoglobin Concent 34.8, Mean Platelet Volume 9.9, Neutrophils (%) (Auto) 58.9, Lymphocytes (%) (Auto) 35.3, Monocytes (%) (Auto) 4.4, Eosinophils (%) (Auto) 0.7, Basophils (%) (Auto) 0.2, Neutrophils # (Auto) 5.68, Lymphocytes # (Auto) 3.41, Monocytes # (Auto) 0.42, Eosinophils # (Auto) 0.07, Basophils # (Auto) 0.02 10/02/17 02:38 Test 10/02/17 02:24 10/02/17 02:38 10/02/17 02:41 10/02/17 02:45 Urine Test NEG (NEG) White Blood Count 9.65 K/uL (4.8-10.8) Red Blood Count 4.31 M/uL (4.2-5.4) Hemoglobin 13.4 g/dL (12.0-16.0) Hematocrit 38.5 % (37-47) Mean Corpuscular Volume 89.3 fL (80-100) Mean Corpuscular Hemoglobin 31.1 pg (25-34) Mean Corpuscular Hemoglobin Concent 34.8 g/dl (32-36) Platelet Count 222 K/uL (130-400) Mean Platelet Volume 9.9 fL (7.4-10.4) Neutrophils (%) (Auto) 58.9 % Lymphocytes (%) (Auto) 35.3 % Monocytes (%) (Auto) 4.4 % Eosinophils (%) (Auto) 0.7 % Basophils (%) (Auto) 0.2 % Neutrophils # (Auto) 5.68 K/uL (1.4-6.5) Lymphocytes # (Auto) 3.41 K/uL (1.2-3.4) Monocytes # (Auto) 0.42 K/uL (0.11-0.59) Eosinophils # (Auto) 0.07 K/uL (0-0.5) Basophils # (Auto) 0.02 K/uL (0-0.2) RDW Standard Deviation 41.3 fL (36.4-46.3) RDW Coefficient of Variation 12.7 % (11.5-14.5) Immature Granulocyte % (Auto) 0.5 % Immature Granulocyte # (Auto) 0.05 K/uL (0.00-0.02) Est Creatinine Clear Calc Drug Dose 94.5 ml/min Estimated GFR () 102.9 Estimated GFR (Non- 88.8 BUN/Creatinine Ratio 8.1 (10-20) Osmolality 349 mOsm/kg (280-300) Calcium Level 8.6 mg/dl (8.5-10.1) Total Bilirubin 0.3 mg/dl (0.2-1) Aspartate Amino Transf (AST/SGOT) 24 U/L (15-37) Alanine Aminotransferase (ALT/SGPT) 23 U/L (12-78) Alkaline Phosphatase 87 U/L (45-117) Total Protein 8.0 gm/dl (6.4-8.2) Albumin 4.5 gm/dl (3.4-5.0) Globulin 3.5 gm/dl (2.5-4.0) Albumin/Globulin Ratio 1.3 (0.9-2) Thyroid Stimulating Hormone (TSH) 7.800 uIu/ml (0.300-4.500) Salicylates Level < 1.7 mg/dl (2.8-20) Acetaminophen Level < 2 ug/ml (10-30) Ethyl Alcohol mg/dL 224.0 mg/dl (0-3) Bedside Hemoglobin 13.9 g/dl (12.0-16.0) Bedside Hematocrit 41 % (37-47) Bedside Sodium 143 mEq/L (135-144) Bedside Potassium 3.0 mEq/L (3.3-5.0) Bedside Chloride 106 mEq/L (101-112) Bedside Total CO2 24 mEq/l (24-31) Anion Gap 16.0 mmol/L (16-25) Bedside Blood Urea Nitrogen 6 mg/dl (7-18) Bedside Creatinine 1.1 mg/dl (0.6-1.3) Bedside Glucose (other) 87 mg/dl (70-99) Bedside Ionized Calcium ([place]) 1.15 mmol/l (1.12-1.32) Urine Color YELLOW Urine Appearance CLEAR (CLEAR) Urine pH 5.5 (4.5-7.5) Urine Specific [place] 1.013 (1.000-1.030) Urine Protein NEG (NEG) Urine Glucose (UA) NEG (NEG) Urine Ketones NEG (NEG) Urine Occult Blood NEG (NEG) Urine Nitrite NEG (NEG) Urine Bilirubin NEG (NEG) Urine Urobilinogen NEG (NEG) Urine Leukocyte Esterase NEG (NEG) Urine WBC (Auto) 1-5 /hpf (0-5) Urine RBC (Auto) 0-4 /hpf (0-4) Urine Hyaline Casts (Auto) 0 /lpf (0-5) Urine Epithelial Cells (Auto) 5-10 /lpf (0-5) Urine Bacteria (Auto) NEG (NEG) Urine Opiates Screen NEG (NEG) Urine Methadone, Qualitative NEG (NEG) Urine Barbiturates NEG (NEG) Urine Phencyclidine (PCP) Level NEG (NEG) Ur Amphetamine/Methamphetamine NEG (NEG) MDMA (Ecstasy) Screen NEG (NEG) Urine Benzodiazepines Screen NEG (NEG) Urine Cocaine Metabolite NEG (NEG) Urine Marijuana (THC) POS (NEG) Laboratory results as reviewed by me. Medications Administered Medications (Trade) Dose Ordered Sig/Paulette Route Start Time Stop Time Status Last Admin Dose Admin Morphine Sulfate (MoRPHine SULFATE INJ) 6 mg NOW STAT IV 10/02/17 02:24 10/02/17 02:27 DC 10/02/17 02:56 6 MG Lorazepam (Ativan Inj) 1 mg NOW STAT IV 10/02/17 02:24 10/02/17 02:27 DC 10/02/17 02:54 1 MG Sodium Chloride 1,000 ml @ 999 mls/hr Q1H1M STAT IV 10/02/17 02:24 10/02/17 03:24 DC 10/02/17 02:50 999 MLS/HR Lorazepam (Ativan Inj) 1 mg NOW STAT IV 10/02/17 03:21 10/02/17 03:22 DC 10/02/17 03:42 1 MG Oxycodone/ Acetaminophen (Percocet 5-325mg Tab) 2 tab NOW STAT PO 10/02/17 04:42 10/02/17 04:44 DC 10/02/17 05:18 2 TAB Potassium Chloride (Klor-Con M10) 40 meq STK-MED ONCE .ROUTE 10/02/17 05:05 10/02/17 05:06 DC 10/02/17 05:16 40 MEQ Nicotine (Nicoderm Cq 21MG Patch) 1 patch NOW STAT TD 10/02/17 05:37 10/02/17 05:41 DC 10/02/17 05:56 1 PATCH Nicotine Polacrilex (Nicorette 2MG Gum) 2 piece PRN PRN MT 10/02/17 05:45 10/02/17 15:45 DC 10/02/17 06:04 2 PIECE Buspirone HCl (Buspar Tab) 15 mg BID STAT PO 10/02/17 05:37 10/02/17 05:41 DC 10/02/17 05:59 15 MG Gabapentin (Neurontin Cap) 300 mg TID STAT PO 10/02/17 05:37 10/02/17 05:41 DC 10/02/17 06:01 300 MG Hydroxyzine HCl (Vistaril Tab) 50 mg NOW STAT PO 10/02/17 05:37 10/02/17 05:41 DC 10/02/17 05:58 50 MG Sertraline HCl (Zoloft Tab) 75 mg QAM STAT PO 10/02/17 05:37 10/02/17 05:41 DC 10/02/17 06:01 75 MG Trazodone HCl (Desyrel Tab) 100 mg NOW ONCE PO 10/02/17 05:45 10/02/17 05:46 DC 10/02/17 06:03 100 MG Ibuprofen (Motrin Tab) 600 mg NOW STAT PO 10/02/17 13:31 10/02/17 13:33 DC 10/02/17 13:31 600 MG Oxycodone/ Acetaminophen (Percocet 5-325mg Tab) 2 tab NOW ONCE PO 10/02/17 13:45 10/02/17 13:46 DC 10/02/17 13:45 2 TAB ECG Per My Interpretation Indication: back/shoulder pain Rate (beats per minute): 71 Rhythm: normal sinus Findings: no acute ischemic change, no ectopy, other (QTc of 469) ED Course 0214: The patient was evaluated in room B12B. A complete history and physical exam was performed. 0432: I discussed the patient's case with Dr. Allen, Orthopedic Spine Surgeon. He feels further treatment is not needed except pain management when necessary. 0436: I discussed my consult with the patient. She states she stays away from NSAIDs for pain control because of her gastric bypass. She agreed to try Percocet. I told her she must sober up and be evaluated by psychiatric case management because she is too intoxicated to be evaluated at this very moment. 0512: The patient itched her IV out. 0531: The patient is attempting to get dressed and leave. She is demanding her morning medication and more sedatives. She is not short of breath. She is able to talk without difficulty and stating she only had one drink of alcohol now. 0730: The patient was signed out to Dr. Rebolledo at the change of shift. Medical Decision Differential: Mood Disorder, Overdose, Infectious, Electrolyte Abnormality, Cardiac, Hepatic, Endocrine, Toxicologic, Neurologic, amongst other pathologies entertained. 32 yr old female arrives acutely agitated and intoxicated with significant other initially complaining of right shoulder pain s/p fall though she is so agitated and rambling that it is tough to get proper story (seems combination of intoxication and anxiety from being here). Significant other notes that patient was having what sounds like acute manic episode throwing chairs and stating she was going to kill self. He notes she hurt her back after falling while trying to throw a chair. She did not fall down stairs per sig other. Per sig other she tried jumping out of car as well (abrasions of toes to prove this). She is evasive and not willing to answer mental health questions adequately at this time. She is so all over the place that I had no option other than to do CT imaging of head/neck/chest. She has no abdo pain nor evidence trauma thus held off on this. She has no neuro deficits. Her symptoms seem almost more acute anxiety/psychosis/gab with intoxication than actual pain related, however I felt imaging reasonable given exam findings of TTP over right upper thoracic paraspinal areas and shoulder blade. Findings: Mild T2-T5 endplate compression fractures: Likely source of pain. No further intervention/evaluation required per Spine Surgery. Pain control PRN. HypoK: Pt states chronic. Given klorcon. Osmo: Elevated. Measures out normal after factoring alcohol level. At this time significant other feels patient is at risk of harming herself as outpatient. He makes clear this started long before she started drinking this evening though admits they were fighting at the time. He has filled out 302 petition on patient and she will need to be in department and evaluated once sober. Patient with long list of demands/requests which were granted as possible, with hope of calming her down. She was waxing and waning with her anxiety throughout. Much seemed secondary to her intoxicated state along with acute anxiety from just being in ED. Vitals look good. She self removed IV and then proceeded to get dressed. We discussed need to get changed back in to hospital gown. I ordered her her morning medications. Given half dose Trazodone as missed her's last night but I'd prefer not to be oversedating patient. There is report patient may have drank a very small amount bleach earlier in day and that made her vomit it up though drinking this was not witnessed. No evidence of esophageal injury nor pain and she is tolerating secretions without issue. Furthermore there is no reported abnormality of this area on CT Chest. I do not feel that she requires inpatient evaluation/ treatment for household bleach ingestion. Patient states she has been sober for quite some time and just relapsed last night (previous inpatient [place]). It is unclear how truthful she is being but I do not feel she is exhibiting evidence of withdrawal during my care of her. She has clearly had extensive psychiatric treatment both at this facility and others though as to the nature of tonight's events will have to see once she camelia up in the morning. Signed out to Dr Rebolledo with plan of patient to sober up and then be evaluated by Mental Health. Head Trauma GCS Score: 15 Medication Reconcilliation Current Medication List: was personally reviewed by me Blood Pressure Screening Patient's blood pressure: Normal blood pressure Blood pressure disposition: Did not require urgent referral Consults Time Called: [phone] Consulting Physician: Dr. Allen, Orthopedic Spine Surgeon Returned Call: [phone] I discussed the patient's case with Dr. Allen, Orthopedic Spine Surgeon. He feels further treatment is not needed except pain management when necessary. Impression Primary Impression: Suicidal ideation Additional Impressions: Hypokalemia Depression Alcohol intoxication Thoracic compression fracture Scribe Attestation The scribe's documentation has been prepared under my direction and personally reviewed by me in its entirety. I confirm that the note above accurately reflects all work, treatment, procedures, and medical decision making performed by me. Departure Information Dispostion Still a Patient Prescriptions Oxycodone/Acetaminophen 5MG/325MG (PERCOCET 5MG/325MG) Tab 1-2 TAB PO Q4H Y for Pain, #14 TAB Prov: Adonay Rebolledo MD 10/02/17 Referrals Isaiah Jones M.D. (PCP) Patient Instructions [facility] Problem Qualifiers
[2017-10-02] MEDS ORDERED: OPTIRAY 320 IV PRN (02:30)
[2017-10-02 02:49] LABS: BASO % 0.2 %; BASO ABS # 0.02 K/uL (0-0.2); EOS % 0.7 %; EOS ABS # 0.07 K/uL (0-0.5); HEMATOCRIT 38.5 % (37-47); HEMOGLOBIN 13.4 g/dL (12.0-16.0); IG# 0.05 K/uL (0.00-0.02); LYMPH % 35.3 %; LYMPH ABS # 3.41 K/uL (1.2-3.4); MEAN CELL VOLUME 89.3 fL (80-100); MEAN CORPUSCULAR HEMOGLOBIN 31.1 pg (25-34); MEAN CORPUSCULAR HGB CONC 34.8 g/dl (32-36); MEAN PLATELET VOLUME 9.9 fL (7.4-10.4); MONO % 4.4 %; MONO ABS # 0.42 K/uL (0.11-0.59); NEUT % 58.9 %; NEUT ABS # 5.68 K/uL (1.4-6.5); PLATELET COUNT 222 K/uL (130-400); RED CELL DISTRIBUTION WIDTH CV 12.7 % (11.5-14.5); RED CELL DISTRIBUTION WIDTH SD 41.3 fL (36.4-46.3); WHITE BLOOD COUNT 9.65 K/uL (4.8-10.8)
[2017-10-02 02:56] LABS: ISTAT CREATININE 1.1 mg/dl (0.6-1.3); ISTAT IONIZED CALCIUM 1.15 mmol/l (1.12-1.32)
[2017-10-02] MEDS ORDERED: SERT1TAB71 PO (02:56)
[2017-10-02 03:07] LABS: ALBUMIN 4.5 gm/dl (3.4-5.0); CALCIUM 8.6 mg/dl (8.5-10.1); CREATININE 0.87 mg/dl (0.60-1.20)
[2017-10-02] MEDS ORDERED: OXYCODONE/ACETAMINOPHEN 5-325 TAB PO STA (04:42)
[2017-10-02] MEDS ORDERED: POTASSIUM CHLORIDE 20 MEQ TABCR PO STA (04:42)
[2017-10-02] MEDS ORDERED: POTASSIUM CHLORIDE 10 MEQ TABCR ONE (05:05)
[2017-10-02] MEDS ORDERED: hydrOXYzine HCL 25 MG TAB PO STA (05:37)
[2017-10-02] MEDS ORDERED: GABAPENTIN 300 MG CAP PO STA (05:37)
[2017-10-02] MEDS ORDERED: NICOTINE 21 MG/24 HR TDSY TD STA (05:37)
[2017-10-02] MEDS ORDERED: SERTRALINE HCL 50 MG TAB PO STA (05:37)
[2017-10-02] MEDS ORDERED: hydrOXYzine HCL 25 MG TAB PO PRN (05:45)
[2017-10-02] MEDS ORDERED: NICOTINE POLACRILEX 2 MG GUM MT PRN (05:45)
[2017-10-02] MEDS ORDERED: TRAZODONE HCL 50 MG TAB PO ONE (05:45)
--- NOTE | 2017-10-02 06:36 | DIAGNOSTIC IMAGING REPORT ---
CT HEAD WITHOUT CONTRAST (CT) CLINICAL HISTORY: Head pain status post trauma. Intoxication. COMPARISON STUDY: June 23, 2016 TECHNIQUE: Axial CT of the brain is performed from the vertex to the skull base. IV contrast was not administered for this examination. A dose lowering technique was utilized adhering to the principles of ALARA. CT DOSE: FINDINGS: No intra or extra-axial mass lesions are visualized. There is no CT evidence of acute cortical infarction. There is no evidence of midline shift. There is no acute hemorrhage. No calvarial fractures are visualized. There is a prominent anterior falx ossification. There is no evidence of pathologic ventricular dilatation. There is no evidence of acute sinusitis IMPRESSION: No acute intracranial findings Electronically signed by: Amador Tavera M.D. 10/02/2017 6:34 AM Dictated Date/Time: 10/02/2017 6:33 AM
--- NOTE | 2017-10-02 06:41 | DIAGNOSTIC IMAGING REPORT ---
CT OF THE CERVICAL SPINE CLINICAL HISTORY: Neck pain status post trauma COMPARISON STUDY: No previous studies for comparison. CT DOSE: TECHNIQUE: CT scan of the cervical spine was performed from the skull base to the thoracic inlet. Images are reviewed in the axial, sagittal, and coronal planes. IV contrast was not administered for this examination. A dose lowering technique was utilized adhering to the principles of ALARA. FINDINGS: No pneumothorax is visualized. There are minimal apical airspace opacities. The prevertebral soft tissues are normal. No fractures or subluxations are visualized. IMPRESSION: No evidence of acute fracture or traumatic subluxation. Electronically signed by: Amador Tavera M.D. 10/02/2017 6:40 AM Dictated Date/Time: 10/02/2017 6:37 AM
--- NOTE | 2017-10-02 07:12 | DIAGNOSTIC IMAGING REPORT ---
CT OF THE CHEST WITH IV CONTRAST CLINICAL HISTORY: Chest pain status post trauma COMPARISON STUDY: 03/11/2016 TECHNIQUE: Following the IV administration of 92 mL of Optiray-320, CT of the thorax was performed from the thoracic inlet to the lung bases. Images are reviewed in the axial, sagittal, and coronal planes. IV contrast was administered without complication. A dose lowering technique was utilized adhering to the principles of ALARA. CT DOSE: 1250.68 mGy.cm FINDINGS: Thyroid: Imaged portions of the thyroid gland are normal in appearance. Thoracic aorta: The thoracic aorta is normal in course and caliber, noting standard 3-vessel arch anatomy. No aneurysm or dissection is seen. Pulmonary vasculature: The pulmonary trunk is normal in caliber. There are no central filling defects identified to suggest pulmonary embolus. Note that this examination was not protocoled for the evaluation of pulmonary emboli. HEART: The heart is normal in size and configuration, without pericardial effusion. Lungs and pleural spaces: Minimal dependent apical opacities are likely atelectatic. There are minor basilar atelectatic changes. There are no pleural effusions. There is no pneumothorax. There is a 3 mm right lower lobe pulmonary nodule as visualized in image #[id number]. This remain stable. There is a 5 mm right lower lobe solid pulmonary nodule abutting the pleura as visualized in image #[id number]. This also remains stable. Mediastinum: There is no evidence of pathologic adenopathy. There is no mediastinal hematoma. Shirley: There is no nodes of pathologic hilar adenopathy Axilla: There is no evidence of pathologic axillary lymphadenopathy Upper abdomen: Postsurgical changes involve the stomach. There is a 31 mm hypodensity within the left lobe of the liver. This remain stable and likely represents focal fat Skeletal structures: There are minimal superior endplate T2, T3, T4, and T5 deformities. IMPRESSION: 1. Minimal superior endplate T2-T5 deformities, likely acute as they were not present in February 2016 2. Otherwise no evidence of acute intrathoracic injury. Electronically signed by: Amador Tavera M.D. 10/02/2017 7:11 AM Dictated Date/Time: 10/02/2017 7:04 AM
--- NOTE | 2017-10-02 07:33 | EMERGENCY ROOM VISIT NOTE ---
ED Visit Note First contact with patient: 06:49 Received patient in signout at change of shift. Patient is here under a 302 petition. The person filled out the 302 petition, the boyfriend came in to discuss the patient this afternoon. He felt that this was drunken rambling. He also admits that he never read the patient's note and does not feel it was a suicide note. Based on this I feel that the 302 petition is based on false premise. And I feel we cannot hold this patient here against her will. She is requesting pain medication for her shoulder and her neck. I will place her in a soft collar along with a sling and stressed the need to follow-up with orthopedics. The patient and the boyfriend was cautioned on their alcohol use. Strongly encouraged the patient follow-up with her primary care physician.`
[2017-10-02] MEDS ORDERED: IBUPROFEN 600 MG TAB PO STA (13:31)
[2017-10-02] MEDS ORDERED: OXYCODONE/ACETAMINOPHEN 5-325 TAB PO ONE (13:45)
[2017-10-02] MEDS ORDERED: OXYC-57 PO (14:04)
[2017-10-02 14:10] VITALS: BP 112/76; PULSE 76; O2SAT 98
[2017-10-02] MEDS ORDERED: TRAZODONE HCL 100 MG TAB PO SCH (21:00)
== END 2017-10-02 14:10 | disposition home or self-care (01) ==
LOC: C.EDB 02:02 → C.EDA 14:10
DX: R45.851 Suicidal ideations (principal); E87.6 Hypokalemia; F32.9 Major depressive disorder, single episode, unspecified; F10.129 Alcohol abuse with intoxication, unspecified; S22.000A Wedge compression fracture of unspecified thoracic vertebra, initial encounter for closed fracture; X50.1XXA Overexertion from prolonged static or awkward postures, initial encounter; J45.30 Mild persistent asthma, uncomplicated; E78.5 Hyperlipidemia, unspecified; F17.210 Nicotine dependence, cigarettes, uncomplicated; Z79.899 Other long term (current) drug therapy

== ENCOUNTER 2017-10-04 00:21 | Emergency (ER) | payer OTHER ==
[~2017-10-04] VITALS: Ht 172.7 cm; Wt 66.0 kg
[~2017-10-04 00:21] MED LIST changes: -MRLP17X PO; -OMEP20TA PO; +OXYC-57 PO; -SENN8.6T25 PO; +SERT1TAB71 PO; -SERT25TA PO
[2017-10-04 00:24] VITALS: TEMP 37.1; Ht 172.7 cm; Wt 66.0 kg
[2017-10-04] MEDS ORDERED: KETOROLAC TROMETHAMINE 60 MG/2 ML VIAL IM STA (00:41)
--- NOTE | 2017-10-04 00:45 | EMERGENCY ROOM VISIT NOTE ---
History Report prepared by Piotr: Elisha Barker Under the Supervision of: Dr. Kelly Morgan D.O. First contact with patient: 00:28 Chief Complaint: SHORTNESS OF BREATH Stated Complaint: THORACIC COMPRESSION FX,EXTREME PAIN,DIFF BREATHIN History of Present Illness The patient is a 32 year old female who presents to the Emergency Room with complaints of worsening back pain causing shortness of breath since yesterday. She was recently seen in the ED for a fall that caused compression fractures of T2-T5. She reports that she can move her neck, though it is very pain. Per spouse, the patient was throwing things around and when she went to throw something, she slipped on a rug and fell backwards onto her back onto a hardwood floor. The patient states that she was drunk at the time of her fall two nights ago. She has a history of bariatric surgery and gastropariesis. She reports a history of alcoholism, though states that she has only consumed alcohol twice in the past year. She denies any other history of fractures. She reports sleep loss secondary to pain. She has taken Tylenol and Oxycodone. She is currently wearing a soft cervical collar which she reports was given to her while she was seen in the ED. She also has a sling on her right shoulder. She is unsure if she actually suffered a right shoulder injury. Source of History: patient, spouse/significant other Onset: since yesterday Position: back Timing: worsening Modifying Factors (Worsening): breathing Review of Systems See HPI for pertinent positives & negatives. A total of 10 systems reviewed and were otherwise negative. Past Medical & Surgical Medical Problems: (1) Alcohol abuse (2) Asthma, mild persistent (3) Depression (4) Dyslipidemia (5) Nausea and vomiting (6) SBO (small bowel obstruction) (7) Urethra, diverticulum (8) Vomiting Surgical Problems: (1) H/O arthroscopy of left knee (2) H/O wisdom tooth extraction (3) History of orthopedic surgery (4) History of sleeve gastrectomy (5) History of tonsillectomy and adenoidectomy (6) S/P foot surgery, left (7) S/P tonsillectomy and adenoidectomy (8) [place] teeth extracted Family History Heart disease Hypertension Social History Smoking Status: Current Every Day Smoker Alcohol Use: none Drug Use: none Marital Status: single Housing Status: lives with family Occupation Status: employed Current/Historical Medications Scheduled Buspirone Hcl (Buspirone Hcl), 30 MG PO BID Cyanocobalamin (B-12 Compliance Injection), 1,000 MCG IM [id number] Docusate Sodium (Docusate Sodium), 100 MG PO BID Gabapentin (Neurontin), 300 MG PO TID Levonorgestrel (Iud) (Mirena), 20 MCG IU CONTINOUS Polyethylene Glycol 3350 (Miralax), 17 GM PO DAILY Sertraline Hcl (Zoloft), 75 MG PO DAILY Sumatriptan Succinate (Imitrex), 100 MG PO PRN Sumatriptan Succinate (Imitrex), 6 MG SQ PRN Scheduled PRN Hydroxyzine Pamoate (Vistaril), 50 MG PO QID PRN for SEVERE ANXIETY Senna (Senokot), 8.6 MG PO BID PRN for Constipation Trazodone Hcl (Trazodone), 200 MG PO HS PRN for Sleep Allergies Coded Allergies: No Known Allergies (Verified , `, 05/29/17) Physical Exam Vital Signs Date Time Temp Pulse Resp B/P (MAP) Pulse Ox O2 Delivery O2 Flow Rate FiO2 10/04/17 02:56 79 20 103/63 97 10/04/17 00:24 37.1 93 20 119/72 98 Room Air Physical Exam HEENT: Head - normocephalic and atraumatic Pupils are equal, round, and reactive to light. Extraocular eye muscles are intact, and sclera are anicteric. Nose - moist nasal mucosa without discharge. Mouth - moist buccal mucosa. Oropharynx is nonerythematous and there is no tonsillar exudate or edema noted. Neck: Supple; no JVD, nuchal rigidity, cervical lymphadenopathy. Chest: pain to palpation over right anterior chest wall Heart: Regular rate and rhythm. There is a normal S1 and S2 with no murmurs, clicks, or gallops appreciated. Lungs: Clear to auscultation bilaterally with no wheezes, rales, or rhonchi. Abdomen: Soft, completely nontender, nondistended, with good bowel sounds. There are no palpable pulsatile masses or hepatosplenomegaly. There is no guarding, rigidity, or rebound noted. Extremities: No evidence of cyanosis, clubbing, or edema. There are easily palpable peripheral pulses. decreased ROM in right shoulder. Pain to palpation over the right shoulder Skin: warm and dry with good turgor and no rashes. Medical Decision & Procedures ER Provider Diagnostic Interpretation: Radiology results as stated below per my review and interpretation: Chest XR: Two view: No obvious pneumothorax. No obvious rib fractures. Right shoulder XR: No shoulder separation. No dislocation. No clavicular fracture. Medications Administered Medications (Trade) Dose Ordered Sig/Paulette Route Start Time Stop Time Status Last Admin Dose Admin Ketorolac Tromethamine (Toradol Inj) 60 mg NOW STAT IM 10/04/17 00:41 10/04/17 00:42 DC 10/04/17 00:49 60 MG Procedure 0041: Ordered Toradol 60 mg IM ED Course 0032: Past medical records reviewed. The patient was evaluated in room A10. A complete history and physical exam was performed. 0041: Ordered Toradol 60 mg IM 0222: I reassessed the patient at this time. She is still having pain. I referred her back to her PCP until she can get into see pain management. I discussed the results and treatment plan with the patient. I answered all pertaining questions that she had. She expressed understanding and verbalized agreement. The patient will be discharged home. Medical Decision The patient is a 32 year old female who presents to the ED with back pain worsening with breathing. Differential diagnosis includes pneumothorax, pulmonary contusion, rib fractures, shoulder separation, shoulder strain, and pain secondary to thoracic compression fractures. This is a 32-year-old female patient presents to the emergency department with increasing shortness of breath, increased pain in her right shoulder and thoracic spine. The patient suffered a fall a couple days ago for which she was seen here in the emergency department. She was intoxicated at that time and reported that she fell on a flight of stairs. She now tells me that that is not true but that she slipped on a rug and fell onto her back on a hardwood floor. The patient is currently wearing a sling on her right arm and a soft cervical collar. She explains that she was diagnosed with thoracic compression fractures. She was prescribed Percocet to use for pain but states that she is still having moderate pain. The patient had a chest x-ray performed today to rule out the possibility of a pneumothorax. This was negative. X-ray of the right shoulder showed no evidence of acute shoulder separation or fracture. The patient was directed to continue using the prescribed Percocet and to follow -up with her PCP if there would be a delay getting into pain management. Medication Reconcilliation Current Medication List: was personally reviewed by me Blood Pressure Screening Patient's blood pressure: Normal blood pressure Impression Primary Impression: Thoracic back pain Additional Impression: Right shoulder pain Scribe Attestation The scribe's documentation has been prepared under my direction and personally reviewed by me in its entirety. I confirm that the note above accurately reflects all work, treatment, procedures, and medical decision making performed by me. Departure Information Dispostion Home / Self-Care Referrals No Doctor, Assigned (PCP) Forms HOME CARE DOCUMENTATION FORM, IMPORTANT VISIT INFORMATION Patient Instructions My [facility] Additional Instructions Rest. Use c-collar. Follow up with PCP today to discuss pain management until you can get an appointment Problem Qualifiers Primary Impression: Thoracic back pain Chronicity: acute Back pain laterality: midline Qualified Codes: M54.6 - Pain in thoracic spine Additional Impression: Right shoulder pain Chronicity: acute Qualified Codes: M25.511 - Pain in right shoulder
[2017-10-04] MEDS ORDERED: BUSP30TA2 PO (01:48)
[2017-10-04] MEDS ORDERED: DOCU1TAB6 PO (01:51)
[2017-10-04] MEDS ORDERED: LEVO1IUD2 IU (01:53)
[2017-10-04] MEDS ORDERED: POLY335019 PO (01:53)
[2017-10-04] MEDS ORDERED: SENN-61 PO (01:55)
[2017-10-04] MEDS ORDERED: SUMA100T16 PO (01:56)
[2017-10-04] MEDS ORDERED: SUMA6INJ SQ (01:59)
[2017-10-04] MEDS ORDERED: CYAN1KIT3 IM (02:01)
[2017-10-04 02:56] VITALS: BP 103/63; PULSE 79; O2SAT 97
--- NOTE | 2017-10-04 07:36 | DIAGNOSTIC IMAGING REPORT ---
RIGHT SHOULDER 3 VIEWS HISTORY: eval for shoulder separation COMPARISON: None. FINDINGS: There is no fracture or dislocation. Soft tissues are unremarkable. The clavicle and AC joint are well aligned. IMPRESSION: No fracture or dislocation within the right shoulder. Electronically signed by: Luis Felipe Golden M.D. 10/04/2017 7:35 AM Dictated Date/Time: 10/04/2017 7:33 AM
--- NOTE | 2017-10-04 07:47 | DIAGNOSTIC IMAGING REPORT ---
CHEST 2 VIEWS ROUTINE HISTORY: Fall. Right-sided chest pain. COMPARISON: Chest CT 10/02/2017. FINDINGS: The lungs are clear. Cardiac silhouette is normal in size. No pleural effusions. No pneumothorax. Upper abdominal surgical clips are again noted. IMPRESSION: No acute process. Electronically signed by: Luis Felipe Golden M.D. 10/04/2017 7:46 AM Dictated Date/Time: 10/04/2017 7:44 AM
== END 2017-10-04 02:57 | disposition home or self-care (01) ==
LOC: C.EDB 00:23 → C.EDA 02:57
DX: S22.020A Wedge compression fracture of second thoracic vertebra, initial encounter for closed fracture (principal); S22.030A Wedge compression fracture of third thoracic vertebra, initial encounter for closed fracture; S22.040A Wedge compression fracture of fourth thoracic vertebra, initial encounter for closed fracture; S22.050A Wedge compression fracture of T5-T6 vertebra, initial encounter for closed fracture; M25.511 Pain in right shoulder; W01.0XXA Fall on same level from slipping, tripping and stumbling without subsequent striking against object, initial encounter; R06.02 Shortness of breath; J45.909 Unspecified asthma, uncomplicated; F17.200 Nicotine dependence, unspecified, uncomplicated; Z86.59 Personal history of other mental and behavioral disorders; Z97.5 Presence of (intrauterine) contraceptive device; Z79.899 Other long term (current) drug therapy

== ENCOUNTER 2017-10-07 19:55 | Emergency (ER) | payer OTHER ==
[~2017-10-07] VITALS: Ht 172.7 cm; Wt 64.4 kg
[~2017-10-07 19:55] MED LIST changes: -BUSP15TA70 PO; +BUSP30TA2 PO; +CYAN1KIT3 IM; +DOCU1TAB6 PO; +LEVO1IUD2 IU; -NALT380I INJ; -OXYC-57 PO; +POLY335019 PO; +SENN-61 PO; +SUMA100T16 PO; +SUMA6INJ SQ
[2017-10-07 20:01] VITALS: TEMP 37.5; Ht 172.7 cm; Wt 64.4 kg
[2017-10-07] MEDS ORDERED: MoRPHine SULFATE 10 MG/ML CARP/VIAL IM STA (20:28)
[2017-10-07] MEDS ORDERED: CYCLOBENZAPRINE HCL 10 MG TAB PO STA (20:28)
[2017-10-07] MEDS ORDERED: KETOROLAC TROMETHAMINE 60 MG/2 ML VIAL IM ONE (20:30)
[2017-10-07] MEDS ORDERED: OXYC-57 PO (21:42)
--- NOTE | 2017-10-07 21:44 | EMERGENCY ROOM VISIT NOTE ---
History First contact with patient: 20:06 Chief Complaint: BACK PAIN Stated Complaint: FRACTURED BACK T2-T5.EXTREME PAIN,NAUSEA History of Present Illness The patient is a 32 year old female who presents to the Emergency Room with complaints of severe pain in her midthoracic spine area for the last week. The patient had an injury 1 week ago falling on her back. She was intoxicated at the time. She was seen in the emergency department last week, and told that she had compression fractures of T2-T5. The patient reports taking Tylenol with minimal relief of the pain. She has an appointment scheduled with her primary care physician tomorrow, he will refer her to pain management. The patient spoke with the orthopedic surgeon. She was told this was nonsurgical. She denies any new trauma. Any movement and lying flat make the pain worse. Review of Systems 6 system review negative. Please see pertinent positives in the history of present illness section. Past Medical/Surgical History Medical Problems: (1) Alcohol abuse (2) Asthma, mild persistent (3) Depression (4) Dyslipidemia (5) Nausea and vomiting (6) SBO (small bowel obstruction) (7) Urethra, diverticulum (8) Vomiting Surgical Problems: (1) H/O arthroscopy of left knee (2) H/O wisdom tooth extraction (3) History of orthopedic surgery (4) History of sleeve gastrectomy (5) History of tonsillectomy and adenoidectomy (6) S/P foot surgery, left (7) S/P tonsillectomy and adenoidectomy (8) [place] teeth extracted Family History Heart disease Hypertension Social History Smoking Status: Current Every Day Smoker Alcohol Use: none Drug Use: none Marital Status: single Housing Status: lives with family Occupation Status: employed Current/Historical Medications Scheduled Buspirone Hcl (Buspirone Hcl), 30 MG PO BID Cyanocobalamin (B-12 Compliance Injection), 1,000 MCG IM [id number] Cyclobenzaprine Hcl (Flexeril), 10 MG PO TID Docusate Sodium (Docusate Sodium), 100 MG PO BID Gabapentin (Neurontin), 300 MG PO TID Levonorgestrel (Iud) (Mirena), 20 MCG IU CONTINOUS Polyethylene Glycol 3350 (Miralax), 17 GM PO DAILY Sertraline Hcl (Zoloft), 75 MG PO DAILY Sumatriptan Succinate (Imitrex), 100 MG PO PRN Sumatriptan Succinate (Imitrex), 6 MG SQ PRN Scheduled PRN Hydroxyzine Pamoate (Vistaril), 50 MG PO QID PRN for SEVERE ANXIETY Oxycodone/Acetaminophen 5MG/325MG (Percocet 5MG/325MG), 1 TAB PO Q4H PRN for Pain Senna (Senokot), 8.6 MG PO BID PRN for Constipation Trazodone Hcl (Trazodone), 200 MG PO HS PRN for Sleep Physical Exam Vital Signs Date Time Temp Pulse Resp B/P (MAP) Pulse Ox O2 Delivery O2 Flow Rate FiO2 10/07/17 21:45 86 16 116/81 96 Room Air 10/07/17 20:01 37.5 81 16 114/78 100 Room Air Physical Exam VITALS: Vitals are noted on the nurse's note and reviewed by myself. Vital signs stable. GENERAL: 32-year-old female, moderately uncomfortable,, SKIN: The skin was without rashes, erythema, edema, or bruising. HEAD: Normocephalic atraumatic. Conjunctivae without injection, sclerae without icterus. Extraocular movements intact. NECK: Cervical spine is nontender. HEART: Regular rate and rhythm without murmurs gallops or rubs. LUNGS: Clear to auscultation bilaterally without wheezes, rales or rhonchi. No accessory muscle use. MUSCULOSKELETAL: Tenderness to palpation over the upper thoracic spinous processes. Mild tenderness to palpation in the paraspinous muscles bilaterally right greater than left in this area. No tenderness over the rest of the thorax. No tenderness over the lower spine. Bicep and tricep strength 5/5 bilaterally. Radial pulses +2. NEURO: Patient was alert and oriented to person place and time. Normal sensation to touch. No focal neurological deficits. Medical Decision & Procedures Medications Administered Medications (Trade) Dose Ordered Sig/Paulette Route Start Time Stop Time Status Last Admin Dose Admin Ketorolac Tromethamine (Toradol Inj) 60 mg ONE ONCE IM 10/07/17 20:30 10/07/17 20:31 DC 10/07/17 20:39 60 MG Morphine Sulfate (MoRPHine SULFATE INJ) 8 mg NOW STAT IM 10/07/17 20:28 5/21/18 20:29 DC 10/07/17 20:38 8 MG Cyclobenzaprine HCl (Flexeril Tab) 10 mg NOW STAT PO 10/07/17 20:28 10/07/17 20:29 DC 10/07/17 20:38 10 MG ED Course The patient was seen and examined She was medicated as noted above. Old records were reviewed The patient was reassessed and resting comfortably. The pain was much improved. The patient was given a home pack of Percocet Discharge instructions were reviewed, and she was discharged in good condition Medical Decision Differential diagnosis: Acute on chronic pain, drug-seeking behavior, fracture, subluxation This patient is a 32-year-old female that presents to the emergency department with continued back pain for approximately the last week after an injury. On exam, she was significantly uncomfortable. The patient's past records were reviewed. She does indeed have compression fractures of T2-T5. She does not have any more pain medication. She has spoken with orthopedics. The patient had good pain relief in the emergency department. She was given a short prescription for narcotics to get her through until she can see her primary care physician. She reportedly has an appointment tomorrow. She was comfortable with this plan, and discharged in good condition This chart was completed in part utilizing [employer] Speech Voice Recognition software. Attempts were made to minimize the grammatical errors, random word insertions, pronoun errors and incomplete sentences. Any formal questions or concerns about the content, text or information contained within the body of this dictation should be directly addressed to the provider for clarification. Impression Primary Impression: Compression fracture Departure Information Dispostion Home / Self-Care Condition GOOD Prescriptions Cyclobenzaprine Hcl (FLEXERIL) 10 Mg Tab 10 MG PO TID, #15 TAB Prov: Aida Barbosa PA-C 10/07/17 Oxycodone/Acetaminophen 5MG/325MG (PERCOCET 5MG/325MG) Tab 1 TAB PO Q4H Y for Pain, #12 TAB For Initial Treatment Prov: Aida Barbosa PA-C 10/07/17 Referrals Isaiah Jones M.D. (PCP) Patient Instructions My [facility] Additional Instructions You have been evaluated in the emergency department for severe back pain. This is likely due to your known history of compression fractures of T2, T3, T4 and T5 Please follow-up with your primary care physician as scheduled tomorrow Percocet take 1-2 pills every four hours for pain. Avoid alcohol, operating machinery or dangerous equipment, working on ladders or roofs, DRIVING, or situations where being under the influence may be dangerous. It is recommended to use an [id number] stool softener such as Colace, 100mg twice daily while taking this medication to avoid constipation. Please do not hesitate to return to the emergency department with any new, worsening or concerning symptoms It was a pleasure participating in your care this evening
[2017-10-07 21:45] VITALS: BP 116/81; PULSE 86; O2SAT 96
[2017-10-07] MEDS ORDERED: PERCOCET HOME PACK PO ONE (21:45)
[2017-10-07] MEDS ORDERED: CYCL10TA6 PO (21:54)
== END 2017-10-07 21:50 | disposition home or self-care (01) ==
LOC: C.EDB 19:56 → C.EDD 21:50
DX: S22.000A Wedge compression fracture of unspecified thoracic vertebra, initial encounter for closed fracture (principal); W19.XXXA Unspecified fall, initial encounter; F32.9 Major depressive disorder, single episode, unspecified; F17.200 Nicotine dependence, unspecified, uncomplicated

== ENCOUNTER 2021-11-12 13:34 | Inpatient (IN) ==
[2021-11-12] MEDS ORDERED: diphenhydrAMINE 50 MG/ML VIAL IV STA ×2 (14:16→19:36)
--- NOTE | 2021-11-12 14:21 | Emergency Department Note ---
Impression & Plan Weakness, Anemia, Drug abuse, COVID-19 ED Provider Note NAME: TEZ PAVON AGE: 36 SEX: F : 1985 ARRIVES VIA: Walk-In INFORMANT: [Patient][case management] ED PROVIDER(S): [Bud Greer MD] CHIEF COMPLAINT: Medical clearance HISTORY OF PRESENT ILLNESS: The patient is a 36-year-old female who has a history of methamphetamine abuse. She told our nursing staff that she last used 24 hours ago. She told me she used last a week ago. Patient was just in our facility and discharged yesterday. She was being evaluated for psychiatric purposes. After she was evaluated by psychiatry case management, it was not thought she required inpatient psychiatric care. Patient was diagnosed with a DVT in her right upper extremity recently. She is to be on Xarelto but admits she is not taking this medication. The patient denies any chest pain or shortness of breath. No abdominal pain. She thinks that she is eating and drinking well enough. She states that she is here because she was told she needed medical clearance to go to rehab tomorrow. Apparently, there is a bed available for her tomorrow. She will need to stay in our facility though until that timeframe. She is not suicidal. REVIEW OF SYSTEMS: See HPI for pertinent positives and negatives. A total of ten systems were reviewed and were otherwise negative. PMHx/PSHx: See Below SOCIAL HISTORY: See Below. PHYSICAL EXAM: GENERAL: Patient is in no acute distress. HEENT: No acute trauma, normocephalic atraumatic, mucous membranes dry, no nasal congestion, no scleral icterus. NECK: No stridor, no adenopathy, no meningismus, trachea is midline. LUNGS: Clear to auscultation bilaterally, no wheeze, no rhonchi, breath sounds equal. HEART: Subtle systolic murmur, regular rate and rhythm. ABDOMEN: Soft, nontender, bowel sounds positive, no peritonitis. EXTREMITIES: No cyanosis or edema, full range of motion of all the joints without pain or difficulty, no signs for acute trauma. NEUROLOGIC: Awake and alert, no speech slur. She is constantly moving her upper and lower extremities. No focal motor deficits. SKIN: No rash, no jaundice, no diaphoresis. Psychiatric: Currently cooperative, denies being suicidal. She is voluntary. Rectal: Brown stool, heme-negative. DIFFERENTIAL DIAGNOSIS: Mood disorder, infection, UTI, hypomagnesemia, suicidality, drug abuse, withdrawal, hypoglycemia, electrolyte abnormalities, cardiac sources, intracerebral event, toxicologic etiology, trauma, neurologic event, as well as other pathologies. EMERGENCY DEPARTMENT COURSE/PROCEDURES: MEDICAL DECISION MAKING: There is no leukocytosis. The patient is anemic. I did perform a rectal exam, the stool was brown and heme-negative. This exam was performed with a female drawing hand present. There is a normal platelet count. No significant electrolyte abnormality or renal failure. No worrisome liver enzyme elevation. The patient appears to be in a euthyroid state. testing is negative. Aspirin, Tylenol and alcohol levels are undetectable. Urine tox is pending. Urinalysis is pending. COVID test returned positive. Abdominal and pelvis CT did not show any acute surgical process. There was no sign of any infection by CT imaging. Chest x- ray did not show any pneumonia although, on CT imaging of the abdomen pelvis, some groundglass changes were seen to the lower lobes of the lungs. The patient received IV saline, she was given IV Benadryl. A second dose of IV Benadryl was given. The patient presents weak, she seems to be showing signs of withdrawal. She is anemic, she is COVID-positive. She has a recently diagnosed right upper extremity DVT and she is not taking her anticoagulation. The patient is not at this time stable for transfer to rehab. I do think a medical hospitalization would be more appropriate. Case management has seen the patient and spoken with her. Psychiatry case management has been involved. The patient is willing to stay for help here in our hospital. I spoke with the on-call hospitalist, we discussed the case. Past Med/Surg History Medical History Alcohol abuse Alcohol dependence Asthma Asthma, mild persistent Bipolar 1 disorder Depression Dyslipidemia Gastroparesis Marijuana abuse Osteoporosis SBO (small bowel obstruction) Urethral diverticulum Surgical History H/O arthroscopy of left knee History of sleeve gastrectomy History of tonsillectomy and adenoidectomy S/P foot surgery, left [place] teeth extracted Family History Mother Hypertension Other No pertinent family history Social History Smoking Status: Current every day smoker Tobacco Type: Cigarettes Cigarettes Per Day: 10-15; Second Hand Exposure: No; Hx Alcohol Use: Yes Hx Substance Use: No Preferred Language: Turkmen Communication Ability: Effective Front Desk Monitor Required: No Beliefs That Will Affect Care: None marital status: Single current occupational status: employed Feels Safe at Home: Declines to Answer Assistive Devices: None Allergies Allergies Allergy/AdvReac Type Severity Reaction Status Date / Time No Known Allergies Allergy Verified 07/06/20 15:38 Home Meds Home Medications Medication Instructions Recorded Confirmed prenat.vits,elida,[id number] 1 tab PO QAM 02/24/20 07/06/20 albuterol sulfate 90 mcg/actuation 2 puff INHALATION DIRECTED PRN 03/01/20 07/06/20 aerosol inhaler (Ventolin HFA) aspirin 81 mg tablet,delayed 81 mg PO DAILY 07/06/20 07/06/20 release cyanocobalamin (vitamin B-12) 1,000 mcg PO DAILY 07/06/20 07/06/20 1,000 mcg tablet (Vitamin B-12) ferrous sulfate 325 mg (65 mg 325 mg PO DAILY 07/06/20 07/06/20 iron) tablet (iron) sertraline 100 mg tablet 100 mg PO DAILY 07/06/20 07/06/20 Previous Rx's Medication Instructions Recorded rivaroxaban 15 mg tablet (Xarelto) 15 mg PO BID 21 Days #42 tab 10/25/21 Results & Data (ED) Vital Signs Vital Signs - 24 hr 11/12/21 13:44 11/12/21 15:31 11/12/21 17:30 Temperature 37.1 C Temperature Source Temporal Artery Scan Pulse Rate 104 H Pulse Rate [Apical] 66 63 Pulse Rhythm [Apical] Regular Regular Respiratory Rate 18 18 17 Respiratory Effort / Characteristics Non-Labored Spontaneous Non-Labored Spontaneous Respiratory Depth Normal Normal Respiratory Pattern Regular Regular Blood Pressure 115/70 Blood Pressure [Left Arm] 101/58 L 126/79 Blood Pressure Mean 85 Blood Pressure Mean [Left Arm] 72 94 Blood Pressure Position [Left Arm] Lying Lying Pulse Oximetry 97 96 98 Oxygen Delivery Method Room Air Room Air Room Air Sepsis Recent Fever Within 48 Hours No Sepsis New/Unexplained Change in Mental Status N/A Sepsis Action Taken by Nursing No Action Required Home Medications Current Medication List: was personally reviewed by me Laboratory Data Attestation: I reviewed the patient's lab results. Result diagrams: 11/12/21 14:45 11/12/21 14:45 Lab Results 11/12/21 11/12/21 11/12/21 Range/Units 14:45 14:45 14:45 WBC 6.16 (4.8-10.8) K/uL RBC 3.28 L (4.2-5.4) M/uL Hgb 9.0 L (12.0-16.0) g/dL Hct 28.7 L (37-47) % MCV 87.5 (80-100) fL MCH 27.4 (25-34) pg MCHC 31.4 L (32-36) g/dL RDW Std Deviation 52.2 H (36.4-46.3) fL RDW Coeff of Gurjit 16.1 H (11.5-14.5) % Plt Count 209 (130-400) K/uL MPV 10.2 (7.4-10.4) fL Immature Gran % (Auto) 0.2 % Neut % (Auto) 69.8 % Lymph % (Auto) 22.9 % Pope % (Auto) 5.2 % Eos % (Auto) 1.9 % Baso % (Auto) 0.0 % Neut # (Auto) 4.30 (1.4-6.5) K/uL Lymph # (Auto) 1.41 (1.2-3.4) K/uL Pope # (Auto) 0.32 (0.11-0.59) K/uL Eos # (Auto) 0.12 (0-0.5) K/uL Baso # (Auto) 0.00 (0-0.2) K/uL Immature Gran # (Auto) 0.01 (0.00-0.02) K/uL Sodium 140 (136-145) mmol/L Potassium 4.3 (3.5-5.1) mmol/L Chloride 110 H (98-107) mmol/L Carbon Dioxide 24 (21-32) mmol/L Anion Gap 6 (3-11) BUN 6 (6-23) mg/dl Creatinine 0.68 (0.6-1.2) mg/dl Est Cr Clr Drug Dosing 128.2 ml/min Est GFR ( Amer) 131.3 ml/min Est GFR (Non-Af Amer) 113.3 ml/min BUN/Creatinine Ratio 8.8 L (10-20) Glucose 72 (70-99(Fasting)) mg/dl Calcium 7.9 L (8.5-10.1) mg/dl Magnesium 1.8 (1.7-2.4) mg/dl Total Bilirubin 0.2 (0.2-1.0) mg/dl AST 15 (13-39) U/L ALT 10 (7-52) U/L Alkaline Phosphatase 70 (34-104) U/L Total Protein 5.7 L (6.0-8.3) gm/dl Albumin 3.4 (3.4-5.0) gm/dl Globulin 2.3 L (2.5-4.0) gm/dl Albumin/Globulin Ratio 1.5 (0.9-2) TSH (0.300-4.500) uIu/ml HCG, Qual Negative (Negative) Salicylates (3.0-30) mg/dl Acetaminophen (10-30) ug/ml Ethyl Alcohol mg/dL (<10.0) mg/dl SARS-CoV-2, RNA, NAAT (NEGATIVE) 11/12/21 11/12/21 11/12/21 Range/Units 14:45 14:45 14:45 WBC (4.8-10.8) K/uL RBC (4.2-5.4) M/uL Hgb (12.0-16.0) g/dL Hct (37-47) % MCV (80-100) fL MCH (25-34) pg MCHC (32-36) g/dL RDW Std Deviation (36.4-46.3) fL RDW Coeff of Gurjit (11.5-14.5) % Plt Count (130-400) K/uL MPV (7.4-10.4) fL Immature Gran % (Auto) % Neut % (Auto) % Lymph % (Auto) % Pope % (Auto) % Eos % (Auto) % Baso % (Auto) % Neut # (Auto) (1.4-6.5) K/uL Lymph # (Auto) (1.2-3.4) K/uL Pope # (Auto) (0.11-0.59) K/uL Eos # (Auto) (0-0.5) K/uL Baso # (Auto) (0-0.2) K/uL Immature Gran # (Auto) (0.00-0.02) K/uL Sodium (136-145) mmol/L Potassium (3.5-5.1) mmol/L Chloride (98-107) mmol/L Carbon Dioxide (21-32) mmol/L Anion Gap (3-11) BUN (6-23) mg/dl Creatinine (0.6-1.2) mg/dl Est Cr Clr Drug Dosing ml/min Est GFR ( Amer) ml/min Est GFR (Non-Af Amer) ml/min BUN/Creatinine Ratio (10-20) Glucose (70-99(Fasting)) mg/dl Calcium (8.5-10.1) mg/dl Magnesium (1.7-2.4) mg/dl Total Bilirubin (0.2-1.0) mg/dl AST (13-39) U/L ALT (7-52) U/L Alkaline Phosphatase (34-104) U/L Total Protein (6.0-8.3) gm/dl Albumin (3.4-5.0) gm/dl Globulin (2.5-4.0) gm/dl Albumin/Globulin Ratio (0.9-2) TSH 1.057 (0.300-4.500) uIu/ml HCG, Qual (Negative) Salicylates < 3.0 L (3.0-30) mg/dl Acetaminophen < 3 L (10-30) ug/ml Ethyl Alcohol mg/dL < 10.0 (<10.0) mg/dl SARS-CoV-2, RNA, NAAT (NEGATIVE) 11/12/21 Range/Units 16:46 WBC (4.8-10.8) K/uL RBC (4.2-5.4) M/uL Hgb (12.0-16.0) g/dL Hct (37-47) % MCV (80-100) fL MCH (25-34) pg MCHC (32-36) g/dL RDW Std Deviation (36.4-46.3) fL RDW Coeff of Gurjit (11.5-14.5) % Plt Count (130-400) K/uL MPV (7.4-10.4) fL Immature Gran % (Auto) % Neut % (Auto) % Lymph % (Auto) % Pope % (Auto) % Eos % (Auto) % Baso % (Auto) % Neut # (Auto) (1.4-6.5) K/uL Lymph # (Auto) (1.2-3.4) K/uL Pope # (Auto) (0.11-0.59) K/uL Eos # (Auto) (0-0.5) K/uL Baso # (Auto) (0-0.2) K/uL Immature Gran # (Auto) (0.00-0.02) K/uL Sodium (136-145) mmol/L Potassium (3.5-5.1) mmol/L Chloride (98-107) mmol/L Carbon Dioxide (21-32) mmol/L Anion Gap (3-11) BUN (6-23) mg/dl Creatinine (0.6-1.2) mg/dl Est Cr Clr Drug Dosing ml/min Est GFR ( Amer) ml/min Est GFR (Non-Af Amer) ml/min BUN/Creatinine Ratio (10-20) Glucose (70-99(Fasting)) mg/dl Calcium (8.5-10.1) mg/dl Magnesium (1.7-2.4) mg/dl Total Bilirubin (0.2-1.0) mg/dl AST (13-39) U/L ALT (7-52) U/L Alkaline Phosphatase (34-104) U/L Total Protein (6.0-8.3) gm/dl Albumin (3.4-5.0) gm/dl Globulin (2.5-4.0) gm/dl Albumin/Globulin Ratio (0.9-2) TSH (0.300-4.500) uIu/ml HCG, Qual (Negative) Salicylates (3.0-30) mg/dl Acetaminophen (10-30) ug/ml Ethyl Alcohol mg/dL (<10.0) mg/dl SARS-CoV-2, RNA, NAAT POSITIVE A* (NEGATIVE) Administered Medications Discontinued Medications Diphenhydramine HCl (Diphenhydramine 50 Mg/Ml Vial) 25 mg IV NOW STA Stop: 11/12/21 14:17 Last Admin: 11/12/21 14:44 Dose: 25 mg Documented by: [id number] Sodium Chloride (Nss) 500 mls @ 999 mls/hr IV .Q31M GABRIELLE Stop: 11/12/21 15:00 Last Infusion: 11/12/21 15:29 Dose: 0 mls/hr Documented by: [id number] Admin: 11/12/21 14:44 Dose: 999 mls/hr Documented by: [id number] Ioversol (Optiray 320 100ml) 94 ml IV ONCE ONE Stop: 11/12/21 16:01 Last Admin: 11/12/21 16:00 Dose: 94 ml Documented by: [id number] Imaging Data Radiologist's Impression: Abdomen/Pelvis CT 11/12/21 15:44 CT abd pelvis IV con only CLINICAL HISTORY: pain, anemia TECHNIQUE: Helical axial images of the abdomen and pelvis were obtained and displayed. Automated dose lowering techniques and/or adjustment according to pa tient size were utilized for this exam. This exam was performed with intravenous contrast. CT DOSE: 373.58 mGy.cm COMPARISON: Comparison is made to CT abdomen pelvis 11/11/2021 FINDINGS: Exam is limited by patient motion. Lower chest: Bilateral groundglass opacities are noted in the lung bases. Liver: Unremarkable. No focal lesions are seen. Gallbladder and biliary tree: Patient is status post cholecystectomy. P hysiologic prominence of the biliary ducts is noted. Pancreas: Unremarkable, no focal lesions. Spleen: Unremarkable. Adrenals: Unremarkable. Kidneys and ureters: Unremarkable. Bladder: Unremarkable. Reproductive organs: Unremarkable. Bowel: Status post gastric bypass surgery. Lymph nodes Retroperitoneal: Unremarkable. Mesenteric: Unremarkable. Pelvic: Unremarkable. Peritoneum: Normal. Vessels: Unremarkable. Abdominal wall: Unremarkable. Bones: Degenerative changes in the visualized spine. IMPRESSION: 1. Limited exam due to patient motion. No acute intra-abdominal abnormalities. 2. Partial visualization of ground glass opacities in the bilateral lung bases. Findings may represent infectious/inflammatory process. ACT 112: Negative or not required by law. Electronically signed by: Salvador Bryan M.D. 11/12/2021 4:20 PM Chest X-Ray 11/12/21 16:42 XR chest 1V portable CLINICAL HISTORY: poss pneumonia TECHNIQUE: Single frontal radiograph of the chest was obtained. Comparison: Comparison is made to chest radiograph 11/10/2021 FINDINGS: No lines and tubes are seen. The cardiomediastinal silhouette is normal. The lungs are clear. No evidence of pleural effusion or pneumothorax. IMPRESSION: No acute abnormalities and in particular no evidence of pneumonia. ACT 112: Negative or not required by law. Electronically signed by: Salvador Bryan M.D. 11/12/2021 5:01 PM Discharge Plan Visit Data Chief Complaint: Medical Clearance Stated Complaint: DRUG WITHDRAWAL ED Provider: Bud Greer Discharge Problem: Weakness, Anemia, Drug abuse, COVID-19 Patient Disposition: Admitted As Inpatient Condition: Fair Forms Stand Alone Forms: [facility] [place] Prescriptions Prescriptions: No Action albuterol sulfate [Ventolin HFA] 90 mcg/actuation Hfa Aerosol Inhaler 2 puff INHALATION DIRECTED PRN (Reason: Cough,SOB,Wheezing) RF: 0 sertraline 100 mg tablet 100 mg PO DAILY RF: 0 cyanocobalamin (vitamin B-12) [Vitamin B-12] 1,000 mcg Tablet 1,000 mcg PO DAILY RF: 0 aspirin [Aspirin Low-Strength] 81 mg Tablet,Delayed Release (Dr/Ec) 81 mg PO DAILY RF: 0 ferrous sulfate [iron] 325 mg (65 mg iron) Tablet 325 mg PO DAILY RF: 0 #2 Tablet 1 tab PO QAM RF: 0 Xarelto 15 mg tablet 15 mg PO BID 21 Days Qty: 42 RF: 0 Referrals Referrals: Isaiah Jones MD [Primary Care Provider] -
[2021-11-12] MEDS ORDERED: SODIUM CHLORIDE 0.9% 500 ML IV SCH (14:30)
[2021-11-12 15:19] LABS: Eosinophils # (auto) 0.12 K/uL (0-0.5); Eosinophils % (auto) 1.9 %; Hematocrit (blood only) 28.7 % (37-47); Immature Granulocytes # (auto) 0.01 K/uL (0.00-0.02); Immature Granulocytes % (auto) 0.2 %; Lymphocytes # (auto) 1.41 K/uL (1.2-3.4); Lymphocytes % (auto) 22.9 %; Mean Corpuscular Hemoglobin 27.4 pg (25-34); Mean Corpuscular Hgb Conc 31.4 g/dL (32-36); Mean Corpuscular Volume 87.5 fL (80-100); Mean Platelet Volume 10.2 fL (7.4-10.4); Monocytes # (auto) 0.32 K/uL (0.11-0.59); Monocytes % (auto) 5.2 %; Neutrophils % (auto) 69.8 %; Platelet Count 209 K/uL (130-400); RDW Coefficient of Variation 16.1 % (11.5-14.5); RDW Standard Deviation 52.2 fL (36.4-46.3); Red Blood Count 3.28 M/uL (4.2-5.4); White Blood Count 6.16 K/uL (4.8-10.8)
[2021-11-12 15:39] LABS: Albumin Globulin Ratio 1.5 (0.9-2); Albumin Level 3.4 gm/dl (3.4-5.0); BUN Creatinine Ratio 8.8 (10-20); Bilirubin,Total 0.2 mg/dl (0.2-1.0); Calcium 7.9 mg/dl (8.5-10.1); Creatinine Clr Calc Pharmacy 128.2 ml/min; Est GFR (African American) 131.3 ml/min; Est GFR (Non-African American) 113.3 ml/min; Globulin 2.3 gm/dl (2.5-4.0); Magnesium 1.8 mg/dl (1.7-2.4); Potassium 4.3 mmol/L (3.5-5.1); Total Protein 5.7 gm/dl (6.0-8.3)
[2021-11-12 15:40] LABS: Acetaminophen < 3 ug/ml (10-30); Salicylate < 3.0 mg/dl (3.0-30)
[2021-11-12] MEDS ORDERED: OPTIRAY 320 100ml IV ONE (16:00)
[2021-11-12 16:01] LABS: Pregnancy Test, Serum Negative (Negative)
--- NOTE | 2021-11-12 16:22 | CT Scan Report ---
CT abd pelvis IV con only CLINICAL HISTORY: pain, anemia TECHNIQUE: Helical axial images of the abdomen and pelvis were obtained and displayed. Automated dose lowering techniques and/or adjustment according to patient size were utilized for this exam. This e xam was performed with intravenous contrast. CT DOSE: 373.58 mGy.cm COMPARISON: Comparison is made to CT abdomen pelvis 11/11/2021 FINDINGS: Exam is limited by patient motion. Lower chest: Bilateral groundglass opacities are noted in the lung bases. Liver: Unremarkable. No focal lesions are seen. Gallbladder and biliary tree: Patient is status post cholecystectomy. Physiologic prominence of the b iliary ducts is noted. Pancreas: Unremarkable, no focal lesions. Spleen: Unremarkable. Adrenals: Unremarkable. Kidneys and ureters: Unremarkable. Bladder: Unremarkable. Reproductive organs: Unremarkable. Bowel: Status post gastric bypass surgery. Lymph nodes Retroperitoneal: Unremarkable. Mesenteric: Unremarkable. Pelvic: Unremarkable. Peritoneum: Normal. Vessels: Unremarkable. Abdominal wall: Unremarkable. Bones: Degenerative changes in the visualized spine. IMPRESSION: 1. Limited exam due to patient motion. No acute intra-abdominal abnormalities. 2. Partial visualization of ground glass opacities in the bilateral lung bases. Findings may represe nt infectious/inflammatory process. ACT 112: Negative or not required by law. Electronically signed by: Salvador Bryan M.D. 11/12/2021 4:20 PM
--- NOTE | 2021-11-12 17:02 | XRay Report ---
XR chest 1V portable CLINICAL HISTORY: poss pneumonia TECHNIQUE: Single frontal radiograph of the chest was obtained. Comparison: Comparison is made to chest radiograph 11/10/2021 FINDINGS: No lines and tubes are seen. The cardiomediastinal silhouette is normal. The lungs are clear. No evid ence of pleural effusion or pneumothorax. IMPRESSION: No acute abnormalities and in particular no evidence of pneumonia. ACT 112: Negative or not required by law. Electronically signed by: Salvador Bryan M.D. 11/12/2021 5:01 PM
[2021-11-12] MEDS ORDERED: DOXYCYCLINE HYCLATE 100 MG CAP PO STA (20:23)
--- NOTE | 2021-11-12 20:23 | History & Physical Report ---
Date of Service November 12, 2021 Assessment & Plan (1) Pneumonia due to COVID-19 virus: Plan: Groundglass opacities noted on CT imaging With superimposed bacterial infection. Patient nontoxic. hypertension, currently not on meds Anemia, lower end of baseline hx gastric bypass FOBT done at the ER was negative RUE DVT from outpatient study few weeks ago No prior episodes as per ER visit documentation. Patient has not been able to comply with Xarelto prescription from ER provider. anxiety/mood disorder, suboptimal hx substance abuse past alcohol abuse ongoing tobacco abuse [facility] Doxycycline for superimposed bacterial infection Anemia work-up, transfuse PRBC if hemoglobin less than 7 and or for symptomatic anemia Xarelto for RUE DVT 3-month course Psych consult Re: Anxiety/mood disorder Social service re: discharge planning Nicotine patch as needed DVT prophylaxis. Xarelto Full code Patient mother requesting updates from providers. Ms. Mariana Ny, contact #[phone]. Text document was generated using [employer] voice recognition software. It may contain grammatical or spelling errors. Kindly contact undersigned for clarification of any documentation item in question. History of Present Illness Chief Complaint: Need to go to rehab Primary Care Provider: Isaiah Jones MD History obtained from patient, family, and records. Limited history from patient secondary to uncooperativeness. Medical history significant for recent history of hypertension, hyperlipidemia, history of gastric bypass, RUE DVT (medication noncompliance ), chronic anemia (baseline hemoglobin 9-10), anxiety/mood disorder, substance abuse, past alcohol abuse, ongoing tobacco abuse. Recent confinement [facility] last month for lorazepam/Ambien drug overdose status post intubation. Patient discharged to [facility]. Following discharge from [facility], patient mother thinks patient is homeless and using drugs again. Patient seen at the ER on 3 occasions this month. 10/25 Visit for RUE swelling and outpatient RUE venous Dopplers for DVT. Patient discharged on Xarelto course. Patient unable to comply with prescription. 11/08 Patient seen for syncope and dehydration symptoms. Subsequently discharged. 11/10 Patient seen for dizziness symptoms. Subsequently discharged. Today patient returned to the ER seeking medical clearance prior to acceptance at psychiatric facility for worsening anxiety and substance abuse issues. Patient denies suicidality. 2 days history of junky cough symptoms without chest pain, SOB. Patient denies abdominal pain, black/bloody stools. Patient not sure about COVID-19 contacts. Unable to verify COVID-19 vaccination status. Medical History as above Surgical History : section, cystoscopy, dental surgery, foot/toe surgery, gastric bypass/sleeve gastrectomy, left knee surgery, diagnostic laparoscopy, tonsillectomy/adenoidectomy Family History : DM, heart disease Personal/Social history : Half pack daily, past alcohol abuse, currently unemployed Allergies Allergy/AdvReac Type Severity Reaction Status Date / Time No Known Allergies Allergy Verified 11/12/21 19:31 Home Medications Medication Instructions Recorded Confirmed Type ferrous sulfate 325 mg (65 mg 325 mg PO QDL 07/06/20 11/12/21 History iron) tablet (iron) sertraline 100 mg tablet 200 mg PO DAILY 07/06/20 11/12/21 History bupropion HCl 150 mg tablet,12 hr 150 mg PO BID 11/12/21 11/12/21 History sustained-release (Wellbutrin SR) buspirone 10 mg tablet 10 mg PO BID 11/12/21 11/12/21 History cholecalciferol (vitamin D3) 25 75 mcg PO DAILY 11/12/21 11/12/21 History mcg (1,000 unit) capsule (Vitamin D3) cyanocobalamin (vitamin B-12) 1,000 mcg PO DAILY 11/12/21 11/12/21 History 1,000 mcg tablet (Vitamin B-12) folic acid 1 mg tablet 1 mg PO DAILY 11/12/21 11/12/21 History gabapentin 300 mg capsule 300 mg PO TID 11/12/21 11/12/21 History haloperidol lactate 5 mg/mL 5 mg IM Q6H PRN 11/12/21 11/12/21 History injection solution hydroxyzine HCl 25 mg tablet 25 mg PO QID PRN 11/12/21 11/12/21 History multivitamin,qk-zjpz-tjjvxdcg 1 tab PO DAILY 11/12/21 11/12/21 History nicotine 7 mg/24 hr daily 1 patch TRANSDERMAL DAILY 11/12/21 11/12/21 History transdermal patch prazosin 1 mg capsule 1 mg PO BID 11/12/21 11/12/21 History thiamine HCl (vitamin B1) 100 mg 100 mg PO DAILY 11/12/21 11/12/21 History tablet (Vitamin B-1) Past Med/Surg History Medical History (Updated 11/13/21 @ 07:12 by Tejas Martinez MD) Alcohol abuse Alcohol dependence Asthma Asthma, mild persistent Bipolar 1 disorder Depression Dyslipidemia Gastroparesis Marijuana abuse Osteoporosis SBO (small bowel obstruction) Urethral diverticulum Surgical History H/O arthroscopy of left knee History of sleeve gastrectomy History of tonsillectomy and adenoidectomy S/P foot surgery, left [place] teeth extracted Family History Mother Hypertension Other No pertinent family history Social History Smoking Status: Current every day smoker Tobacco Type: Cigarettes Cigarettes Per Day: Pack a day.; Second Hand Exposure: No; Do You Dip or Chew Tobacco: No; Tobacco Cessation Education Requested by Patient: No Hx Alcohol Use: Yes Alcohol type: hard liquor Hx Substance Use: Yes Last Used Substance: Hours (ago) Preferred Language: Maori Communication Ability: Effective Watch Leader Required: No Beliefs That Will Affect Care: None marital status: Single Current Living Situation: Other Current Living Situation Comment: Patient stated "alf house". current occupational status: employed Other Information That Helps Us Care for You: No Feels Safe at Home: Yes Safety Concerns: Feels Safe At This Time Assistive Devices: None Review of Systems Review of Systems: Could not be reliably obtained secondary to uncooperativeness Physical Exam Physical Exam: GENERAL: uncomfortable, irate, unkempt, no respiratory distress SKIN: Pallor,, warm HEENT: Pale palpebral conjunctivae, no ptosis, dry buccal mucosa NECK : Supple, no tenderness CHEST : Decreased breath sounds, no tenderness HEART : RRR, no obvious murmurs ABDOMEN: Some distention, nontender RECTAL : Intact sphincter, yellow stool (FOBT negative) EXTREMITIES : No LE swelling/tenderness, no other conspicuous deformities noted NEUROLOGIC : Uncooperative, no facial asymmetry, gait and stance not assessed Results & Data Results & Data ([facility]) Vital Signs (Past 12 Hours) Vital Signs Temp Pulse Pulse Resp BP BP Pulse Ox 11/12/21 19:36 36.6 C 68 17 116/61 98 11/12/21 17:30 63 17 126/79 98 11/12/21 15:31 66 18 101/58 L 96 11/12/21 13:44 37.1 C 104 H 18 115/70 97 Laboratory Results Laboratory Results WBC 6.16 K/uL (4.8-10.8) 11/12/21 14:45 RBC 3.28 M/uL (4.2-5.4) L 11/12/21 14:45 Hgb 9.0 g/dL (12.0-16.0) L 11/12/21 14:45 Hct 28.7 % (37-47) L 11/12/21 14:45 MCV 87.5 fL (80-100) 11/12/21 14:45 MCH 27.4 pg (25-34) 11/12/21 14:45 MCHC 31.4 g/dL (32-36) L 11/12/21 14:45 RDW Std Deviation 52.2 fL (36.4-46.3) H 11/12/21 14:45 RDW Coeff of Gurjit 16.1 % (11.5-14.5) H 11/12/21 14:45 Plt Count 209 K/uL (130-400) 11/12/21 14:45 MPV 10.2 fL (7.4-10.4) 11/12/21 14:45 Immature Gran % (Auto) 0.2 % 11/12/21 14:45 Neut % (Auto) 69.8 % 11/12/21 14:45 Lymph % (Auto) 22.9 % 11/12/21 14:45 Trimble % (Auto) 5.2 % 11/12/21 14:45 Eos % (Auto) 1.9 % 11/12/21 14:45 Baso % (Auto) 0.0 % 11/12/21 14:45 Neut # (Auto) 4.30 K/uL (1.4-6.5) 11/12/21 14:45 Lymph # (Auto) 1.41 K/uL (1.2-3.4) 11/12/21 14:45 Trimble # (Auto) 0.32 K/uL (0.11-0.59) 11/12/21 14:45 Eos # (Auto) 0.12 K/uL (0-0.5) 11/12/21 14:45 Baso # (Auto) 0.00 K/uL (0-0.2) 11/12/21 14:45 Immature Gran # (Auto) 0.01 K/uL (0.00-0.02) 11/12/21 14:45 Sodium 140 mmol/L (136-145) 11/12/21 14:45 Potassium 4.3 mmol/L (3.5-5.1) 11/12/21 14:45 Chloride 110 mmol/L (98-107) H 11/12/21 14:45 Carbon Dioxide 24 mmol/L (21-32) 11/12/21 14:45 Anion Gap 6 (3-11) 11/12/21 14:45 BUN 6 mg/dl (6-23) 11/12/21 14:45 Creatinine 0.68 mg/dl (0.6-1.2) 11/12/21 14:45 Est Cr Clr Drug Dosing 128.2 ml/min 11/12/21 14:45 Est GFR ( Amer) 131.3 ml/min 11/12/21 14:45 Est GFR (Non-Af Amer) 113.3 ml/min 11/12/21 14:45 BUN/Creatinine Ratio 8.8 (10-20) L 11/12/21 14:45 Glucose 72 mg/dl (70-99(Fasting)) 11/12/21 14:45 Calcium 7.9 mg/dl (8.5-10.1) L 11/12/21 14:45 Magnesium 1.8 mg/dl (1.7-2.4) 11/12/21 14:45 Total Bilirubin 0.2 mg/dl (0.2-1.0) 11/12/21 14:45 AST 15 U/L (13-39) 11/12/21 14:45 ALT 10 U/L (7-52) 11/12/21 14:45 Alkaline Phosphatase 70 U/L (34-104) 11/12/21 14:45 Total Protein 5.7 gm/dl (6.0-8.3) L 11/12/21 14:45 Albumin 3.4 gm/dl (3.4-5.0) 11/12/21 14:45 Globulin 2.3 gm/dl (2.5-4.0) L 11/12/21 14:45 Albumin/Globulin Ratio 1.5 (0.9-2) 11/12/21 14:45 TSH 1.057 uIu/ml (0.300-4.500) 11/12/21 14:45 HCG, Qual Negative (Negative) 11/12/21 14:45 Salicylates < 3.0 mg/dl (3.0-30) L 11/12/21 14:45 Acetaminophen < 3 ug/ml (10-30) L 11/12/21 14:45 Ethyl Alcohol mg/dL < 10.0 mg/dl (<10.0) 11/12/21 14:45 SARS-CoV-2, RNA, NAAT POSITIVE (NEGATIVE) A* 11/12/21 16:46 Impressions Abdomen/Pelvis CT 11/12/21 15:44 CT abd pelvis IV con only CLINICAL HISTORY: pain, anemia TECHNIQUE: Helical axial images of the abdomen and pelvis were obtained and displayed. Automated dose lowering techniques and/or adjustment according to patient size were utilized for this exam. This exam was performed with intraven ous contrast. CT DOSE: 373.58 mGy.cm COMPARISON: Comparison is made to CT abdomen pelvis 11/11/2021 FINDINGS: Exam is limited by patient motion. Lower chest: Bilateral groundglass opacities are noted in the lung bases. Liver: Unremarkable. No focal lesions are seen. Gallbladder and biliary tree: Patient is status post cholecystectomy. Physiologic prominence of the biliary ducts is noted. Pancreas: Unremarkable, no focal lesions. Spleen: Unremarkable. Adrenals: Unremarkable. Kidneys and ureters: Unremarkable. Bladder: Unremarkable. Reproductive organs: Unremarkable. Bowel: Status post gastric bypass surgery. Lymph nodes Retroperitoneal: Unremarkable. Mesenteric: Unremarkable. Pelvic: Unremarkable. Peritoneum: Normal. Vessels: Unremarkable. Abdominal wall: Unremarkable. Bones: Degenerative changes in the visualized spine. IMPRESSION: 1. Limited exam due to patient motion. No acute intra-abdominal abnormalities. 2. Partial visualization of ground glass opacities in the bilateral lung bases. Findings may represent infectious/inflammatory process. ACT 112: Negative or not required by law. Electronically signed by: Salvador Bryan M.D. 11/12/2021 4:20 PM Chest X-Ray 11/12/21 16:42 XR chest 1V portable CLINICAL HISTORY: poss pneumonia TECHNIQUE: Single frontal radiograph of the chest was obtained. Comparison: Comparison is made to chest radiograph 11/10/2021 FINDINGS: No lines and tubes are seen. The cardiomediastinal silhouette is normal. The lungs are clear. No evidence of pleural effusion or pneumothorax. IMPRESSION: No acute abnormalities and in particular no evidence of pneumonia. ACT 112: Negative or not required by law. Electronically signed by: Salvador Bryan M.D. 11/12/2021 5:01 PM Diagnostic Findings EKG as per my interpretation : Rate 75, NSR, normal axis, T wave abnormalities inferior leads
[2021-11-12] MEDS: RIVAROXABAN 15 MG TAB PO SCH (22:29)
[2021-11-12] MEDS ORDERED: IPRATROPIUM BROMIDE NEB SOLN 0.02% 2.5 ML VIAL INH PRN (22:58)
[2021-11-12] MEDS ORDERED: hydrOXYzine HCl 25 MG TAB PO PRN (22:58)
[2021-11-12] MEDS ORDERED: XOPENEX/ATROVENT 1.25mg/0.5MG NEB COMBO NEB PRN (22:58)
[2021-11-12] MEDS ORDERED: PROMETHAZINE HCL 12.5 MG in SODIUM CHLORIDE 0.9% 50 ML IV PRN (22:58)
[2021-11-12] MEDS ORDERED: LEVALBUTEROL 1.25MG/0.5ML NEB INH PRN (22:58)
[2021-11-12 23:00] LABS: Appearance Urine Clear (Clear); Bilirubin Urine Negative (Negative); Blood Urine Negative (Negative); Color Urine Yellow; Glucose Urine UA Negative (Negative); Ketones Urine Negative (Negative); Leukocyte Esterase Urine Negative (Negative); Nitrite Urine Negative (Negative); Protein Urine Negative (Negative); Specific Gravity Urine 1.037 (1.000-1.030); Urobilinogen Urine Negative (Negative); pH Urine 6.5 (4.5-7.5)
[2021-11-12] MEDS: buPROPion SR 150 MG TABCR PO SCH (23:31)
[2021-11-12] MEDS: GABAPENTIN 300 MG CAP PO SCH (23:32)
[2021-11-12] MEDS: busPIRone 5 MG TAB PO SCH (23:32)
[2021-11-12] MEDS: PRAZOSIN HCL 1 MG CAP PO SCH (23:33)
[2021-11-12 23:39] LABS: Amphetamines+Metham, Urine Pos (Neg); Barbiturates, Urine Neg (Neg); Benzodiazepine, Urine Neg (Neg); Cocaine, Urine Neg (Neg); MDMA (Ecstacy), Urine Pos (Neg); Methadone, Urine Neg (Neg); Opiate, Urine Neg (Neg); Phencyclidine, Urine Neg (Neg)
[2021-11-13 06:59] LABS: Hematocrit (blood only) 29.4 % (37-47); Hemoglobin 9.3 g/dL (12.0-16.0); Mean Corpuscular Hemoglobin 27.8 pg (25-34); Mean Corpuscular Hgb Conc 31.6 g/dL (32-36); Mean Corpuscular Volume 87.8 fL (80-100); Platelet Count 176 K/uL (130-400); RDW Coefficient of Variation 15.9 % (11.5-14.5); Red Blood Count 3.35 M/uL (4.2-5.4); Reticulocyte % 0.7 % (0.5-2.0); Reticulocytes # 0.02 10^6/uL (0.02-0.10); White Blood Count 3.67 K/uL (4.8-10.8)
[2021-11-13 07:23] LABS: BUN Creatinine Ratio 4.6 (10-20); Calcium 8.1 mg/dl (8.5-10.1); Creatinine Clr Calc Pharmacy 134.8 ml/min; Est GFR (African American) 133.3 ml/min
[2021-11-13 07:27] LABS: Ferritin 16.1 ng/ml (8-388)
[2021-11-13 07:33] LABS: Folate (Folic Acid) 11.26 ng/ml (>5.38)
[2021-11-13 07:35] LABS: Basophils # (auto) 0.02 K/uL (0-0.2); Basophils % (auto) 0.5 %; Eosinophils # (auto) 0.12 K/uL (0-0.5); Eosinophils % (auto) 3.3 %; Lymphocytes # (auto) 1.87 K/uL (1.2-3.4); Monocytes # (auto) 0.17 K/uL (0.11-0.59); Monocytes % (auto) 4.6 %; Neutrophils # (auto) 1.49 K/uL (1.4-6.5); Neutrophils % (auto) 40.6 %
[2021-11-13] MEDS: RIVAROXABAN 15 MG TAB PO SCH ×2 (09:52→17:31)
[2021-11-13] MEDS: NICOTINE 14 MG/24 HR PATCH TD SCH (09:53)
[2021-11-13] MEDS: busPIRone 5 MG TAB PO SCH ×2 (09:55→19:55)
[2021-11-13] MEDS: FOLIC ACID 1 MG TAB PO SCH (09:55)
[2021-11-13] MEDS: THIAMINE HCL 100 MG TAB PO SCH (09:56)
[2021-11-13] MEDS: CYANOCOBALAMIN (B-12) 500 MCG TABLET PO SCH (09:56)
[2021-11-13] MEDS: DOXYCYCLINE HYCLATE 100 MG CAP PO SCH ×2 (09:57→19:55)
[2021-11-13] MEDS: SERTRALINE HCL 100 MG TABLET PO SCH (09:57)
[2021-11-13] MEDS: GABAPENTIN 300 MG CAP PO SCH ×3 (09:58→19:56)
[2021-11-13] MEDS: buPROPion SR 150 MG TABCR PO SCH ×2 (09:58→19:54)
[2021-11-13] MEDS: PRAZOSIN HCL 1 MG CAP PO SCH ×2 (10:01→19:56)
[2021-11-13] MEDS: VITAMIN B COMPLEX TAB PO SCH (11:24)
[2021-11-13] MEDS: CEROVITE ADV FORMULA TAB PO SCH (11:25)
[2021-11-13] MEDS ORDERED: FERROUS SULFATE 325 MG TAB PO SCH (11:30)
--- NOTE | 2021-11-13 13:13 | Psychiatric Consultation ---
Date of Consultation November 13, 2021 Impression / Recommendations Impression This is a 36 yo woman with history of BPAD, anxiety, depression, methamphetamine use disorder in early remission, cannabis use and alcohol use disorder in sustained remission who presented for medical clearance for dual diagnosis substance use treatment but was admitted medically as found to be COVID+ and have pneumonia. Diagnostically consistent with methamphetamine use disorder as well as unspecified mood disorder likely a combination of substance-induced as well as possible BPAD versus episodic MDD and YAO, PTSD per history. At this point risk of acute harm to self and others is slightly increased due to substance use but low given denial of SI and HI and denial of significant symptoms of depression with substance use treatment being the most significant modifiable risk factor to reduce acute and chronic risk. Recommendation is for dual diagnosis or residential substance use treatment once medically stable which she is in agreement with. (1) Methamphetamine use disorder, moderate, in early remission: (2) COVID-19: (3) Anxiety: (4) Post traumatic stress disorder (PTSD): -Has an outpatient psychiatrist who she can follow-up with after discharge -Will attempt to get outpatient records from [facility] and recent [facility] admissions to confirm medications, she is not currently on a mood stabilizer which we discussed increases the risk for gab if the diagnosis of BPAD is accurate. She is willing to try an antipsychotic medication for mood stabilization if outside records confirm BPAD by history. -Patient is not an imminent danger to self or others and does not meet criteria for involuntary psychiatric commitment -If sleep becomes problematic would consider consolidating Wellbutrin to XL dose at qAM though she denies that BID dosing negatively impacts her sleep. Risk Factors Assessment Do You Have Access To A Gun?: No Telehealth Telehealth Options: Telephone only For the duration of the visit, provider was performing the assessment from: The same facility as the patient After establishing a telemedicine visit, patient was: Patient was verified with two unique identifiers, Patient/authorized rep acknowledged consent and understanding and Gave permission to continue telehealth session Total Time Spent (minutes): 35 Psych History Identifying Data 36 yo woman with history of BPAD, anxiety, depression, methamphetamine use disorder in early remission, cannabis use and alcohol use disorder in sustained remission who presented for medical clearance for dual diagnosis substance use treatment but was admitted medically as found to be COVID+ and have pneumonia. Chief Complaint "I'm so tired". History of Present Illness Marina notes she came to the ED due to not feeling well in recent days and wanting to get support in avoiding relapse of methamphetamine use. She has been homeless, as her parents have a PFA against her, and has been staying where ever she can but last night was at [facility]. She denies any current SI. She had a suicide attempt last month via overdose of lorazepam/Ambien and went to the [facility]. States she doesn't want to talk about her suicide attempt. She states she was "so out of it" and "so sick and no one was listening" in recent days and feels it makes sense now that she knows she has pneumonia and COVID. She denies any alcohol use in 4 years. She uses cannabis now and then and reports "someone gave me a THC pill to help me sleep because I was sick" in recent days. She was using methamphetamine but hasn't used it in over a week. She's having cravings and withdrawal symptoms but she said the biggest symptom is "the mental thoughts" of wanting to use meth. Was using methamphetamine to help with her low energy. She has been taking gabapentin, buspar, Wellbutrin and zoloft. States the [facility] put her on Depakote but she will never take this again as it made her feel awful. In the past took Vraylar (last a few weeks to months ago) and prazosin for night terrors as well as Ativan and Ambien in the past. Has tried lamictal in the past. She states she has experienced gab before but unclear if this has ever occurred outside of the context of active substance use. Past Psychiatric History Current Psychiatric Diagnosis: BPAD, PTSD, MDD, YAO per her report Outpatient Services: psychiatrist Jacob More Previous Psych Admissions: [facility] a few weeks ago for depression, ~3 times prior to that Do You Have Access To A Gun?: No History of Previous Suicide Attempt: Yes Describe Attempts in the Past: OD on ativan and ambien in late September/early October 2021 Past Medication Trials: see HPI Allergies Allergy/AdvReac Type Severity Reaction Status Date / Time No Known Allergies Allergy Verified 11/12/21 19:31 Home Medications Medication Instructions Recorded Confirmed Type ferrous sulfate 325 mg (65 mg 325 mg PO QDL 07/06/20 11/12/21 History iron) tablet (iron) sertraline 100 mg tablet 200 mg PO DAILY 07/06/20 11/12/21 History bupropion HCl 150 mg tablet,12 hr 150 mg PO BID 11/12/21 11/12/21 History sustained-release (Wellbutrin SR) buspirone 10 mg tablet 10 mg PO BID 11/12/21 11/12/21 History cholecalciferol (vitamin D3) 25 75 mcg PO DAILY 11/12/21 11/12/21 History mcg (1,000 unit) capsule (Vitamin D3) cyanocobalamin (vitamin B-12) 1,000 mcg PO DAILY 11/12/21 11/12/21 History 1,000 mcg tablet (Vitamin B-12) folic acid 1 mg tablet 1 mg PO DAILY 11/12/21 11/12/21 History gabapentin 300 mg capsule 300 mg PO TID 11/12/21 11/12/21 History haloperidol lactate 5 mg/mL 5 mg IM Q6H PRN 11/12/21 11/12/21 History injection solution hydroxyzine HCl 25 mg tablet 25 mg PO QID PRN 11/12/21 11/12/21 History multivitamin,cd-ijvi-uhuqrcxk 1 tab PO DAILY 11/12/21 11/12/21 History nicotine 7 mg/24 hr daily 1 patch TRANSDERMAL DAILY 11/12/21 11/12/21 History transdermal patch prazosin 1 mg capsule 1 mg PO BID 11/12/21 11/12/21 History thiamine HCl (vitamin B1) 100 mg 100 mg PO DAILY 11/12/21 11/12/21 History tablet (Vitamin B-1) Substance Abuse History see HPI Personal History Living Arrangements: Homeless Employment Status: Unemployed Beliefs That Will Affect Care: None History of Legal Problems: parents have a PFA against her Patient History Medical History (Updated 11/13/21 @ 17:12 by Alexandra Álvarez MD) Alcohol abuse Alcohol dependence Asthma Asthma, mild persistent Bipolar 1 disorder Depression Dyslipidemia Gastroparesis Marijuana abuse Osteoporosis SBO (small bowel obstruction) Urethral diverticulum Surgical History H/O arthroscopy of left knee History of sleeve gastrectomy History of tonsillectomy and adenoidectomy S/P foot surgery, left [place] teeth extracted Family History Mother Hypertension Other No pertinent family history Social History Smoking Status: Current every day smoker Tobacco Type: Cigarettes Cigarettes Per Day: Pack a day.; Second Hand Exposure: No; Do You Dip or Chew Tobacco: No; Tobacco Cessation Education Requested by Patient: No Hx Alcohol Use: Yes Alcohol type: hard liquor Hx Substance Use: Yes Last Used Substance: Hours (ago) Preferred Language: Swazi Communication Ability: Effective Compressor Battery Pellets Required: No Beliefs That Will Affect Care: None marital status: Single Current Living Situation: Other Current Living Situation Comment: Patient stated "care home house". current occupational status: employed How many Children do You have: 0 Other Information That Helps Us Care for You: No Feels Safe at Home: Yes Safety Concerns: Feels Safe At This Time Assistive Devices: None Physical Exam Psychiatric: Orientation: alert and oriented x 3 Speech: normal rate/rhythm/volume of speech Mood: no depressed mood ("tired") Thought Process: goal directed thought process Thought Content: reality based without delusions Suicidal Thoughts: denies suicidal thoughts Homicidal Thoughts: denies homicidal thoughts Hallucinations: no auditory hallucinations and no visual hallucinations Cognition: recent memory grossly intact, remote memory grossly intact, attention grossly intact and language grossly intact Insight: + fair insight Judgement: + limited judgement Vital Signs (Past 24 Hours): Last Vital Signs Temp 36.6 C 11/13/21 09:06 Pulse 67 11/13/21 09:06 Resp 18 11/13/21 09:06 BP 135/90 11/13/21 10:00 Pulse Ox 97 11/13/21 09:06 Review of Systems All systems reviewed & are unremarkable except as noted in HPI & below Results & Data (PSY) Laboratory Results TSH nml, UDS positive for THC, MDMA and amp/methamp on initial screening- confirmatory testing pending. Medications Administered Bupropion HCl (Bupropion Sr 150 Mg Tabcr) 150 mg PO BID GABRIELLE Stop: 12/12/21 22:57 Last Admin: 11/13/21 09:58 Dose: 150 mg Documented by: [id number] Admin: 11/12/21 23:31 Dose: 150 mg Documented by: [id number] Buspirone HCl (Buspirone 5 Mg Tab) 10 mg PO BID GABRIELLE Stop: 12/12/21 22:57 Last Admin: 11/13/21 09:55 Dose: 10 mg Documented by: [id number] Admin: 11/12/21 23:32 Dose: 10 mg Documented by: [id number] Cyanocobalamin (Cyanocobalamin (B-12) 500 Mcg Tablet) 1,000 mcg PO DAILY GABRIELLE Stop: 12/13/21 08:59 Last Admin: 11/13/21 09:56 Dose: 1,000 mcg Documented by: [id number] Doxycycline Hyclate (Doxycycline Hyclate 100 Mg Cap) 100 mg PO BID GABRIELLE Stop: 11/20/21 08:59 Last Admin: 11/13/21 09:57 Dose: 100 mg Documented by: [id number] Ferrous Sulfate (Ferrous Sulfate 325 Mg Tab) 325 mg PO QDL GABRIELLE Stop: 12/13/21 11:29 Last Admin: 11/13/21 11:25 Dose: 325 mg Documented by: [id number] Folic Acid (Folic Acid 1 Mg Tab) 1 mg PO DAILY GABRIELLE Stop: 12/13/21 08:59 Last Admin: 11/13/21 09:55 Dose: 1 mg Documented by: [id number] Gabapentin (Gabapentin 300 Mg Cap) 300 mg PO TID GABRIELLE Stop: 12/12/21 22:57 Last Admin: 11/13/21 09:58 Dose: 300 mg Documented by: [id number] Admin: 11/12/21 23:32 Dose: 300 mg Documented by: [id number] Miscellaneous (Remove Nicoderm Patch) 1 ea N/A [id number] [facility] Stop: 12/13/21 08:58 Last Admin: 11/13/21 09:53 Dose: Not Given Documented by: [id number] Multivitamins/Minerals (Cerovite Adv Formula Tab) 1 tab PO QDL GABRIELLE Stop: 12/13/21 11:29 Last Admin: 11/13/21 11:25 Dose: 1 tab Documented by: [id number] Nicotine (Nicotine 14 Mg/24 Hr Patch) 14 mg TD DAILY [facility] Stop: 12/13/21 08:59 Last Admin: 11/13/21 09:53 Dose: 14 mg Documented by: [id number] Prazosin HCl (Prazosin Hcl 1 Mg Cap) 1 mg PO BID GABRIELLE Stop: 12/12/21 22:57 Last Admin: 11/13/21 10:01 Dose: 1 mg Documented by: [id number] Admin: 11/12/21 23:33 Dose: 1 mg Documented by: [id number] Rivaroxaban (Rivaroxaban 15 Mg Tab) 15 mg PO BIDM [facility] Stop: 12/03/21 08:01 Last Admin: 11/13/21 09:52 Dose: 15 mg Documented by: [id number] Admin: 11/12/21 22:29 Dose: 15 mg Documented by: [id number] Sertraline HCl (Sertraline Hcl 100 Mg Tablet) 200 mg PO DAILY GABRIELLE Stop: 12/13/21 08:59 Last Admin: 11/13/21 09:57 Dose: 200 mg Documented by: [id number] Thiamine HCl (Thiamine Hcl 100 Mg Tab) 100 mg PO DAILY [facility] Stop: 12/13/21 08:59 Last Admin: 11/13/21 09:56 Dose: 100 mg Documented by: [id number] Vitamin B Complex (Vitamin B Complex Tab) 1 tab PO QAM [facility] Stop: 12/13/21 10:29 Last Admin: 11/13/21 11:24 Dose: 1 tab Documented by: [id number] Coding Level of Care Code 32640 Inpt Consult Level 3 Diagnoses Methamphetamine use disorder, moderate, in early remission F15.21 COVID-19 U07.1 Anxiety F41.9 Post traumatic stress disorder (PTSD) F43.10
--- NOTE | 2021-11-13 15:01 | Hospitalist Progress Note ---
Date of Service November 13, 2021 Assessment & Plan (1) Pneumonia due to COVID-19 virus: Plan: 36-year-old lady with PMH of HTN, HLD, gastric bypass, RUE DVT [medication noncompliance], chronic anemia [baseline hemoglobin 9-10], anxiety/mood disorder, substance abuse, past alcohol abuse, ongoing tobacco abuse presented to our ED 11/12 seeking medical clearance prior to acceptance at psychiatric facility for worsening anxiety and substance abuse issues. Of note, recent confinement at [facility] last month for lorazepam/Ambien overdose s/p intubation. Patient was discharged to [facility] and then after discharge from there, per mother patient started to use drugs again and her mother thinks patient is homeless. Patient also had recent visits to the ED multiple times on 10/25 [RUE DVT, discharged on Xarelto course], 11/08 [syncope and dehydration], 11/10 [dizziness]. She is being managed for the following: #. Pneumonia due to COVID-19 virus #. 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 11/12 COVID positive. Patient reports 2 days history of junky cough symptoms without chest pain or shortness of breath. Per Pt's mother, she is atleast vaccinated twice against covid, not sure about booster. Admitting CTAP: No intra-abdominal abnormalities noted. Groundglass opacities in the bilateral lung bases likely infectious versus inflammatory process. Patient on room air, continue with doxycycline 11/13, incentive spirometer. #. Aphthous ulcer: Kenalog Orabase and lidocaine swish and spit. #. Anemia Baseline hemoglobin 9-10, hemoglobin stable above 9, FOBT negative at ER, iron profile suggestive of iron deficiency anemia. Continue with iron supplement. Patient will need follow-up iron studies in 2 to 3 months as an outpatient. Continue with vitamin B12 and folate supplement. H&H daily or as needed. #. Mood disorder/anxiety, suboptimal #. Substance abuse #. Past alcohol abuse #. Ongoing tobacco abuse Admitting UDS positive for amphetamine and ecstasy. Other results pending. No SI or HI. Psychiatry evaluated. Discussed with psychiatry, no psych safety concerns. Social service to help with discharge planning. Nicotine patch as needed. #. Other chronic medical conditions: HTN not on meds, history of gastric bypass, RUE DVT [recent diagnosis], Continue with home meds as and when appropriate. #. DVT prophylaxis: Xarelto #. CODE STATUS: Full 11/13: Pt's mother given update (after receiving TT from RN). #. Patient's mother Ms. Mariana Ny, contact #[phone]. Admission and Anticipated Discharge Date Admission Date: November 12, 2021 Subjective Patient seen and examined at bedside as a follow-up of pneumonia due to COVID-19 virus with likely superimposed bacterial infection and drug abuse. Patient was lying in bed, mild restlessness, on room air, no new acute events overnight. Patient reporting overall soreness throughout, limiting oral opening, limiting exam, I could see 1 aphthous ulcer on right base of the tongue. Patient reporting whole body ache, diarrhea about the same. 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 Patient reports cough and runny nose slightly improving. Reports decreased appetite due to oral sore. Physical Exam Physical Exam: GENERAL: Alert and oriented x3. Mild distress, on RA. HEENT: No pallor, no icterus. Pupils equal, round and reactive to light. Oral mucosa moist. limited oral opening d/t soreness, aphthous ulcer noted. NECK: No JVD, no neck masses. HEART: S1 and S2 heard. Regular rate and rhythm. No murmur, no gallop. RESPIRATORY SYSTEM: Normal AP diameter. No accessory muscle use. No wheezing, no crackles. ABDOMEN: Soft, bowel sounds present, minimal tender on deep palpation, no distention. CENTRAL NERVOUS SYSTEM: No facial droop. Speech is clear. Obeys simple commands. Moves extremities. EXTREMITIES: No edema, no erythema seen. Results & Data Results & Data ([facility]) Vital Signs (Past 12 Hours) Vital Signs Temp Pulse Resp BP Pulse Ox 11/13/21 10:00 135/90 11/13/21 09:06 36.6 C 67 18 120/77 97
[2021-11-13] MEDS: TRIAMCINOLONE ACET 0.1% ORABASE 5 GM TUBE MT SCH ×3 (15:32→19:56)
[2021-11-13] MEDS: LIDOCAINE VISCOUS 2% 15 ML UDC TOP PRN (15:33)
[2021-11-13] MEDS: FERROUS SULFATE 325 MG TAB PO SCH (17:32)
[2021-11-14 07:44] LABS: Hematocrit (blood only) 31.5 % (37-47); Mean Corpuscular Hgb Conc 31.7 g/dL (32-36); Mean Corpuscular Volume 88.2 fL (80-100); Mean Platelet Volume 10.4 fL (7.4-10.4); Platelet Count 189 K/uL (130-400); RDW Coefficient of Variation 15.5 % (11.5-14.5); RDW Standard Deviation 50.4 fL (36.4-46.3); Red Blood Count 3.57 M/uL (4.2-5.4); White Blood Count 3.28 K/uL (4.8-10.8)
[2021-11-14 08:14] LABS: BUN Creatinine Ratio 7.9 (10-20); Calcium 8.1 mg/dl (8.5-10.1); Creatinine Clr Calc Pharmacy 115.3 ml/min; Est GFR (African American) 117.8 ml/min; Est GFR (Non-African American) 101.6 ml/min; Magnesium 1.9 mg/dl (1.7-2.4); Phosphorus 3.2 mg/dl (2.5-4.9); Potassium 3.9 mmol/L (3.5-5.1)
[2021-11-14] MEDS: THIAMINE HCL 100 MG TAB PO SCH (09:12)
[2021-11-14] MEDS: busPIRone 5 MG TAB PO SCH (09:12)
[2021-11-14] MEDS: buPROPion SR 150 MG TABCR PO SCH (09:12)
[2021-11-14] MEDS: VITAMIN B COMPLEX TAB PO SCH (09:12)
[2021-11-14] MEDS: CYANOCOBALAMIN (B-12) 500 MCG TABLET PO SCH (09:13)
[2021-11-14] MEDS: NICOTINE 14 MG/24 HR PATCH TD SCH (09:13)
[2021-11-14] MEDS: FOLIC ACID 1 MG TAB PO SCH (09:13)
[2021-11-14] MEDS: PRAZOSIN HCL 1 MG CAP PO SCH (09:13)
[2021-11-14] MEDS: RIVAROXABAN 15 MG TAB PO SCH (09:13)
[2021-11-14] MEDS: DOXYCYCLINE HYCLATE 100 MG CAP PO SCH (09:13)
[2021-11-14] MEDS: FERROUS SULFATE 325 MG TAB PO SCH (09:13)
[2021-11-14] MEDS: SERTRALINE HCL 100 MG TABLET PO SCH (09:13)
[2021-11-14] MEDS: GABAPENTIN 300 MG CAP PO SCH (09:13)
[2021-11-14] MEDS: LIDOCAINE VISCOUS 2% 15 ML UDC TOP PRN (09:14)
[2021-11-14] MEDS: TRIAMCINOLONE ACET 0.1% ORABASE 5 GM TUBE MT SCH (09:15)
[2021-11-14] MEDS: CEROVITE ADV FORMULA TAB PO SCH (12:16)
--- NOTE | 2021-11-14 12:59 | Discharge Summary ---
Date of Service November 14, 2021 Admission HPI Per Admitting Provider History obtained from patient, family, and records. Limited history from patient secondary to uncooperativeness. Medical history significant for recent history of hypertension, hyperlipidemia, history of gastric bypass, RUE DVT (medication noncompliance ), chronic anemia (baseline hemoglobin 9-10), anxiety/mood disorder, substance abuse, past alcohol abuse, ongoing tobacco abuse. Recent confinement [facility] last month for lorazepam/Ambien drug overdose status post intubation. Patient discharged to [facility]. Following discharge from [facility], patient mother thinks carin spaulding is homeless and using drugs again. Patient seen at the ER on 3 occasions this month. 10/25 Visit for RUE swelling and outpatient RUE venous Dopplers for DVT. Patient discharged on Xarelto course. Patient unable to comply with prescription. 11/08 Patient seen for syncope and dehydration symptoms. Subsequently discharged. 11/10 Patient seen for dizziness symptoms. Subsequently discharged. Today patient returned to the ER seeking medical clearance prior to acceptance at psychiatric facility for worsening anxiety and substance abuse issues. Patient denies suicidality. 2 days history of junky cough symptoms without chest pain, SOB. Patient denies abdominal pain, black/bloody stools. Patient not sure about COVID-19 contacts. Unable to verify COVID-19 vaccination status. Medical History as above Surgical History : section, cystoscopy, dental surgery, foot/toe surgery, gastric bypass/sleeve gastrectomy, left knee surgery, diagnostic laparoscopy, tonsillectomy/adenoidectomy Family History : DM, heart disease Personal/Social history : Half pack daily, past alcohol abuse, currently unemployed Admission Exam Per Admitting Provider GENERAL: uncomfortable, irate, unkempt, no respiratory distress SKIN: Pallor,, warm HEENT: Pale palpebral conjunctivae, no ptosis, dry buccal mucosa NECK : Supple, no tenderness CHEST : Decreased breath sounds, no tenderness HEART : RRR, no obvious murmurs ABDOMEN: Some distention, nontender RECTAL : Intact sphincter, yellow stool (FOBT negative) EXTREMITIES : No LE swelling/tenderness, no other conspicuous deformities noted NEUROLOGIC : Uncooperative, no facial asymmetry, gait and stance not assessed Principal Diagnosis Pneumonia due to COVID-19 virus Likely superimposed bacterial infection Aphthous ulcer Mood disorder/anxiety disorder Ongoing tobacco abuse Substance abuse Chronic anemia Discharge Exam GENERAL: Alert and oriented x3. NAD, on RA. No SI/HI. HEENT: No pallor, no icterus. Pupils equal, round and reactive to light. Oral mucosa moist. Oral opening better, better pain control. NECK: No JVD, no neck masses. HEART: S1 and S2 heard. Regular rate and rhythm. No murmur, no gallop. RESPIRATORY SYSTEM: Normal AP diameter. No accessory muscle use. No wheezing, no crackles. ABDOMEN: Soft, bowel sounds present, minimal tender on deep palpation, no distention. CENTRAL NERVOUS SYSTEM: No facial droop. Speech is clear. Obeys simple commands. Moves extremities. EXTREMITIES: No edema, no erythema seen. Discharge Data Allergies Allergy/AdvReac Type Severity Reaction Status Date / Time No Known Allergies Allergy Verified 11/12/21 19:31 Consultations 11/12/21 18:48 ED Decision to Admit Stat 11/12/21 22:38 Consult Psychiatry Routine Ordered Studies 11/12/21 15:44 CT abd pelvis IV con only Stat Hospital Course (1) Pneumonia due to COVID-19 virus: 36-year-old lady with PMH of HTN, HLD, gastric bypass, RUE DVT [medication noncompliance], chronic anemia [baseline hemoglobin 9-10], anxiety/mood disorder, substance abuse, past alcohol abuse, ongoing tobacco abuse presented to our ED 11/12 seeking medical clearance prior to acceptance at psychiatric facility for worsening anxiety and substance abuse issues. Of note, recent confinement at [facility] last month for lorazepam/Ambien overdose s/p intubation. Patient was discharged to [facility] and then after discharge from there, per mother patient started to use drugs again and her mother thinks patient is homeless. Patient also had recent visits to the ED multiple times on 10/25 [RUE DVT, discharged on Xarelto course], 11/08 [syncope and dehydration], 11/10 [dizziness]. She was managed for the following: #. Pneumonia due to COVID-19 virus #. 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 11/12 COVID positive. Patient reports 2 days history of junky cough symptoms without chest pain or shortness of breath. Per Pt's mother, she is atleast vaccinated twice against covid, not sure about booster. Admitting CTAP: No intra-abdominal abnormalities noted. Groundglass opacities in the bilateral lung bases likely infectious versus inflammatory process. Patient on room air, continue with doxycycline 11/13, which will be continued upon discharge to complete the course. Pt on RA, hemodynamically stable. #. Aphthous ulcer: Kenalog Orabase and lidocaine swish and spit. Continued upon DC for 5-7 days. #. Anemia Baseline hemoglobin 9-10, hemoglobin stable above 9, FOBT negative at ER, iron profile suggestive of iron deficiency anemia. Continue with iron supplement. Patient will need follow-up iron studies in 2 to 3 months as an outpatient. Continue with vitamin B12 and folate supplement. #. Mood disorder/anxiety, suboptimal #. Substance abuse: counselled, pt vocalizes understanding. CM to assist w/ resources. #. Past alcohol abuse #. Ongoing tobacco abuse Admitting UDS positive for amphetamine and ecstasy. Other results pending. No SI or HI. Psychiatry evaluated. Discussed with psychiatry, no psych safety concerns. Social service to help with discharge planning. Pt not accepted at psych facility due to COVID-positive status, patient does not like to stay in the hospital and would like to go home. Nicotine patch as needed. #. Other chronic medical conditions: HTN not on meds, history of gastric bypass, RUE DVT [recent diagnosis], Continue with home meds as and when appropriate. #. DVT prophylaxis: Xarelto #. CODE STATUS: Full 11/13: Pt's mother given update (after receiving TT from RN). #. Patient's mother Ms. Mariana Ny, contact #[phone]. Patient does not want to stay in the hospital and would like to go home, he is being discharged with following instruction at the point of discharge: Follow-up with your primary care physician within a week time. For your anxiety/mood disorder/substance abuse disorder, maintain follow-up with your psychiatry as an outpatient. Our inpatient psychiatry evaluated you while in hospital. It is very important that you follow-up with your psychiatry as an outpatient. You were recently diagnosed with RUE DVT on 10/25, you were supposed to be on Xarelto course after that but appears that it was not started. You have been started on Xarelto course while in this admission, you will need 15 mg Xarelto twice a day for 19 more days [38 doses]. After that you will be needing 20 mg Xarelto daily. Follow-up with your primary care physician for further prescription and Xarelto, you will be discharged with 38 doses of Xarelto at discharge. For your aphthous ulcer, use a steroid and as needed lidocaine as prescribed. You will be discharged on oral antibiotic to complete the course for likely superimposed bacterial infection on your pneumonia due to COVID-19 virus. Continue to take your iron supplements and vitamin supplements. Get your blood work CBC and CMP done in a week time and have the results forwarded to your primary care physician. Follow-up iron studies in 2 to 3 months as an outpatient, f/u w/ PCP regarding this. Take your medications as prescribed. Total Time Total Time Spent Total Time Spent (In Minutes): 40 Discharge Plan Discharge Items Patient Disposition: Home - Self-Care Reason For Visit: COVID PNEUMONIA Discharge Diagnosis: Pneumonia due to COVID-19 virus Likely superimposed bacterial infection Aphthous ulcer Mood disorder/anxiety disorder Ongoing tobacco abuse Substance abuse Chronic anemia Condition on Discharge: Fair Activity: Resume your previous activity Non-emergency contact: Primary Care Provider Call non-emergency contact if: you have any medication questions, your symptoms worsen and your temperature is above 101 Follow-up/Referrals: Isaiah Jones MD [Primary Care Provider] - (Date & Time 11/16/2021 3:00 PM Provider Isaiah Jones MD [facility] ) Diet: Regular Addtl Attending Provider Instructions: Follow-up with your primary care physician within a week time. For your anxiety/mood disorder/substance abuse disorder, maintain follow-up with your psychiatry as an outpatient. Our inpatient psychiatry evaluated you while in hospital. It is very important that you follow-up with your psychiatry as an outpatient. You were recently diagnosed with RUE DVT on 10/25, you were supposed to be on Xarelto course after that but appears that it was not started. You have been started on Xarelto course while in this admission, you will need 15 mg Xarelto twice a day for 19 more days [38 doses]. After that you will be needing 20 mg Xarelto daily. Follow-up with your primary care physician for further prescription and Xarelto, you will be discharged with 38 doses of Xarelto at discharge. For your aphthous ulcer, use a steroid and as needed lidocaine as prescribed. You will be discharged on oral antibiotic to complete the course for likely superimposed bacterial infection on your pneumonia due to COVID-19 virus. Continue to take your iron supplements and vitamin supplements. Get your blood work CBC and CMP done in a week time and have the results forwarded to your primary care physician. Follow-up iron studies in 2 to 3 months as an outpatient, f/u w/ PCP regarding this. Take your medications as prescribed. Pending Studies at Discharge: No Stand-Alone Forms: My [facility], Smoking Cessation Medications and DC Order Prescriptions: New doxycycline hyclate 100 mg Capsule 100 mg PO BID 7 Days Qty: 14 RF: 0 Xarelto 15 mg Tablet 15 mg PO BIDM 19 Days Qty: 38 RF: 0 lidocaine HCl [Lidocaine Viscous] 2 % Solution 3 ml topical TID PRN (Reason: Mouth sore) 5 Days Qty: 100 RF: 0 triamcinolone acetonide 0.1 % Paste 1 applic MT BID 5 Days Qty: 5 RF: 0 Continued sertraline 100 mg tablet 200 mg PO DAILY RF: 0 ferrous sulfate [iron] 325 mg (65 mg iron) Tablet 325 mg PO QDL RF: 0 bupropion HCl [Wellbutrin SR] 150 mg Tablet Sustained-Release 12 Hr 150 mg PO BID RF: 0 prazosin 1 mg Capsule 1 mg PO BID RF: 0 cyanocobalamin (vitamin B-12) [Vitamin B-12] 1,000 mcg Tablet 1,000 mcg PO DAILY RF: 0 thiamine HCl (vitamin B1) [Vitamin B-1] 100 mg Tablet 100 mg PO DAILY RF: 0 buspirone 10 mg Tablet 10 mg PO BID RF: 0 gabapentin 300 mg Capsule 300 mg PO TID RF: 0 folic acid 1 mg Tablet 1 mg PO DAILY RF: 0 hydroxyzine HCl 25 mg Tablet 25 mg PO QID PRN (Reason: Anxiety) RF: 0 haloperidol lactate 5 mg/mL Solution 5 mg IM Q6H PRN (Reason: Agitation) RF: 0 nicotine 7 mg/24 hr Patch 24 Hour 1 patch TRANSDERMAL DAILY RF: 0 cholecalciferol (vitamin D3) [Vitamin D3] 25 mcg (1,000 unit) Capsule 75 mcg PO DAILY RF: 0 multivitamin,[id number] Tablet 1 tab PO DAILY RF: 0 Discharge Orders: Discharge Order (Routine); Ordered 11/14/21 Ordered By: Kary Candelaria/Other Patient Handouts: Substance Abuse Rehab Program, Addiction Disease Understand Admission Data Admit Date/Time: 11/12/21 20:35 Attending Provider: Kary Landin Admit Provider: Tejas Martinez Primary Care Provider: Isaiah Jones Other Providers: Tejas Martinez ; Alexandra Álvarez ; Laureen Wayne ; Aida Miguel
== END 2021-11-14 16:54 | disposition home or self-care (01) | DRG 177 ==
LOC: ED 13:34 → 3W 20:35